=== PATIENT | female | born 1955 | race Caucasian/White ===

== ENCOUNTER → 2016-10-02 | Outpatient (CLI) | payer MEDICARE, OTHER ==
--- NOTE | 2016-10-02 19:48 | WWHP ---
DATE OF DICTATION: 10/02/2016 CHIEF COMPLAINT: The patient's here for her routine gynecologic exam and mammogram. HISTORY OF PRESENT ILLNESS: This is a 61-year-old with an LMP of 2006. The patient has experienced occasional right pelvic and right lower quadrant abdominal pain. She states this has been infrequent and feels like gas pains. She states they are also fairly brief when they do occur. She is not certain how long it has been going on, but it has been at least the last couple of months. She denies any pain at this time. The patient had an abnormal Pap smear on 07/27/15 which showed ASCUS with positive high-risk HPV testing. Colposcopy was recommended, but she did not have this done. She states she did not do it for financial reasons. PAST MEDICAL HISTORY: 1. Hypothyroidism. 2. CIS of the right breast, status post lumpectomy in 2002. 3. CIS of the left breast, status post left lumpectomy. She did not require any adjuvant therapy. 4. ADHD. 5. Depression. 6. Anxiety. 7. Arthritis. 8. Gastroesophageal reflux disease. 9. Osteopenia. MEDICATIONS: 1. Synthroid 125 mcg daily. 2. Adderall 10 mg b.i.d. 3. Celexa 20 mg daily. 4. Omeprazole 40 mg daily. 5. Calcium supplement daily. 6. Vitamin D supplement daily. 7. Vitamin B complex daily. 8. Multivitamin daily. 9. Aleve p.r.n. ALLERGIES: VICODIN, which caused pruritus. PAST SURGICAL HISTORY: 1. section x3. 2. Right breast lumpectomy in 2002. 3. Knee surgery in the past. 4. Cholecystectomy. 5. Tonsillectomy. 6. Appendectomy. 7. Left lumpectomy in the past. 8. Colonoscopy with upper endoscopy in 2014; this was her second colonoscopy. 9. Right shoulder surgery in 2016. 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 No other history of STDs. FAMILY HISTORY: Mother had a CVA and aortic aneurysm. Grandmother had some type of cancer but is uncertain of the type. Both grandmothers had diabetes. Her son was diagnosed with colon cancer. SOCIAL HISTORY: She denies tobacco and drug use. She has zero to 1 alcoholic drinks per month. She is and has been with her boyfriend since 2011 and lives with him. She is considered disabled. REVIEW OF SYSTEMS: Weight has been stable. She denies cardiac or GI problems. RESPIRATORY: She is getting over a cold. PHYSICAL EXAM: Blood pressure 134/78. Height 5 feet 2-1/2 inches. Weight 174 pounds. Temperature 98.4, pulse 96. This is a well-developed, well-nourished white female who is alert and oriented x3, in no acute distress. HEENT is within normal limits. NECK: Supple without mass or thyromegaly. CHEST AND LUNGS: Clear to auscultation. HEART: Regular rate and rhythm. Breasts are without mass or discharge. Axillary exam is negative for adenopathy. BACK: Negative for CVA tenderness. ABDOMEN: Soft, nontender, without palpable masses. PELVIC EXAM: External genitalia reveal mild to moderate atrophy without lesions. Vagina reveals mild to moderate atrophy without lesions. There is no evidence of prolapse. The uterus is midposition, nongravid size and nontender. There are no palpable adnexal masses or tenderness. Rectovaginal exam is negative for mass or tenderness and is negative for occult blood. EXTREMITIES: Nontender. IMPRESSION: 1. A 61-year-old menopausal female with intermittent brief right pelvic pains without any significant physical findings at this time, and she is without pain at this time. 2. History of carcinoma in situ of the breasts with normal breast exam. 3. History of osteopenia. 4. History of abnormal Pap smear showing ASCUS with positive high-risk HPV; colposcopic followup was not done as recommended. PLAN: 1. Pap smear was performed. If the Pap smear shows the same or anything greater, she will again be sent for colposcopic examination. 2. Self breast examination was discussed. 3. Mammogram will be done today. 4. Osteoporosis prevention was discussed. Will plan on repeating bone density testing next year. 5. Pelvic ultrasound will be ordered. 6. She will return in one year.
--- NOTE | 2016-10-03 09:38 | MM ---
Reason for exam: screening (asymptomatic). Last mammogram was performed 1 year and 2 months ago. History: Patient is postmenopausal and has history of breast cancer at age 48. Excisional biopsy of the left breast, December 03, 2006. Benign US left CoreBiopsy of the left breast, May 31, 2006. Lumpectomy of the right breast, April 2003. Malignant stereotactic core biopsy of the right breast, April 08, 2003. Physical Findings: A clinical breast exam by your physician is recommended on an annual basis and results should be correlated with mammographic findings. MG 3D Screening Mammo W/Cad Bilateral CC and MLO view(s) were taken. Prior study comparison: July 27, 2015, bilateral MG 3d diag mammo w/cad SH[facility]ON. July 14, 2014, bilateral MG diagnostic mammo w CAD SH[facility]ON. There are scattered fibroglandular densities. Finding: There is a 6 mm equal density (isodense), circumscribed round mass medially in the left breast. New finding since July 27, 2015 and July 14, 2014. ASSESSMENT: Incomplete: need additional imaging evaluation, BI-RAD 0 RECOMMENDATION: Special view mammogram of the left breast. If lesion persists on supplemental views, image directed ultrasound is recommended. [facility] will attempt to contact patient to return for supplemental views and ultrasound if indicated.
== END | disposition home or self-care (01) ==
LOC: WWCWWP 08:39
PROVIDERS: ATTEND Obstetrics & Gynecology
DX: Z12.31 Encounter for screening mammogram for malignant neoplasm of breast (principal); R92.8 Other abnormal and inconclusive findings on diagnostic imaging of breast
CPT/HCPCS: 77063; G0202

== ENCOUNTER 2016-10-18 08:11 | Emergency (ER) | payer MEDICARE, OTHER ==
--- NOTE | 2016-10-18 09:34 | XR ---
EXAMINATION TYPE: XR foot complete RT DATE OF EXAM: 10/18/2016 9:30 AM COMPARISON: NONE HISTORY: Pain TECHNIQUE: Three views are submitted. FINDINGS: Fracture involving the base proximal phalanx third digit with extension to the articular surface. Mil d displacement. Calcaneal spur noted. Arthropathy first MTP. IMPRESSION: 1. Fracture base proximal phalanx third digit.
--- NOTE | 2016-10-18 09:39 | ED ---
Lower Extremity Injury HPI - General Chief Complaint: Extremity Injury, Lower Stated Complaint: RT FOOT INJURY FROM FALL Time Seen by Provider: 10/18/16 09:00 Source: patient, RN notes reviewed Mode of arrival: ambulatory Limitations: no limitations - History of Present Illness Initial Comments: 61-year-old female presents emergency Department chief complaint right foot injury. Patient states that she slipped on some stairs caught her foot on the railing. Patient states there is bruising noted between the second and fourth digit. Patient states that it is painful to walk on. Patient offers no other complaints at this time. She states she's had a prior fracture right foot. Review of Systems ROS Statement: Those systems with pertinent positive or pertinent negative responses have been documented in the HPI. ROS Other: All systems not noted in ROS Statement are negative. Past Medical History Additional Past Medical History / Comment(s): seasonal allergies History of Any Multi-Drug Resistant Organisms: None Reported Past Surgical History: Adenoidectomy, Hysterectomy, Orthopedic Surgery, Tonsillectomy Additional Past Surgical History / Comment(s): tibia, replacement of right shoulder Past Psychological History: No Psychological Hx Reported Smoking Status: Never smoker Past Alcohol Use History: Occasional Past Drug Use History: None Reported General Exam Limitations: no limitations General appearance: alert, in no apparent distress Respiratory exam: Present: normal lung sounds bilaterally. Absent: respiratory distress, wheezes, rales, rhonchi, stridor Cardiovascular Exam: Present: regular rate, normal rhythm, normal heart sounds. Absent: systolic murmur, diastolic murmur, rubs, gallop, clicks Back exam: Present: other (Right foot ecchymosis noted from digits 2 through 4 with tenderness minimal tenderness and MTP joints., Neurovascular intact no ankle tenderness.) Neurological exam: Present: alert, oriented X3, CN II-XII intact Course Vital Signs 10/18/16 08:44 Temperature 97.9 F Pulse Rate 92 Respiratory 20 Rate Blood Pressure 142/75 O2 Sat by Pulse 98 Oximetry Medical Decision Making - Medical Decision Making 61-year-old female presented for right foot injury. Patient has a fracture of the third digit at the base. Patient we given postop shoe and discharge. - Radiology Data Radiology results: report reviewed, image reviewed X-ray right foot fracture of the third digit base Disposition Clinical Impression: Fracture of toe of right foot Disposition: HOME SELF-CARE Condition: Stable Instructions: Toe Fracture (ED) Additional Instructions: Please return to the Emergency Department if symptoms worsen or any other concerns. Time of Disposition: 09:39
[2016-10-18 09:47] VITALS: BP 157/68; PULSE 94; RESP 16; TEMP 98.6
== END 2016-10-18 09:46 | disposition home or self-care (01) ==
LOC: EC 08:11
DX: S92.511A Displaced fracture of proximal phalanx of right lesser toe(s), initial encounter for closed fracture (principal); Z98.890 Other specified postprocedural states; W10.9XXA Fall (on) (from) unspecified stairs and steps, initial encounter
CPT/HCPCS: 76856; 99283

== ENCOUNTER → 2016-10-18 | Outpatient (CLI) | payer MEDICARE, OTHER ==
--- NOTE | 2016-10-18 08:14 | MM ---
Reason for exam: additional evaluation requested from abnormal screening. Last mammogram was performed 1 month ago. History: Patient is postmenopausal and has history of breast cancer at age 48. Excisional biopsy of the left breast, December 03, 2006. Benign US left CoreBiopsy of the left breast, May 31, 2006. Lumpectomy of the right breast, April 2003. Malignant stereotactic core biopsy of the right breast, April 08, 2003. Physical Findings: Nurse did not find any significant physical abnormalities on exam. MG 3D Work Up W/Cad LT CC, MLO, and XCCM view(s) were taken of the left breast. Prior study comparison: October 02, 2016, bilateral MG 3d screening mammo w/cad. July 27, 2015, bilateral MG 3d diag mammo w/cad SH[facility]ON. July 14, 2014, bilateral MG diagnostic mammo w CAD SHARON. There are scattered fibroglandular densities. Lesion does not persist. It is well defined and correlates with mole or skin lesion on physical exam. These results were verbally communicated with the patient and result sheet given to the patient on 10/18/16. ASSESSMENT: Benign, BI-RAD 2 RECOMMENDATION: Return to routine screening mammogram schedule for both breasts.
--- NOTE | 2016-10-18 08:20 | US ---
EXAMINATION TYPE: US pelvic complete DATE OF EXAM: 10/18/2016 8:04 AM COMPARISON: NONE CLINICAL HISTORY: R10.2 RT PELVIC PAIN. Right side cramping that comes and goes. TECHNIQUE: Transabdominal (TA) pelvic ultrasound. Date of LMP: Postmenopausal EXAM MEASUREMENTS: Uterus: 6.9 x 4.2 x 2.7 cm Endometrial Stripe: 0.3 cm Right Ovary: 2.4 x 1.1 x 0.8 cm Left Ovary: 2.1 x 1.5 x 1.4 cm TECHNOLOGIST IMPRESSION: 1. Uterus: Anteverted wnl 2. Endometrium: wnl 3. Right Ovary: wnl 4. Left Ovary: wnl. 5. Bilateral Adnexa: wnl 6. Posterior cul-de-sac: no free fluid Cervix- nabothian cyst Uterus is anteverted in shape and within normal limits in size. Endometrial stripe is not well seen a nd presumed not thickened. A 6 mm cystic lesion anteriorly of cervix could reflect small nabothian cy st. No free fluid is seen in pelvic cul-de-sac. Both ovaries are identified. No concerning adnexal masses seen. IMPRESSION: No significant finding is seen to account for patient's symptoms.
== END | disposition home or self-care (01) ==
LOC: RADUSWWP 07:11
PROVIDERS: ATTEND Obstetrics & Gynecology
DX: R10.2 Pelvic and perineal pain (principal)
CPT/HCPCS: 76856

== ENCOUNTER → 2017-10-08 | Outpatient (CLI) | payer MEDICARE ==
--- NOTE | 2017-10-08 10:29 | WWHP ---
[facility] - HISTORY AND PHYSICAL DATE OF SERVICE: 10/08/2017 CHIEF COMPLAINT: The patient is here for her routine gynecologic exam and mammogram. HPI: This is a 62-year-old, G3, P3 with an LMP of 2006. The patient has a new sexual partner and has been having some vaginal dryness. She has been using coconut oil as a lubricant. She also has been treated for urinary tract infections a couple of times over the past year. She denies any postmenopausal bleeding. PAST MEDICAL HISTORY: Hypothyroidism, CIS of the right breast and status post right lumpectomy in 2002, CIS of the left breast and status post lumpectomy. Also history of ADHD, depression, anxiety, arthritis, gastroesophageal reflux disease and osteopenia. MEDICATIONS: 1. Synthroid 125 mcg daily. 2. Calcium 1200 mg daily. 3. Vitamin D3, 5000 units daily. 4. Centrum Silver 1 daily. 5. Cranberry supplement daily. 6. Adderall 10 mg 1 to 2 times daily. 7. Omeprazole 1 daily. ALLERGIES: Allergies to VICODIN. PAST SURGICAL HISTORY: Unchanged from the 10/02/2016 H and P. 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 FAMILY HISTORY: Unchanged from the 10/02/2016 H and P. SOCIAL HISTORY: She denies tobacco and drug use and has 0 to 3 alcohol containing drinks per month. She is and has been with her current boyfriend since 2017, but does not live with him. She is considered disabled. REVIEW OF SYSTEMS: Weight has been stable. She denies respiratory, cardiac or GI problems. She has had occasional dizzy spells and has seen her doctor for this. PHYSICAL EXAM: Blood pressure 137/79, height 5 feet 2-1/2 inches, weight 176 pounds, temperature 97.7, pulse 86. This is a well-developed, well-nourished, white female, who is alert and oriented x3, in no acute distress. HEENT is within normal limits. NECK: Supple without mass or thyromegaly. CHEST AND LUNGS: Clear to auscultation. HEART: Regular rate and rhythm. Breasts are without mass or discharge. Axillary exam is negative for adenopathy. BACK: Negative for CVA tenderness. ABDOMEN: Soft, nontender, without palpable masses. PELVIC EXAM: External genitalia reveals mild atrophy without lesions. Cervix and vagina reveals mild atrophy without lesions. There is no evidence of prolapse. The uterus is mid position, nongravid size and nontender. There are no palpable adnexal masses or tenderness. Rectovaginal exam is negative for mass or tenderness and is negative for occult blood. EXTREMITIES: Nontender. IMPRESSION: 1. A 62-year-old menopausal female with normal gynecologic exam. 2. Vaginal dryness with sexual intercourse secondary to atrophy. 3. History of bilateral breast carcinoma in situ. 4. History of osteopenia. 5. History of previous ASCUS Pap smear with positive high-risk HPV testing in 07/2015 and she did have a normal Pap smear in 2017. PLAN: 1. Pap smear was repeated because of her history of ASCUS Pap smear. If this one is normal, we will return to regular cervical screening. 2. Self breast examination was discussed. 3. Mammogram will be done today. 4. Osteoporosis prevention was discussed. I have recommended bone density screening because of her history of osteopenia and she would like to do this next year. We have discussed the importance of adequate calcium, vitamin D and regular exercise. 5. We have discussed the option of vaginal estrogen because of her vaginal dryness, but because of her history of carcinoma in situ of both breasts, I have recommended to try without and she is in agreement with this. She will use vaginal lubricants and vaginal moisturizer over the counter. 6. She will return in 1 year. MMODL / IJN: [id number] /
--- NOTE | 2017-10-10 10:11 | MM ---
Reason for exam: screening (asymptomatic). Last mammogram was performed 1 year ago. History: Patient is postmenopausal and has history of breast cancer at age 48. Excisional biopsy of the left breast, December 03, 2006. Benign US left CoreBiopsy of the left breast, May 31, 2006. Lumpectomy of the right breast, April 2003. Malignant stereotactic core biopsy of the right breast, April 08, 2003. Physical Findings: A clinical breast exam by your physician is recommended on an annual basis and results should be correlated with mammographic findings. MG 3D Screening Mammo W/Cad Bilateral CC and MLO view(s) were taken. Prior study comparison: October 18, 2016, left breast MG 3d work up w/cad LT. October 02, 2016, bilateral MG 3d screening mammo w/cad. The breast tissue is heterogeneously dense. This may lower the sensitivity of mammography. There is no discrete abnormality. ASSESSMENT: Negative, BI-RAD 1 RECOMMENDATION: Follow-up diagnostic mammogram of both breasts in 1 year.
== END | disposition home or self-care (01) ==
LOC: WWCWWP 09:48
PROVIDERS: ATTEND Obstetrics & Gynecology
DX: Z12.31 Encounter for screening mammogram for malignant neoplasm of breast (principal)
CPT/HCPCS: 77063; 77067

== ENCOUNTER 2018-05-01 12:50 | Observation (INO) | payer MEDICARE, OTHER ==
[2018-05-01 14:03] LABS: Basophils % (A) 1 %; Eosinophils # (A) 0.2 k/uL (0-0.7); Eosinophils % (A) 3 %; HCT 42.9 % (34.0-46.0); HGB 13.8 gm/dL (11.4-16.0); Lymphocytes # (A) 1.7 k/uL (1.0-4.8); Lymphocytes % (A) 30 %; MCH 28.6 pg (25.0-35.0); MCHC 32.1 g/dL (31.0-37.0); MCV 89.1 fL (80.0-100.0); Mean Platelet Volume 7.7; Monocytes # (A) 0.3 k/uL (0-1.0); Monocytes % (A) 6 %; Neutrophils # (A) 3.3 k/uL (1.3-7.7); Neutrophils % (A) 57 %; Platelet Count 162 k/uL (150-450); RBC 4.81 m/uL (3.80-5.40); RDW 13.6 % (11.5-15.5); WBC 5.7 k/uL (3.8-10.6)
[2018-05-01 14:07] LABS: Appearance,Urine Clear (Clear); Bacteria,Urine Rare /hpf; Bilirubin,Urine Negative (Negative); Blood,Urine Negative (Negative); Color,Urine Yellow; Glucose,Urine (UA) Negative (Negative); Ketones,Urine Negative (Negative); Leukocyte Esterase,Urine Small (Negative); Nitrite,Urine Negative (Negative); PH, Urine 7.5 (5.0-8.0); Protein,Urine Negative (Negative); RBC,Urine 1 /hpf (0-5); Squamous Epithelial Cell,Urine 4 /hpf (0-4); Urobilinogen,Urine <2.0 mg/dL (<2.0); WBC,Urine <1 /hpf (0-5)
[2018-05-01 14:15] LABS: ALT 16 U/L (9-52); AST 21 U/L (14-36); Albumin 4.2 g/dL (3.5-5.0); Alkaline Phosphatase 86 U/L (38-126); Anion Gap 9 mmol/L; Blood Urea Nitrogen 10 mg/dL (7-17); Calcium 9.6 mg/dL (8.4-10.2); Carbon Dioxide 29 mmol/L (22-30); Chloride 105 mmol/L (98-107); Glucose 100 mg/dL (74-99); Potassium 4.4 mmol/L (3.5-5.1); Sodium 143 mmol/L (137-145); Total Bilirubin 0.5 mg/dL (0.2-1.3); Total Protein 7.5 g/dL (6.3-8.2)
--- NOTE | 2018-05-01 14:23 | ED ---
Dizziness HPI - General Chief Complaint: Dizziness Stated Complaint: Dizzy/fall Time Seen by Provider: 05/01/18 14:00 Source: patient, RN notes reviewed Mode of arrival: wheelchair Limitations: no limitations - History of Present Illness Initial Comments: This is a 63-year-old female who presents with complaints of dizziness she's been seen by Dr. bolden dizziness she was sent in for evaluation while driving she became dizzy again. She states she gets dizzy intermittently today was while driving she denies any focal deficits she states that in February of this year she did trip and fall he had bruising to her face and had no focal weakness. The dizziness associated worse with walking she states. She's had no cough phlegm production no loss of function to her upper or lower extremities she has noticed L on and off palpitations. She complains some neck and occipital pain. She was never evaluated after her fall. MD Complaint: dizziness, lightheadedness - Related Data Home Medications Medication Instructions Recorded Confirmed Dextroamphetamine/Amphetamine 10 mg PO BID 10/18/16 05/01/18 [Adderall] Levothyroxine Sodium [Synthroid] 125 mcg PO DAILY 10/18/16 05/01/18 Omeprazole [PriLOSEC] 40 mg PO HS 10/18/16 05/01/18 Cholecalciferol [Vitamin D3] 5,000 unit PO DAILY 05/01/18 05/01/18 Fexofenadine HCl [Leelee Allergy] 180 mg PO DAILY 05/01/18 05/01/18 Multivit-Min/Iron/Folic/Lutein 1 tab PO DAILY 05/01/18 05/01/18 [Centrum Silver Women Tablet] Naproxen Sodium [Aleve] 220 mg PO BID 05/01/18 05/01/18 Allergies Allergy/AdvReac Type Severity Reaction Status Date / Time codeine Allergy Itching Verified 05/01/18 14:05 Review of Systems ROS Statement: Those systems with pertinent positive or pertinent negative responses have been documented in the HPI. ROS Other: All systems not noted in ROS Statement are negative. Past Medical History Past Medical History: GERD/Reflux, Thyroid Disorder Additional Past Medical History / Comment(s): seasonal allergies History of Any Multi-Drug Resistant Organisms: None Reported Past Surgical History: Adenoidectomy, Section, Orthopedic Surgery, Tonsillectomy Additional Past Surgical History / Comment(s): tibia, replacement of right shoulder Past Psychological History: ADD/ADHD Smoking Status: Never smoker Past Alcohol Use History: Occasional Past Drug Use History: None Reported General Exam - General Exam Comments Initial Comments: This is a well-developed well-nourished awake alert oriented 3 female Limitations: no limitations General appearance: alert, in no apparent distress Head exam: Present: atraumatic, normocephalic, normal inspection Eye exam: Present: normal appearance, PERRL, EOMI. Absent: scleral icterus, conjunctival injection, periorbital swelling ENT exam: Present: normal exam, mucous membranes moist Neck exam: Present: normal inspection, tenderness. Absent: meningismus, lymphadenopathy Respiratory exam: Present: normal lung sounds bilaterally. Absent: respiratory distress, wheezes, rales, rhonchi, stridor Cardiovascular Exam: Present: normal rhythm, tachycardia, normal heart sounds. Absent: systolic murmur, diastolic murmur, rubs, gallop, clicks GI/Abdominal exam: Present: soft, normal bowel sounds. Absent: distended, tenderness, guarding, rebound, rigid Extremities exam: Present: normal inspection, full ROM, normal capillary refill. Absent: tenderness, pedal edema, joint swelling, calf tenderness Back exam: Present: normal inspection Neurological exam: Present: alert, oriented X3, CN II-XII intact Psychiatric exam: Present: normal affect, normal mood Skin exam: Present: warm, dry, intact, normal color. Absent: rash Course Vital Signs 05/01/18 05/01/18 05/01/18 12:54 15:00 16:00 Temperature 98.6 F Pulse Rate 117 H 90 90 Respiratory 20 20 18 Rate Blood Pressure 156/81 134/78 130/74 O2 Sat by Pulse 99 99 98 Oximetry EKG Findings - EKG Results: EKG: interpreted by ERMD, WNL, sinus rhythm, normal axis, normal QRS, normal ST/ T, no acute changes (Sinus rhythm rate 86. Interval 122 QRS duration 74 QT since QTC 388/[address]-T wave changes.) Medical Decision Making - Medical Decision Making The patient persists in being dizzy. She will be admitted for evaluation by both cardiology and neurology. - Lab Data Result diagrams: 05/01/18 13:40 05/01/18 13:40 Lab Results 05/01/18 05/01/18 05/01/18 Range/Units 13:40 13:40 13:40 WBC 5.7 (3.8-10.6) k/uL RBC 4.81 (3.80-5.40) m/uL Hgb 13.8 (11.4-16.0) gm/dL Hct 42.9 (34.0-46.0) % MCV 89.1 (80.0-100.0) fL MCH 28.6 (25.0-35.0) pg MCHC 32.1 (31.0-37.0) g/dL RDW 13.6 (11.5-15.5) % Plt Count 162 (150-450) k/uL Neutrophils % 57 % Lymphocytes % 30 % Monocytes % 6 % Eosinophils % 3 % Basophils % 1 % Neutrophils # 3.3 (1.3-7.7) k/uL Lymphocytes # 1.7 (1.0-4.8) k/uL Monocytes # 0.3 (0-1.0) k/uL Eosinophils # 0.2 (0-0.7) k/uL Basophils # 0.0 (0-0.2) k/uL Sodium 143 (137-145) mmol/L Potassium 4.4 (3.5-5.1) mmol/L Chloride 105 (98-107) mmol/L Carbon Dioxide 29 (22-30) mmol/L Anion Gap 9 mmol/L BUN 10 (7-17) mg/dL Creatinine 0.52 (0.52-1.04) mg/dL Est GFR (CKD-EPI)AfAm >90 (>60 ml/min/1.73 sqM) Est GFR (CKD-EPI)NonAf >90 (>60 ml/min/1.73 sqM) Glucose 100 H (74-99) mg/dL Calcium 9.6 (8.4-10.2) mg/dL Magnesium (1.6-2.3) mg/dL Total Bilirubin 0.5 (0.2-1.3) mg/dL AST 21 (14-36) U/L ALT 16 (9-52) U/L Alkaline Phosphatase 86 (38-126) U/L Total Creatine Kinase (30-135) U/L CK-MB (CK-2) (0.0-2.4) ng/mL CK-MB (CK-2) Rel Index Troponin I (0.000-0.034) ng/mL Total Protein 7.5 (6.3-8.2) g/dL Albumin 4.2 (3.5-5.0) g/dL TSH (0.465-4.680) mIU/L Urine Color Yellow Urine Appearance Clear (Clear) Urine pH 7.5 (5.0-8.0) Ur Specific [place] 1.010 (1.001-1.035) Urine Protein Negative (Negative) Urine Glucose (UA) Negative (Negative) Urine Ketones Negative (Negative) Urine Blood Negative (Negative) Urine Nitrite Negative (Negative) Urine Bilirubin Negative (Negative) Urine Urobilinogen <2.0 (<2.0) mg/dL Ur Leukocyte Esterase Small H (Negative) Urine RBC 1 (0-5) /hpf Urine WBC <1 (0-5) /hpf Ur Squamous Epith Cells 4 (0-4) /hpf Urine Bacteria Rare H (None) /hpf 05/01/18 05/01/18 Range/Units 13:40 13:40 WBC (3.8-10.6) k/uL RBC (3.80-5.40) m/uL Hgb (11.4-16.0) gm/dL Hct (34.0-46.0) % MCV (80.0-100.0) fL MCH (25.0-35.0) pg MCHC (31.0-37.0) g/dL RDW (11.5-15.5) % Plt Count (150-450) k/uL Neutrophils % % Lymphocytes % % Monocytes % % Eosinophils % % Basophils % % Neutrophils # (1.3-7.7) k/uL Lymphocytes # (1.0-4.8) k/uL Monocytes # (0-1.0) k/uL Eosinophils # (0-0.7) k/uL Basophils # (0-0.2) k/uL Sodium (137-145) mmol/L Potassium (3.5-5.1) mmol/L Chloride (98-107) mmol/L Carbon Dioxide (22-30) mmol/L Anion Gap mmol/L BUN (7-17) mg/dL Creatinine (0.52-1.04) mg/dL Est GFR (CKD-EPI)AfAm (>60 ml/min/1.73 sqM) Est GFR (CKD-EPI)NonAf (>60 ml/min/1.73 sqM) Glucose (74-99) mg/dL Calcium (8.4-10.2) mg/dL Magnesium 2.0 (1.6-2.3) mg/dL Total Bilirubin (0.2-1.3) mg/dL AST (14-36) U/L ALT (9-52) U/L Alkaline Phosphatase (38-126) U/L Total Creatine Kinase 35 (30-135) U/L CK-MB (CK-2) 1.0 (0.0-2.4) ng/mL CK-MB (CK-2) Rel Index 2.9 Troponin I <0.012 (0.000-0.034) ng/mL Total Protein (6.3-8.2) g/dL Albumin (3.5-5.0) g/dL TSH 0.869 (0.465-4.680) mIU/L Urine Color Urine Appearance (Clear) Urine pH (5.0-8.0) Ur Specific [place] (1.001-1.035) Urine Protein (Negative) Urine Glucose (UA) (Negative) Urine Ketones (Negative) Urine Blood (Negative) Urine Nitrite (Negative) Urine Bilirubin (Negative) Urine Urobilinogen (<2.0) mg/dL Ur Leukocyte Esterase (Negative) Urine RBC (0-5) /hpf Urine WBC (0-5) /hpf Ur Squamous Epith Cells (0-4) /hpf Urine Bacteria (None) /hpf - Radiology Data Radiology results: report reviewed (I did review the imaging and report no acute findings.), image reviewed Disposition Clinical Impression: Dizziness of unknown cause, Palpitations Disposition: ADMITTED IP TO THIS [facility] Condition: Stable Referrals: Paola Bhatt DO [Primary Care Provider] - 1-2 days
--- NOTE | 2018-05-01 14:50 | CT ---
EXAMINATION TYPE: CT brain wo con DATE OF EXAM: 05/01/2018 COMPARISON: None HISTORY: Dizziness CT DLP: [address] of the brain was performed. The ventricles, basal cisterns and sulci overlying the cerebral convexities demonstrate mild enlargem ent. There is no evidence for intracranial hemorrhage or sulcal effacement. There is decreased attenuation about the periventricular white matter and deep white matter of both c erebral hemispheres, compatible with chronic small vessel ischemia. Differential diagnosis does inclu de demyelination. Focal calcification left basal ganglia. No mass effects are seen.No midline shift. Osseous calvarium is intact. If symptoms persist consider MRI. IMPRESSION: 1. Age related atrophic and chronic small vessel ischemic change without acute intracranial process s een at this time.
[2018-05-01 14:52] LABS: Creatine Kinase 35 U/L (30-135)
--- NOTE | 2018-05-01 15:00 | XR ---
EXAMINATION TYPE: XR chest 2V DATE OF EXAM: 05/01/2018 COMPARISON: NONE TECHNIQUE: PA and lateral views submitted. HISTORY: Cough FINDINGS: The lungs are clear and there is no pneumothorax, pleural effusion, or focal pneumonia. Prostatic r ight shoulder. Diffuse osteopenia. No overt failure. Hypertrophic and degenerative change of the spin e. Postsurgical change right upper quadrant. IMPRESSION: 1. No acute process.
[2018-05-01 15:05] LABS: Troponin I <0.012 ng/mL (0.000-0.034)
[2018-05-01] MEDS ORDERED: NALOXONE 0.4 MG/ML 1 ML VIAL IV PRN (17:11)
[2018-05-01] MEDS ORDERED: MECLIZINE 12.5 MG TAB PO STA (17:15)
[2018-05-01] MEDS ORDERED: MECLIZINE 25 MG TAB PO PRN (18:28)
--- NOTE | 2018-05-01 18:29 | P.HPIM ---
History of Present Illness H&P Date: 05/01/18 Chief Complaint: Dizziness Patient is a 63-year-old female with past medical history of osteoarthritis, hypothyroidism, and GERD who presented to the ED with a chief complaint of dizziness. The patient notes that her dizziness has been ongoing for several years, described as a room spinning sensation, associated with certain head movements, alleviated with rest, with associated left ear fullness and pressure sensation. The most recent episode was earlier today, while the patient was driving and developed the sudden onset of dizziness with palpitations that she noted for the first time, and sensation that she was going to faint. She otherwise denied any associated visual disturbances, chest pain, shortness of breath, nausea, vomiting, weakness, numbness, or headache. The patient notes that she has seen many providers for this similar complaints without any definitive diagnosis being made. She was given meclizine by previous PCP which provided little relief. She is further denying abdominal pain, diarrhea, constipation, recent travel, or sick contacts. Review of Systems Pertinent positives and negatives as discussed in HPI, a complete review of systems was performed and all other systems are negative. Past Medical History Past Medical History: GERD/Reflux, Thyroid Disorder Additional Past Medical History / Comment(s): seasonal allergies History of Any Multi-Drug Resistant Organisms: None Reported Past Surgical History: Adenoidectomy, Section, Orthopedic Surgery, Tonsillectomy Additional Past Surgical History / Comment(s): tibia, replacement of right shoulder Past Psychological History: ADD/ADHD Smoking Status: Never smoker Past Alcohol Use History: Occasional Past Drug Use History: None Reported Medications and Allergies Home Medications Medication Instructions Recorded Confirmed Type Dextroamphetamine/Amphetamine 10 mg PO BID 10/18/16 05/01/18 History [Adderall] Levothyroxine Sodium [Synthroid] 125 mcg PO DAILY 10/18/16 05/01/18 History Omeprazole [PriLOSEC] 40 mg PO HS 10/18/16 05/01/18 History Cholecalciferol [Vitamin D3] 5,000 unit PO DAILY 05/01/18 05/01/18 History Fexofenadine HCl [Leelee Allergy] 180 mg PO DAILY 05/01/18 05/01/18 History Multivit-Min/Iron/Folic/Lutein 1 tab PO DAILY 05/01/18 05/01/18 History [Centrum Silver Women Tablet] Naproxen Sodium [Aleve] 220 mg PO BID 05/01/18 05/01/18 History Allergies Allergy/AdvReac Type Severity Reaction Status Date / Time codeine Allergy Itching Verified 05/01/18 14:05 Physical Exam Vitals: Vital Signs Temp Pulse Resp BP Pulse Ox 05/01/18 16:00 90 18 130/74 98 05/01/18 15:00 90 20 134/78 99 05/01/18 12:54 98.6 F 117 H 20 156/81 99 Intake and Output 05/01/18 05/01/18 05/01/18 06:59 14:59 22:59 Other: Weight 79.379 kg General: non toxic, no distress, appears at stated age, normal weight Derm: no unusual rashes/lesions no unusual ecchymoses, warm, dry Head: atraumatic, normocephalic, symmetric Eyes: EOMI, no lid lag, anicteric sclera, pupils equal round reactive to light ENT: Nose and ears atraumatic, no thrush, no pharyngeal erythema Neck: No thyromegaly, no cervical lymphadenopathy, trachea midline, supple Mouth: no lip lesion, mucus membranes moist Cardiovascular: S1S2 reg, no murmur, positive posterior tibial pulse bilateral, no edema, capillary refill less than 2 seconds Lungs: CTA bilateral, no rhonchi, no rales , no accessory muscle use Abdominal: soft, nontender to palpation, no guarding, no appreciable organomegaly, normal bowel sounds Ext: no gross muscle atrophy, muscle strength 5 out of 5 in all 4 extremities grossly, no contractures, Neuro: CN II-XI grossly intact, light touch intact all 4 extremities, finger to nose within normal limits, Psych: Alert, oriented, appropriate affect Results CBC & Chem 7: 05/01/18 13:40 05/01/18 13:40 Labs: Abnormal Lab Results - Last 24 Hours (Table) 05/01/18 05/01/18 Range/Units 13:40 13:40 Glucose 100 H (74-99) mg/dL Ur Leukocyte Esterase Small H (Negative) Urine Bacteria Rare H (None) /hpf Assessment and Plan Plan: Dizziness, vertigo, possibly BPPV vs mennier's vs brainstem lesion -Consult neurology -Consider CTA of head and neck -We'll start meclizine -Neuro checks -Fall, seizure precautions Hypothyroidism -Continue with home dose of levothyroxine DVT//GI prophylaxis -Lovenox subcu - No indication for GI prophylaxis The patient is placed in observation with an anticipated less than 2 per night stay for evaluation of dizziness CODE STATUS:Full Discussed with: Patient Anticipated discharge date: 05/02/[address]: Home A total of 60 minutes was spent on the care of this complex patient more than 50 % of the time was spent in counseling and care coordination.
[2018-05-01] MEDS: SODIUM CHLORIDE 0.9% 1,000 ML IV SCH (20:00)
[2018-05-01] MEDS: NAPROXEN 250 MG TAB PO SCH (20:15)
[2018-05-01] MEDS: PANTOPRAZOLE 40 MG TABLET PO SCH (20:16)
[2018-05-01] MEDS ORDERED: HYDROcodone/APAP 5-325MG 1 EACH TAB PO PRN (20:20)
[2018-05-01] MEDS ORDERED: ALPRAZolam 0.25 MG TAB PO PRN (20:20)
[2018-05-01] MEDS: MELATONIN 3 MG TABLET PO SCH (21:24)
[2018-05-02] MEDS: LEVOTHYROXINE 125 MCG TAB PO SCH (06:00)
--- NOTE | 2018-05-02 08:24 | P.CRDCN ---
History of Present Illness Consult date: 05/02/18 History of present illness: This is a 63-year-old female with history of intermittent dizziness/vertigo who was admitted to the hospital with increasing episodes of vertigo. Yesterday she was driving and started having an episode and finally came to the emergency room. It affects her balance. She also feels a stuffiness on the left side of her face. Patient has chronic ALLERGIES and sinusitis. Has seen an surgical asst in the past. We're asked to see the patient because patient complained of intermittent palpitations. However, since admission, no arrhythmias are detected. Denied any chest pain. Had a cardiac evaluation long time ago which was negative. Her EKGs did not reveal any acute changes. On her troponin is within normal limits. Patient is waiting to be seen by the neurologist. From Cardec standpoint I'll get an echocardiogram to assess LV function and continue to monitor her for any arrhythmias. If no arrhythmias are detected, patient will be discharged home when cleared by neurology. Outpatient monitoring could be considered. Review of Systems As per the chart Past Medical History Past Medical History: GERD/Reflux, Thyroid Disorder Additional Past Medical History / Comment(s): seasonal allergies, fx toe rt foot ,. faell february 2018 facial bruising,add, hx crushing injury lt tibia(sx-plate screws), History of Any Multi-Drug Resistant Organisms: None Reported Past Surgical History: Adenoidectomy, Section, Orthopedic Surgery, Tonsillectomy Additional Past Surgical History / Comment(s): lt tibia plate/screws, rt rotator cuff sx , rt shoulder replacment, x3 c-sections, ezekiel lumpectomies-benign , egd w/ dilation, colonoscopy. Past Anesthesia/Blood Transfusion Reactions: No Reported Reaction Smoking Status: Never smoker - Past Family History Mother Family Medical History: CVA/TIA Additional Family Medical History / Comment(s): aaa, sepsis Father Family Medical History: Hypertension Additional Family Medical History / Comment(s): djd Medications and Allergies Home Medications Medication Instructions Recorded Confirmed Type Dextroamphetamine/Amphetamine 10 mg PO BID 10/18/16 05/01/18 History [Adderall] Levothyroxine Sodium [Synthroid] 125 mcg PO DAILY 10/18/16 05/01/18 History Omeprazole [PriLOSEC] 40 mg PO HS 10/18/16 05/01/18 History Cholecalciferol [Vitamin D3] 5,000 unit PO DAILY 05/01/18 05/01/18 History Fexofenadine HCl [Leelee Allergy] 180 mg PO DAILY 05/01/18 05/01/18 History Multivit-Min/Iron/Folic/Lutein 1 tab PO DAILY 05/01/18 05/01/18 History [Centrum Silver Women Tablet] Naproxen Sodium [Aleve] 220 mg PO BID 05/01/18 05/01/18 History Allergies Allergy/AdvReac Type Severity Reaction Status Date / Time codeine Allergy Itching Verified 05/01/18 14:05 Physical Exam Vitals: Vital Signs Temp Pulse Pulse Resp BP BP Pulse Ox 05/02/18 07:10 98.2 F 74 18 105/63 97 05/02/18 03:50 18 05/02/18 03:25 97.8 F 74 16 106/63 97 05/02/18 00:00 97.9 F 80 18 97/64 94 L 05/01/18 23:59 18 05/01/18 20:00 18 05/01/18 19:00 97.8 F 82 18 131/82 96 05/01/18 18:00 84 18 132/73 98 05/01/18 17:00 82 18 142/70 98 05/01/18 16:00 90 18 130/74 98 05/01/18 15:00 90 20 134/78 99 05/01/18 12:54 98.6 F 117 H 20 156/81 99 Intake and Output 05/01/18 05/02/18 05/02/18 22:59 06:59 14:59 Other: # Voids 1 1 Weight 79.2 kg GENERAL EXAM: Patient is alert and oriented and doesn't appear to be in any acute distress HEENT: Normocephalic. Normal reaction of pupils, equal size, normal range of extraocular motion. No erythema or exudates in the throat. NECK: No masses, no nuchal rigidity. CHEST: No chest wall deformity. LUNGS: Equal air entry with no crackles or wheeze. HEART: S1 and S2 normal with no audible mumurs or gallops. Regular rhythm, femorals equal on both sides.. ABDOMEN: No hepatosplenomegaly, normal bowel sounds, no guarding or rigidity. SKIN: No rashes CENTRAL NERVOUS SYSTEM: No focal deficits. EXTREMITIES: No cyanosis, clubbing or edema. Results 05/01/18 13:40 05/01/18 13:40 Cardiac Enzymes 05/01/18 05/01/18 Range/Units 13:40 13:40 AST 21 (14-36) U/L CK-MB (CK-2) 1.0 (0.0-2.4) ng/mL Troponin I <0.012 (0.000-0.034) ng/mL CBC 05/01/18 Range/Units 13:40 WBC 5.7 (3.8-10.6) k/uL RBC 4.81 (3.80-5.40) m/uL Hgb 13.8 (11.4-16.0) gm/dL Hct 42.9 (34.0-46.0) % Plt Count 162 (150-450) k/uL Comprehensive Metabolic Panel 05/01/18 Range/Units 13:40 Sodium 143 (137-145) mmol/L Potassium 4.4 (3.5-5.1) mmol/L Chloride 105 (98-107) mmol/L Carbon Dioxide 29 (22-30) mmol/L BUN 10 (7-17) mg/dL Creatinine 0.52 (0.52-1.04) mg/dL Glucose 100 H (74-99) mg/dL Calcium 9.6 (8.4-10.2) mg/dL AST 21 (14-36) U/L ALT 16 (9-52) U/L Alkaline Phosphatase 86 (38-126) U/L Total Protein 7.5 (6.3-8.2) g/dL Albumin 4.2 (3.5-5.0) g/dL Current Medications Generic Name Dose Route Start Last Admin Trade Name Freq PRN Reason Stop Dose Admin Hydrocodone Bitart/Acetaminophen 1 each 05/01/18 20:20 [place] 5-325 PO Q6HR PRN Moderate Pain Alprazolam 0.25 mg 05/01/18 20:20 Xanax PO TID PRN Anxiety Cholecalciferol 5,000 unit 05/02/18 09:00 Vitamin D3 PO DAILY VIRGIL Enoxaparin Sodium 40 mg 05/02/18 09:00 Lovenox SQ DAILY VIRGLI Sodium Chloride 1,000 mls @ 20 mls/hr 05/01/18 17:15 05/01/18 20:00 Saline 0.9% IV Not Given .Q24H VIRGIL Levothyroxine Sodium 125 mcg 05/02/18 06:30 05/02/18 06:00 Synthroid PO 125 mcg DAILY@0630 VIRGIL Administration Loratadine 10 mg 05/02/18 09:00 Claritin PO DAILY VIRGIL Meclizine HCl 25 mg 05/01/18 18:28 Antivert PO BID PRN Vertigo Melatonin 3 mg 05/01/18 21:00 05/01/18 21:24 Melatonin PO 3 mg HS VIRGIL Administration Multivitamins 1 each 05/02/18 09:00 Theragran PO DAILY VIRGIL Naloxone HCl 0.2 mg 05/01/18 17:11 Narcan IV Q2M PRN Opioid Reversal Naproxen 250 mg 05/01/18 21:00 05/01/18 20:15 Naprosyn PO 250 mg BID VIRGIL Administration Adderal 10mg 10 mg 05/02/18 09:00 PO BID@0900,1600 VIRGIL Pantoprazole Sodium 40 mg 05/01/18 21:00 05/01/18 20:16 Protonix PO 40 mg HS VIRGIL Administration Intake and Output 05/01/18 05/02/18 05/02/18 22:59 06:59 14:59 Other: # Voids 1 1 Weight 79.2 kg 05/01/18 13:40 05/01/18 13:40 EKG Interpretations (text) Sinus rhythm Assessment and Plan (1) Vertigo Current Visit: Yes Status: Acute Code(s): R42 - DIZZINESS AND GIDDINESS SNOMED Code(s): 704780157 (2) Palpitations Current Visit: Yes Status: Acute Code(s): R00.2 - PALPITATIONS SNOMED Code (s): 58580880 Plan: This patient is mainly admitted with complaints of vertigo and also intermittent palpitations. No arrhythmias are detected so far. She is waiting to have neurological evaluation. From Cardec standpoint, I'm going to get an echocardiogram. We'll continue to monitor for any arrhythmias. If no arrhythmias are detected, patient could be discharged home. Further cardiac monitoring can be done as an outpatient DCG.
[2018-05-02] MEDS: CHOLECALCIFEROL 1,000 UNIT TAB PO SCH (09:08)
[2018-05-02] MEDS: ENOXAPARIN 40 MG/0.4 ML SYRINGE SQ SCH (09:09)
[2018-05-02] MEDS: ADDERAL PO SCH ×2 (09:09→17:37)
[2018-05-02] MEDS: NAPROXEN 250 MG TAB PO SCH ×2 (09:09→22:49)
[2018-05-02] MEDS: MULTIVITAMINS, THERA 1 EACH TAB PO SCH (09:09)
[2018-05-02] MEDS: LORATADINE 10 MG TAB PO SCH (09:09)
--- NOTE | 2018-05-02 12:06 | ECHOF ---
Referral Reason:palpitations, dizziness MEASUREMENTS -------- HEIGHT: 157.5 cm WEIGHT: 78.9 kg BP: 97/53 RVIDd: 2.9 cm (< 3.3) IVSd: 1.1 cm (0.6 - 1.1) LVIDd: 3.8 cm (3.9 - 5.3) LVPWd: 1.2 cm (0.6 - 1.1) IVSs: 1.6 cm LVIDs: 2.9 cm LVPWs: 1.6 cm LA Diam: 3.1 cm (2.7 - 3.8) LAESV Index (A-L): 18.84 ml/m Ao Diam: 3.6 cm (2.0 - 3.7) AV Cusp: 2.1 cm (1.5 - 2.6) MV EXCURSION: 10.412 mm (> 18.000) MV EF SLOPE: 40 mm/s (70 - 150) EPSS: 1.0 cm MV E Ross: 0.73 m/s MV DecT: 412 ms MV A Ross: 1.04 m/s MV E/A Ratio: 0.70 RAP: 5.00 mmHg RVSP: 24.76 mmHg FINDINGS -------- Sinus rhythm. This was a technically good study. The left ventricular size is normal. There is borderline concentric left ventricular hypertrophy. Overall left ventricular systolic function is normal with, an EF between 60 - 65 %. The right ventricle is normal in size. Normal LA size by volume 22+/-6 ml/m2. The right atrium is normal in size. The aortic valve is trileaflet and appears structurally normal. There is mild aortic regurgitation. Mild mitral regurgitation is present. Mild tricuspid regurgitation present. Right ventricular systolic pressure is normal at < 35 mmHg. Trace/mild (physiologic) pulmonic regurgitation. The aortic root size is normal. Normal inferior vena cava with normal inspiratory collapse consistent with estimated right atrial pre ssure of 5 mmHg. There is no pericardial effusion. CONCLUSIONS -------- 1. Sinus rhythm. 2. This was a technically good study. 3. The left ventricular size is normal. 4. There is borderline concentric left ventricular hypertrophy. 5. Overall left ventricular systolic function is normal with, an EF between 60 - 65 %. 6. The right ventricle is normal in size. 7. Normal LA size by volume 22+/-6 ml/m2. 8. The right atrium is normal in size. 9. The aortic valve is trileaflet and appears structurally normal. 10. There is mild aortic regurgitation. 11. Mild mitral regurgitation is present. 12. Mild tricuspid regurgitation present. 13. Right ventricular systolic pressure is normal at < 35 mmHg. 14. Trace/mild (physiologic) pulmonic regurgitation. 15. The aortic root size is normal. 16. Normal inferior vena cava with normal inspiratory collapse consistent with estimated right atrial pressure of 5 mmHg. 17. There is no pericardial effusion. [employer] CONVERTER OPERATOR: Nell Murillo RDCS
--- NOTE | 2018-05-02 16:34 | P.CNNES ---
History of Present Illness Consult date: 05/02/18 Requesting physician: Guera Kelley Reason for Consult: intractable dizziness History of Present Illness: patient is a pleasant 63-year-old female who is being evaluated by the neurology service on 05/02/2018 per the request of Dr. Kelley for intractable dizziness.patient states she has been having dizzy spells for quite a few years. She states she also has trouble with balance and has been falling lately. Patient states she is seen ear nose and throat physician in the past and was told it may be related to sinus problems. She also saw few other physicians who thought it may be anxiety related or benign paroxysmal positional vertigo. She denies ever having MRI of the brain. She was given meclizine which she states is making her too drowsy. Patient states she has been having some low back pain as well. She was at her primary care physician' s office and was given a prescription to get x-rays of the lumbar spine. While on her way to the hospital to have this done, she states she became extremely dizzy and was having spinning sensations. She denies any lateralizing weakness. She denies speech or swallow difficulty. Vital signs on admission were temperature 98.6, pulse rate 117, respiratory rate 20, on pressure 156/81, and oxygen saturation 99% on room air. Laboratory workup on admission was essentially negative. At the time of my evaluation, patient's resting comfortably in bed and appears to be in no acute distress. Review of Systems REVIEW OF SYSTEMS: Otherwise unremarkable and noncontributory. Past Medical History Past Medical History: GERD/Reflux, Thyroid Disorder Additional Past Medical History / Comment(s): seasonal allergies, fx toe rt foot ,. faell february 2018 facial bruising,add, hx crushing injury lt tibia(sx-plate screws), History of Any Multi-Drug Resistant Organisms: None Reported Past Surgical History: Adenoidectomy, Section, Orthopedic Surgery, Tonsillectomy Additional Past Surgical History / Comment(s): lt tibia plate/screws, rt rotator cuff sx , rt shoulder replacment, x3 c-sections, ezekiel lumpectomies-benign , egd w/ dilation, colonoscopy. Past Anesthesia/Blood Transfusion Reactions: No Reported Reaction Smoking Status: Never smoker - Past Family History Mother Family Medical History: CVA/TIA Additional Family Medical History / Comment(s): aaa, sepsis Father Family Medical History: Hypertension Additional Family Medical History / Comment(s): djd Medications and Allergies Home Medications Medication Instructions Recorded Confirmed Type Dextroamphetamine/Amphetamine 10 mg PO BID 10/18/16 05/01/18 History [Adderall] Levothyroxine Sodium [Synthroid] 125 mcg PO DAILY 10/18/16 05/01/18 History Omeprazole [PriLOSEC] 40 mg PO HS 10/18/16 05/01/18 History Cholecalciferol [Vitamin D3] 5,000 unit PO DAILY 05/01/18 05/01/18 History Fexofenadine HCl [Leelee Allergy] 180 mg PO DAILY 05/01/18 05/01/18 History Multivit-Min/Iron/Folic/Lutein 1 tab PO DAILY 05/01/18 05/01/18 History [Centrum Silver Women Tablet] Naproxen Sodium [Aleve] 220 mg PO BID 05/01/18 05/01/18 History Allergies Allergy/AdvReac Type Severity Reaction Status Date / Time codeine Allergy Itching Verified 05/01/18 14:05 Physical Examination - Vital Signs Vital Signs: Vital Signs Temp Pulse Pulse Resp BP BP Pulse Ox 05/02/18 12:00 85 18 05/02/18 11:35 98.1 F 85 18 109/72 97 05/02/18 07:10 98.2 F 74 18 105/63 97 05/02/18 03:50 18 05/02/18 03:25 97.8 F 74 16 106/63 97 05/02/18 00:00 97.9 F 80 18 97/64 94 L 05/01/18 23:59 18 05/01/18 20:00 18 05/01/18 19:00 97.8 F 82 18 131/82 96 05/01/18 18:00 84 18 132/73 98 05/01/18 17:00 82 18 142/70 98 Intake and Output 05/02/18 05/02/18 05/02/18 06:59 14:59 22:59 Intake Total 340 Balance 340 Intake: Oral 240 Other 100 Other: Voiding Method Toilet # Voids 1 PHYSICAL EXAM: GENERAL APPEARANCE: Patient is a well-developed, female who appears to be in no acute distress. HEENT: Normocephalic, atraumatic, no facial asymmetry is seen. Neck is supple with no masses felt. CARDIOVASCULAR: Regular rate and rhythm. ABDOMEN: Nontender, nondistended. EXTREMITIES: Show no edema or clubbing. NEUROLOGICAL EXAM:patient is awake, alert, and oriented 3. Speech and language are normal. Strength is full in all 4 extremities. Sensory exam to light touch is normal in all 4 extremities. No facial asymmetry is seen on cranial nerve testing. No tremors or seizure-like activity noted. Results - Laboratory Findings CBC and BMP: 05/01/18 13:40 05/01/18 13:40 Abnormal Lab Findings: Abnormal Labs 05/01/18 05/01/18 13:40 13:40 Glucose 100 H Ur Leukocyte Esterase Small H Urine Bacteria Rare H Assessment and Plan Plan: Impression: 1. Dizziness/vertigo 2. Palpitations 3. Seasonal ALLERGIES/chronic sinusitis 4. Hypothyroid Recommendations:Patient reports history of dizziness/vertigo for many years. Patient now reports she is having episodes of feeling off balance and she has been having falls. This is concerning for possible cerebellar involvement. I will order an MRI of the brain if shoulder hardware is compatible with MRI machine. This is not an acute problem for patient. She's been having dizziness and vertigo for many years. Further workup can be done as an outpatient. She will need VAT testing and tilt table which can be done in the office. CT of the brain was negative for any acute process. Patient was seen by cardiology and cleared from cardiology standpoint. I recommend meclizine 12.5 mg twice a day [id number]. Patient is stable from a neurological standpoint for discharge if MRI is unremarkable. I will continue to follow with you. Further recommendations to follow. Thank you for allowing me to participate in the care of your patient. Feel free to call with any questions or concerns. I performed an examination of the patient and discussed the management with the PUBLIC POLICY PROFESSOR. I have reviewed the PUBLIC POLICY PROFESSOR notes and agree with the findings and plan of care.
[2018-05-02] MEDS: SODIUM CHLORIDE 0.9% 1,000 ML IV SCH (17:37)
--- NOTE | 2018-05-02 18:54 | MR ---
EXAMINATION TYPE: MR brain wo con DATE OF EXAM: 05/02/2018 COMPARISON: None HISTORY: dizziness/TIA Standard multiplanar, multisequence MRI departmental protocol Multiplanar, multisequence images of the brain were acquired. Diffusion weighted imaging was performe d. FINDINGS: Ventricles have normal size. There is no mass effect nor midline shift. There is no sign of intracranial hemorrhage. [place]-white matter structures have fairly normal signal pattern. There is no evidence of cerebral edema. The brainstem is intact. Sella turcica appears normal. Corpus callosum a ppears normal. There is no evidence of cortical infarct. IMPRESSION: Brain appears normal for age.
--- NOTE | 2018-05-02 20:11 | P.PN ---
Subjective Progress Note Date: 05/02/18 The patient seen and examined at the bedside. The patient notes that she is doing well and has not had any further episodes of dizziness. She denied any blurred vision, chest pain, SOB, nausea, vomiting, weakness, numbness, or tingling. Objective - Vital Signs Vital signs: Vital Signs Temp 97.9 F 05/02/18 16:19 Pulse 84 05/02/18 16:19 Resp 18 05/02/18 16:19 BP 126/79 05/02/18 16:19 Pulse Ox 95 05/02/18 16:19 Intake & Output 05/02/18 05/02/18 05/03/18 06:59 18:59 06:59 Intake Total 340 Balance 340 Weight 79.2 kg Intake: Oral 240 Other 100 Other: Voiding Method Toilet # Voids 1 - Exam General: Non-toxic, in no acute distress HEENT: NC/AT, anicteric sclerae, moist conjunctiva, no lid-lag, PERRLA, oropharynx clear, no erythema, exudates Cardiovascular: S1/S2 wnl, no murmurs, rubs, or gallops Lungs: Clear to auscultation, normal respiratory effort, no accessory muscle use Abdominal: Soft, nontender, non-distended, no guarding, rebound, or rigidity, normoactive bowel sounds Skin: Warm, dry Extremities: No edema or contractures Psychiatric: Alert and oriented to person, place and time, appropriate affect, Intact judgment Neuro: CN II-XII grossly intact, no focal motor deficits - Labs CBC & Chem 7: 05/01/18 13:40 05/01/18 13:40 Assessment and Plan Plan: Dizziness, vertigo, possibly BPPV vs mennier's vs brainstem lesion -Neurology recs appreciated. Will await MRI results. -C/w Meclizine -Neuro checks -Fall, seizure precautions Hypothyroidism -Continue with home dose of levothyroxine DVT//GI prophylaxis -Lovenox subcu - No indication for GI prophylaxis The patient is placed in observation with an anticipated less than 2 per night stay for evaluation of dizziness CODE STATUS:Full Discussed with: Patient Anticipated discharge date: 05/03/[address]: Home A total of 60 minutes was spent on the care of this complex patient more than 50 % of the time was spent in counseling and care coordination.
[2018-05-02] MEDS: MELATONIN 3 MG TABLET PO SCH (22:49)
[2018-05-02] MEDS: PANTOPRAZOLE 40 MG TABLET PO SCH (22:49)
[2018-05-03] MEDS: LEVOTHYROXINE 125 MCG TAB PO SCH (05:28)
[2018-05-03 05:55] VITALS: BP 115/67; PULSE 71; RESP 16; TEMP 97
[2018-05-03] MEDS: ADDERAL PO SCH (09:01)
[2018-05-03] MEDS: ENOXAPARIN 40 MG/0.4 ML SYRINGE SQ SCH (09:03)
[2018-05-03] MEDS: MULTIVITAMINS, THERA 1 EACH TAB PO SCH (09:05)
[2018-05-03] MEDS: CHOLECALCIFEROL 1,000 UNIT TAB PO SCH (09:05)
[2018-05-03] MEDS: LORATADINE 10 MG TAB PO SCH (09:05)
[2018-05-03] MEDS: NAPROXEN 250 MG TAB PO SCH (09:07)
--- NOTE | 2018-05-03 15:11 | P.DS ---
Providers Date of admission: 05/01/18 17:11 Expected date of discharge: 05/03/18 Attending physician: Guera Kelley MD Consults: 05/01/18 17:13 Consult Physician Routine Consulting Provider: Kurt Gamble Consult Reason/Comments: Intractable dizziness Do you want consulting provider notified?: Yes 05/01/18 17:14 Consult Physician Routine Consulting Provider: Ashish Tafoya Consult Reason/Comments: Palpitations Do you want consulting provider notified?: Yes Primary care physician: [facility] Course: Patient is a 63-year-old female with a past medical history hypothyroidism, GERD , and osteoarthritis who presented to the ED with a chief complaint of dizziness which had been ongoing for several years, described as a spinning sensation associated with certain movements and occasionally with palpitations. Head CT in the ED was negative. The patient was admitted for further evaluation under observation. Cardiology was consulted and recommended an echocardiogram which showed LVEF between 60 and 65% and borderline LVH with RVSP less than 35 mmHg. Neurology was consulted and recommended brain MRI which was negative for acute abnormalities. The recommended for the patient to be on meclizine 12.5 mg twice a day around the clock. The patient did not have any further episodes of dizziness while inpatient. She is presently ready and stable for discharge home. Physical Examination General: Awake, alert, in no acute distress HEENT: NC/AT, anicteric sclerae, moist conjunctiva, no lid-lag, PERRLA, oropharynx clear, no erythema, exudates Cardiovascular: S1/S2 wnl, no murmurs, rubs, or gallops Lungs: Clear to auscultation, normal respiratory effort, no accessory muscle use Abdominal: Soft, nontender, non-distended, no guarding, rebound, or rigidity, normoactive bowel sounds Skin: Warm, dry Extremities: No edema or contractures Psychiatric: Alert and oriented to person, place and time, appropriate affect, Intact judgment Neuro: CN II-XI grossly intact, sensation to light touch grossly present throughout, no focal sensory deficits Discharge diagnosis: Dizziness, unspecified; Hypothyroidism A total of 45 minutes of time were spent preparing this complex discharge summary. Pertinent Studies: Brain MRI: Appears normal for age Echocardiogram: LVEF between 60 and 65%, borderline LVH, RV S/P less than 35 mmHg Patient Condition at Discharge: Stable Plan - Discharge Summary Discharge Rx Participant: Yes New Discharge Prescriptions: New Meclizine [Antivert] 25 mg PO BID PRN #60 tab PRN Reason: Vertigo Continue Omeprazole [PriLOSEC] 40 mg PO HS Levothyroxine Sodium [Synthroid] 125 mcg PO DAILY Dextroamphetamine/Amphetamine [Adderall] 10 mg PO BID Cholecalciferol [Vitamin D3] 5,000 unit PO DAILY Naproxen Sodium [Aleve] 220 mg PO BID Multivit-Min/Iron/Folic/Lutein [Centrum Silver Women Tablet] 1 tab PO DAILY Fexofenadine HCl [Leelee Allergy] 180 mg PO DAILY Discharge Medication List Dextroamphetamine/Amphetamine [Adderall] 10 mg PO BID 10/18/16 [History] Levothyroxine Sodium [Synthroid] 125 mcg PO DAILY 10/18/16 [History] Omeprazole [PriLOSEC] 40 mg PO HS 10/18/16 [History] Cholecalciferol [Vitamin D3] 5,000 unit PO DAILY 05/01/18 [History] Fexofenadine HCl [Leelee Allergy] 180 mg PO DAILY 05/01/18 [History] Multivit-Min/Iron/Folic/Lutein [Centrum Silver Women Tablet] 1 tab PO DAILY [History] Naproxen Sodium [Aleve] 220 mg PO BID 05/01/18 [History] Meclizine [Antivert] 25 mg PO BID PRN #60 tab 05/03/18 [Rx] Follow up Appointment(s)/Referral(s): Paola Bhatt DO [Primary Care Provider] - 1-2 days Patient Instructions/Handouts: Meclizine (By mouth), Vertigo (DC) Activity/Diet/Wound Care/Special Instructions: Limit activity until seen by Dr. Freeman as tolerated Discharge Disposition: HOME SELF-CARE
== END 2018-05-03 12:08 | disposition home or self-care (01) ==
LOC: EC 12:50 → 3OBS 17:11 → 5MS5E 05-02 17:46
PROVIDERS: ADMIT Internal Medicine; ATTEND Internal Medicine
DX: R42 Dizziness and giddiness (principal); R00.2 Palpitations; E03.9 Hypothyroidism, unspecified; J32.9 Chronic sinusitis, unspecified; J30.2 Other seasonal allergic rhinitis; K21.9 Gastro-esophageal reflux disease without esophagitis; F90.9 Attention-deficit hyperactivity disorder, unspecified type; M19.90 Unspecified osteoarthritis, unspecified site; M54.5 Low back pain; Z96.611 Presence of right artificial shoulder joint; Z79.1 Long term (current) use of non-steroidal anti-inflammatories (NSAID); Z79.890 Hormone replacement therapy; Z79.899 Other long term (current) drug therapy; Z88.5 Allergy status to narcotic agent; Z91.81 History of falling; Z82.49 Family history of ischemic heart disease and other diseases of the circulatory system; Z83.1 Family history of other infectious and parasitic diseases
CPT/HCPCS: 99285; 36415; 93005; 93306; 80053; 84443; 82550; 82553; 83735; 84484; 85025; 81001; 71046; 70450; 70551; G0378 ×3

== ENCOUNTER → 2018-05-03 | Outpatient (CLI) | payer MEDICARE, OTHER ==
--- NOTE | 2018-05-04 10:15 | XR ---
EXAM TYPE: LUMBAR SPINE X RAY SERIES COMPARISON: NONE HISTORY: Chronic back pain TECHNIQUE: 3 views are submitted. FINDINGS: Alignment is anatomic. The pedicles are intact. The transverse processes are intact. There is no s pondylolysis or spondylolisthesis. Diffuse osteopenia noted. There are surgical clips in the right u pper quadrant abdomen. Vacuum disc and severe degenerative disc disease L5-S1. Mild to moderate degen erative disc disease at levels L1-L4. Facet arthropathy noted at L4-5 and L5-S1. IMPRESSION: 1. Multilevel degenerative disc disease with severe changes L5-S1. Consider MRI follow-up.
--- NOTE | 2018-05-04 10:15 | XR ---
EXAMINATION TYPE: XR thoracic spine complete DATE OF EXAM: 05/03/2018 COMPARISON: NONE HISTORY: Pain Alignment is anatomic. There is no compression deformities. Multilevel degenerative disc disease wit h hypertrophic changes are noted. Slight curvature the spine. Interstitial changes within the lungs m ay BE technical or related to chronic interstitial lung disease. IMPRESSION: 1. Multilevel moderate degenerative disc disease.
== END | disposition home or self-care (01) ==
LOC: RADXRMAIN 12:12
PROVIDERS: ATTEND Family Medicine
DX: M51.34 Other intervertebral disc degeneration, thoracic region (principal); M51.37 Other intervertebral disc degeneration, lumbosacral region
CPT/HCPCS: 72072; 72100

== ENCOUNTER → 2018-10-29 | Outpatient (CLI) | payer MEDICARE ==
[2018-10-29 08:35] VITALS: BP 123/85; PULSE 99; RESP 18; TEMP 96.5; BMI 31.8
--- NOTE | 2018-10-29 09:23 | P.HPOB ---
History of Present Illness H&P Date: 10/29/18 Chief Complaint: The patient is here for her routine gynecologic exam and ma mmogram. This is a 63-year-old G3 PIII with an LMP of 2006. The patient is without gynecologic complaints and denies any postmenopausal bleeding. She had an abnormal Pap smear last year showing ascus with positive high-risk HPV testing on 10/08/2017. Colposcopic examination was done by Dr. Oviedo and was normal, but ECC showed low-grade DOLORES. The patient was supposed to follow up with Dr. Oviedo in 6 months to repeat the Pap smear, but she states that she did not do this. Review of Systems She has lost 2 pounds over the last year. She denies respiratory or cardiac problems. G.I.: occasional gastric reflux symptoms. She denies maltreatment. She did fall 1 last year but did not seek any treatment. : she has occasional urinary leakage and sometimes has to get to the bathroom right away or she will leak.. Past Medical History Past Medical History: GERD/Reflux, Osteoarthritis (OA), Thyroid Disorder Additional Past Medical History / Comment(s): seasonal allergies, fx toe rt foot,. fell february 2018 facial bruising. hx crushing injury lt tibia(sx-plate screws). CIS of right breast 2002. Osteopenia. 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 Positive high-risk HPV on Pap smears. History of Any Multi-Drug Resistant Organisms: None Reported Past Surgical History: Adenoidectomy, Appendectomy, Breast Surgery, Section, Orthopedic Surgery, Tonsillectomy Additional Past Surgical History / Comment(s): lt tibia plate/screws, rt rotator cuff sx , rt shoulder replacment, knee sx, 3 c-sections, ezekiel lumpectomies, egd w/ dilation, colonoscopy 2014(2nd). Past Anesthesia/Blood Transfusion Reactions: No Reported Reaction Past Psychological History: ADD/ADHD, Anxiety, Depression Additional Psychological History / Comment(s): lives alone has 2 pet dogs, drives, retired. Smoking Status: Never smoker Past Alcohol Use History: Occasional (One per month) Past Drug Use History: None Reported Additional Drug Use History / Comment(s): 2019 tried a marijuana edible for the first and only time. Additional History: She is and is not seen any. This time. She is considered disabled. - Past Family History Mother Family Medical History: CVA/TIA Additional Family Medical History / Comment(s): aaa, sepsis. Grandmother had diabetes. Father Family Medical History: Hypertension Additional Family Medical History / Comment(s): djd Son(s) Family Medical History: Cancer Additional Family Medical History / Comment(s): Colon cancer. Medications and Allergies Home Medications Medication Instructions Recorded Confirmed Type Dextroamphetamine/Amphetamine 10 mg PO BID 10/18/16 10/29/18 History [Adderall] Levothyroxine Sodium [Synthroid] 125 mcg PO DAILY 10/18/16 10/29/18 History Cholecalciferol [Vitamin D3] 5,000 unit PO DAILY 05/01/18 10/29/18 History Fexofenadine HCl [Leelee Allergy] 180 mg PO DAILY PRN 05/01/18 10/29/18 History Multivit-Min/Iron/Folic/Lutein 1 tab PO DAILY 05/01/18 10/29/18 History [Centrum Silver Women Tablet] Naproxen Sodium [Aleve] 220 mg PO BID PRN 05/01/18 10/29/18 History Allergies Allergy/AdvReac Type Severity Reaction Status Date / Time codeine Allergy Itching Verified 10/29/18 08:26 Exam Vital Signs Temp Pulse Resp BP 10/29/18 08:30 96.5 F L 99 18 123/85 Intake and Output 10/28/18 10/29/18 10/29/18 22:59 06:59 14:59 Other: Weight 78.925 kg Height 5'2", weight 174 pounds, BMI 31.8. This is a well-developed well-nourished white female who is alert and oriented times 3 in no acute distress. HEENT: Within normal limits. NECK: Supple without mass or thyromegaly. CHEST AND LUNGS: Clear to auscultation. HEART: Regular rate and rhythm. BREASTS: Are without mass or discharge. AXILLARY EXAM: Negative for adenopathy. BACK: Negative for CVA tenderness. ABDOMEN: Soft, nontender, without palpable masses. PELVIC EXAM: Normal external genitalia with mild to moderate atrophy. Cervix and vagina appear normal with mild to moderate atrophy. The cervix is somewhat stenotic secondary to atrophy. There is no unusual discharge. There is no evidence of prolapse at rest. With Valsalva and cough there is mild urethral mobility. No urinary leakage was demonstrated. The uterus is midposition, nongravid size and nontender. There are no palpable adnexal masses or tendern ess. RECTAL EXAM: rectovaginal exam is negative for mass or tenderness and is negative for occult blood. EXTREMITIES: Nontender. IMPRESSION: 1. 63-year-old menopausal female with unremarkable gynecologic exam. 2. Mild mixed urinary incontinence with mild urethral mobility and no evidence of a cystocele. 3. History of previous ascus Pap smear and positive high-risk HPV with low- grade DOLORES on ECC on 10/31/17. The patient did not have a 6 month follow-up Pap smear as recommended by Dr. Oviedo. 4. Osteopenia PLAN: 1. Pap smear with high-risk HPV testing was done today. 2. Self breast awareness was discussed with the patient. 3. Screening mammogram will be done today. 4. Osteoporosis prevention was discussed. I have stressed the importance of adequate calcium, vitamin D and regular exercise. Recommended amounts of calcium and vitamin D were also discussed. The patient is having a bone density test on today. 5. The patient did not get a flu shot this past fall and is declining regular flu shots. I recommended that she reconsider this decision. 6. Kegal exercises and timed voids were recommended. Instructions were given the patient on these. She was instructed to call if she is having problems with urinary incontinence we can consider referral for this.
--- NOTE | 2018-10-29 10:39 | BD ---
EXAMINATION TYPE: Axial Bone Density DATE OF EXAM: 10/29/2018 COMPARISON: NONE CLINICAL HISTORY: Height: 62 Weight: 173.7 FRAX RISK QUESTIONS: Alcohol (3 or more units per day): no Family History (Parent hip fracture): no Glucocorticoids (More than 3mos): no (Ex: prednisone, prednisolone, methylprednisolone, dexamethasone, and hydrocortisone). History of Fracture in Adulthood: yes Secondary Osteoporosis: 1. Type 1 Diabetes: no 2. Hyperthyroidism: no 3. Menopause before 45: no 4. Malnutrition: no 5. Chronic liver disease: no Rheumatoid Arthritis: no Current Tobacco Use: no RISK FACTORS HISTORY OF: Family History of Osteoporosis: yes Active: yes Diet low in dairy products/other sources of calcium: no Postmenopausal woman: age 52 Lost more than 2 inches in height since high school: no MEDICATIONS: otc reflux meds( as needed), adderoll Thyroid Medications: levothyroxine How Lon + years Additional History: EXAM MEASUREMENTS: Bone mineral densitometry was performed using the [employer] System. Bone mineral density as measured about the Lumbar spine is: ----- L1-L4(G/cm2): 0.863 T Score Values are as follows: ----- L2: -3.1 ----- L3: -2.9 ----- L4: -2.4 ----- L1-L4: -2.6 Bone mineral density has: decreased -7.9 % since study of: 07.27.2015 Bone mineral density about the R hip (g/cm2): 0.718 Bone mineral density about the L hip (g/cm2): 0.733 T Score values are as follows: -----R Neck: -2.3 -----L Neck: -2.2 -----R Total: -2.1 -----L Total: -2.0 Bone mineral density has: decreased -2.2 % since study of: 07.27.2015 IMPRESSION: 1. Osteoporosis lumbar spine. 2. Osteopenia bilateral femora. NOTE: T-SCORE=SD OF THE YOUNG ADULT MEAN.
--- NOTE | 2018-10-30 10:53 | MM ---
Reason for exam: screening (asymptomatic). Last mammogram was performed 1 year and 1 month ago. History: Patient is postmenopausal and has history of breast cancer at age 48. Excisional biopsy of the left breast, December 03, 2006. Benign US left CoreBiopsy of the left breast, May 31, 2006. Lumpectomy of the right breast, April 2003. Malignant stereotactic core biopsy of the right breast, April 08, 2003. Physical Findings: A clinical breast exam by your physician is recommended on an annual basis and results should be correlated with mammographic findings. MG 3D Screening Mammo W/Cad Bilateral CC and MLO view(s) were taken. Prior study comparison: October 08, 2017, bilateral MG 3d screening mammo w/cad. October 18, 2016, left breast MG 3d work up w/cad LT. The breast tissue is heterogeneously dense. This may lower the sensitivity of mammography. No suspicious abnormality. Post biopsy change on the right. ASSESSMENT: Benign, BI-RAD 2 RECOMMENDATION: Routine screening mammogram of both breasts in 1 year.
== END | disposition home or self-care (01) ==
LOC: WWCWWP 08:12
PROVIDERS: ATTEND Obstetrics & Gynecology
DX: Z12.31 Encounter for screening mammogram for malignant neoplasm of breast (principal); M85.89 Other specified disorders of bone density and structure, multiple sites; Z78.0 Asymptomatic menopausal state
CPT/HCPCS: 77063; 77067; 77080

== ENCOUNTER → 2019-04-07 | Outpatient (CLI) | payer MEDICARE, OTHER ==
--- NOTE | 2019-04-07 11:54 | MR ---
EXAMINATION TYPE: MR lumbar spine wo con DATE OF EXAM: 04/07/2019 COMPARISON: NONE HISTORY: Low back pain into rt leg TECHNIQUE: T1 and T2 axial and sagittal images of the lumbar spine are submitted. FINDINGS: There is no abnormal signal seen within the visualized spinal cord or paraspinal soft tissu es. At L1-2 there is degenerative disc disease and broad-based central disc bulging but no canal stenosis . Facet arthropathy noted. Neural foramina patent. At L2-3 there is degenerative disc disease and mild broad-based central disc bulging but no canal inez nosis or disc herniation. Hypertrophic change of the facets. No foraminal encroachment or canal steno sis. At L3-4 there is a central and left paracentral disc bulging with mild effacement of thecal sac. No c anal stenosis or foraminal encroachment. Mild hypertrophic changes of the facets. At L4-5 there is facet arthropathy and ligamentum flavum hypertrophy but no disc herniation, canal s tenosis, or foraminal encroachment. At L5-S1 there is severe degenerative disc disease. There is broad-based central disc bulging with mi ld bilateral foraminal encroachment. Discogenic marrow changes are seen. No Canal stenosis. IMPRESSION: 1. Multilevel degenerative disc disease most marked at L4-L5 with mild bilateral foraminal encroachme nt. 2. Multilevel disc bulging with no canal stenosis or discrete herniation.
== END | disposition home or self-care (01) ==
LOC: RADMRIMAIN 10:00
PROVIDERS: ATTEND Nurse Practitioner Family
DX: M51.16 Intervertebral disc disorders with radiculopathy, lumbar region (principal); M51.17 Intervertebral disc disorders with radiculopathy, lumbosacral region
CPT/HCPCS: 72148

== ENCOUNTER → 2019-07-22 | Outpatient (CLI) | payer MEDICARE, OTHER ==
--- NOTE | 2019-07-22 09:59 | US ---
EXAMINATION TYPE: US duplex aorta DATE OF EXAM: 07/22/2019 COMPARISON: US, MR lumbar spine CLINICAL HISTORY: I71.3 abdominal aortic aneurysm, ruptured. Maternal family history of AAA. EXAM MEASUREMENTS: Abdominal Aorta: Proximal: 2.2cm A/P Mid: 2.0cm A/P Distal: 1.9cm Transverse Bifurcation: Right AISHA = 1.5cm Transverse; Left AISHA = 1.4cm Transverse. Aorta color flow patency and PW Doppler are documented. Intimal wall thickening is noted mid and dist ally. IMPRESSION: Atherosclerosis of the abdominal aorta without sonographic evidence of aortic aneurysm in the visualized portions of the abdominal aorta.
== END | disposition home or self-care (01) ==
LOC: RADUSWWP 08:59
PROVIDERS: ATTEND Family Medicine
DX: I70.0 Atherosclerosis of aorta (principal); I71.3 Abdominal aortic aneurysm, ruptured
CPT/HCPCS: 93979

== ENCOUNTER → 2020-03-02 | Outpatient (CLI) | payer MEDICARE ==
[2020-03-02 09:47] VITALS: BP 114/74; PULSE 79; RESP 20; TEMP 98.3
--- NOTE | 2020-03-02 11:18 | P.HPOB ---
History of Present Illness H&P Date: 03/02/20 Chief Complaint: The patient is here for her routine gynecologic exam and ma mmogram. This is a 65-year-old with an LMP of 2007. The patient is without gynecologic complaints and denies any postmenopausal bleeding. The patient has a history of abnormal Pap smears. On 10/08/2017 she had a Pap smear showing ASCUS with positive high-risk HPV testing. Colposcopic examination was done by Dr. Dr. Oviedo and was normal, but ECC showed low-grade DOLORES. Pap smear on 10/29/2018 showed ASCUS with positive high-risk HPV testing. The patient was referred back to Dr. Oviedo for colposcopic examination but did not have the colposcopic testing due to financial reasons. She states she has not been sexually active since she was last here in October 2018. Review of Systems The patient's weight has been stable. She denies respiratory or cardiac problems. GI: Occasional gastric reflux which has improved with omeprazole. Past Medical History Past Medical History: GERD/Reflux, Osteoarthritis (OA), Thyroid Disorder Additional Past Medical History / Comment(s): hypothyroid. seasonal allergies, fx toe rt foot. hx crushing injury lt tibia(sx-plate screws). CIS of right breas t 2002. Osteopenia. 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 Positive high-risk HPV on Pap smears. History of Any Multi-Drug Resistant Organisms: None Reported Past Surgical History: Adenoidectomy, Appendectomy, Breast Surgery, Section, Orthopedic Surgery, Tonsillectomy Additional Past Surgical History / Comment(s): lt tibia plate/screws, rt rotator cuff sx , rt shoulder replacment, knee sx, 3 c-sections, ezekiel lumpectomies, egd w/ dilation, colonoscopy 2014(2nd). Past Anesthesia/Blood Transfusion Reactions: No Reported Reaction Past Psychological History: ADD/ADHD, Anxiety, Depression Additional Psychological History / Comment(s): lives alone has 2 pet dogs, drives, retired. Smoking Status: Never smoker Past Alcohol Use History: Occasional (0-3 per month) Past Drug Use History: None Reported Additional Drug Use History / Comment(s): 2019 tried a marijuana edible for the first and only time. Additional History: The patient is single and is not seeing anybody at this time. The patient is retired. - Past Family History Mother Family Medical History: CVA/TIA Additional Family Medical History / Comment(s): aaa, sepsis. Grandmother had diabetes. Father Family Medical History: Hypertension Additional Family Medical History / Comment(s): djd Son(s) Family Medical History: Cancer Additional Family Medical History / Comment(s): Colon cancer. Medications and Allergies Home Medications Medication Instructions Recorded Confirmed Type Dextroamphetamine/Amphetamine 15 mg PO QAM 10/18/16 03/02/20 History [Adderall] Levothyroxine Sodium [Synthroid] 125 mcg PO QAM 10/18/16 03/02/20 History Cholecalciferol [Vitamin D3 (25 5,000 unit PO DAILY 05/01/18 03/02/20 History Mcg = 1000 Iu)] Multivit-Min/Iron/Folic/Lutein 1 tab PO DAILY 05/01/18 03/02/20 History [Centrum Silver Women Tablet] Naproxen Sodium [Aleve] 220 mg PO BID PRN 05/01/18 03/02/20 History Mecobalamin [B-12] 5,000 mcg PO DAILY 03/02/20 03/02/20 History Allergies Allergy/AdvReac Type Severity Reaction Status Date / Time codeine Allergy Itching Verified 03/02/20 09:39 Exam Vital Signs Temp Pulse Resp BP Pulse Ox 03/02/20 09:42 98.3 F 79 20 114/74 96 Intake and Output 03/01/20 03/02/20 03/02/20 22:59 06:59 14:59 Other: Weight 78.925 kg Height 5 feet 2 inches, weight 174 pounds, BMI 31.8. This is a well-developed well-nourished white female who is alert and oriented times 3 in no acute distress. HEENT: Within normal limits. NECK: Supple without mass or thyromegaly. CHEST AND LUNGS: Clear to auscultation. HEART: Regular rate and rhythm. BREASTS: Are without mass or discharge. AXILLARY EXAM: Negative for adenopathy. BACK: Negative for CVA tenderness. ABDOMEN: Soft, nontender, without palpable masses. PELVIC EXAM: Normal external genitalia with mild atrophy. Cervix and vagina appear normal with mild to moderate atrophy. There is no unusual discharge. There is no evidence of prolapse. The uterus is midposition, nongravid size and nontender. There are no palpable adnexal masses or tenderness. RECTAL EXAM: Rectovaginal exam is negative for mass or tenderness and is negative for occult blood. EXTREMITIES: Nontender. IMPRESSION: 1. 65-year-old menopausal female with normal gynecologic exam. 2. History of ASCUS Pap smear with positive high-risk HPV testing. Previous negative colposcopic examination in September 2017. The patient did not have repeat colposcopic examination last year as recommended. 3. History of osteoporosis and the patient has declined medical treatment for this in the past. PLAN: 1. Pap smear with high-risk HPV testing was performed. 2. Self breast awareness was discussed with the patient. 3. Screening mammogram will be done today. 4. Osteoporosis management was discussed. I have stressed the importance of adequate calcium, vitamin D and regular exercise. Recommended amounts of calcium and vitamin D were also discussed. She is again declining medical treatment for osteoporosis. She will call if she changes her mind about this. I have stressed the importance of avoiding falling. 5. STD prevention was discussed with the patient. I have stressed the importance of limiting sexual partners. 6. She is due for a colonoscopy since it has been about 5 years since her last one. She states she will speak with her PCP about this to have them help her arrange for this. 7. She was advised to return in one year for her annual well woman exam.
--- NOTE | 2020-03-03 07:32 | MM ---
Reason for exam: screening (asymptomatic). Last mammogram was performed 1 year and 4 months ago. History: Patient is postmenopausal and has history of breast cancer at age 48. Excisional biopsy of the left breast, December 03, 2006. Benign US left CoreBiopsy of the left breast, May 31, 2006. Lumpectomy of the right breast, April 2003. Malignant stereotactic core biopsy of the right breast, April 08, 2003. Physical Findings: A clinical breast exam by your physician is recommended on an annual basis and results should be correlated with mammographic findings. MG 3D Screening Mammo W/Cad Bilateral CC and MLO view(s) were taken. Prior study comparison: October 29, 2018, bilateral MG 3d screening mammo w/cad. October 08, 2017, bilateral MG 3d screening mammo w/cad. The breast tissue is heterogeneously dense. This may lower the sensitivity of mammography. There are benign appearing round calcifications bilaterally. There is no discrete abnormality. ASSESSMENT: Negative, BI-RAD 1 RECOMMENDATION: Routine screening mammogram of both breasts in 1 year.
== END | disposition home or self-care (01) ==
LOC: WWCWWP 09:31
PROVIDERS: ATTEND Obstetrics & Gynecology
DX: Z12.31 Encounter for screening mammogram for malignant neoplasm of breast (principal)
CPT/HCPCS: 77063; 77067

== ENCOUNTER → 2021-07-25 | Outpatient (CLI) | payer MEDICARE ==
[2021-07-25 08:33] VITALS: BP 102/74; PULSE 82; RESP 18; TEMP 98.1
--- NOTE | 2021-07-25 10:33 | P.HPOB ---
History of Present Illness H&P Date: 07/25/21 Chief Complaint: The patient is here for her routine gynecologic exam and ma mmogram. This is a 66-year-old with an LMP of 2007. The patient is without gynecologic complaints and denies any postmenopausal bleeding. The patient has a history of abnormal Pap smears. In 2015 she had a Pap smear showing ASCUS with positive high-risk HPV testing. The patient did not undergo colposcopic examination as recommended. Pap smear done in September 2016 showed ASCUS with positive high-risk HPV testing and colposcopic examination was done in October [address] Oviedo. The colposcopy was normal with an ECC showing low-grade DOLORES. Pap smear done in October 2018 showed ASCUS with positive high-risk HPV testing and colposcopic examination was recommended. The patient did not have this done as recommended. Pap smear was repeated in February 2020 and was negative with a positive high-risk HPV testing. HPV types 16 and 18 were both negative. Review of Systems She has gained about 8 pounds over the past year. She denies respiratory or cardiac problems. GI: Occasional constipation. Past Medical History Past Medical History: GERD/Reflux, Osteoarthritis (OA), Thyroid Disorder Additional Past Medical History / Comment(s): hypothyroid. seasonal allergies, fx toe rt foot. hx crushing injury lt tibia(sx-plate screws). CIS of right breast 2002. Osteoporosis. 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 Positive high- risk HPV on Pap smears. History of Any Multi-Drug Resistant Organisms: None Reported Past Surgical History: Adenoidectomy, Appendectomy, Breast Surgery, Section, Orthopedic Surgery, Tonsillectomy Additional Past Surgical History / Comment(s): lt tibia plate/screws, rt rotator cuff sx , rt shoulder replacment, knee sx, 3 c-sections, ezekiel lumpectomies, egd w/ dilation, colonoscopy 2014(2nd). Past Anesthesia/Blood Transfusion Reactions: No Reported Reaction Past Psychological History: ADD/ADHD, Anxiety, Depression Additional Psychological History / Comment(s): lives alone has 2 pet dogs, drives, retired. Smoking Status: Never smoker Past Alcohol Use History: Occasional (0-3 per month) Past Drug Use History: None Reported Additional Drug Use History / Comment(s): 2019 tried a marijuana edible for the first and only time. Additional History: The patient is single and is not seeing anybody at this time. The patient is retired. - Past Family History Mother Family Medical History: CVA/TIA Additional Family Medical History / Comment(s): aaa, sepsis. Grandmother had diabetes. Father Family Medical History: Hypertension Additional Family Medical History / Comment(s): djd Son(s) Family Medical History: Cancer Additional Family Medical History / Comment(s): Colon cancer. Medications and Allergies Home Medications Medication Instructions Recorded Confirmed Type Dextroamphetamine/Amphetamine 15 mg PO QAM 10/18/16 07/25/21 History [Adderall] Levothyroxine Sodium [Synthroid] 125 mcg PO QAM 10/18/16 07/25/21 History Cholecalciferol [Vitamin D3 (25 5,000 unit PO DAILY 05/01/18 07/25/21 History Mcg = 1000 Iu)] Multivit-Min/Iron/Folic/Lutein 1 tab PO DAILY 05/01/18 07/25/21 History [Centrum Silver Women Tablet] Naproxen Sodium [Aleve] 220 mg PO BID PRN 05/01/18 07/25/21 History Mecobalamin [B-12] 5,000 mcg PO DAILY 03/02/20 07/25/21 History Ascorbic Acid [Vitamin C] 500 mg PO DAILY 07/25/21 07/25/21 History B Complex-Vit C-Vit E-Zinc [Z-Bec] 1 tab PO DAILY 07/25/21 07/25/21 History Calcium Carbonate [Calcium] 600 mg PO DAILY 07/25/21 07/25/21 History Lutein 10 mg PO DAILY 07/25/21 07/25/21 History Allergies Allergy/AdvReac Type Severity Reaction Status Date / Time codeine Allergy Itching Verified 07/25/21 08:22 Exam Vital Signs Temp Pulse Resp BP Pulse Ox 07/25/21 08:26 98.1 F 82 18 102/74 98 Intake and Output 07/24/21 07/25/21 07/25/21 22:59 06:59 14:59 Other: Weight 82.554 kg Height 5 feet 2 inches, weight 182 pounds, BMI 33.3. This is a well-developed well-nourished white female who is alert and oriented times 3 in no acute distress. HEENT: Within normal limits. NECK: Supple without mass or thyromegaly. CHEST AND LUNGS: Clear to auscultation. HEART: Regular rate and rhythm. BREASTS: Are without mass or discharge. AXILLARY EXAM: Negative for adenopathy. BACK: Negative for CVA tenderness. ABDOMEN: Soft, nontender, without palpable masses. PELVIC EXAM: Normal external genitalia with mild atrophy. Cervix and vagina appear normal mild atrophy. The cervix is somewhat stenotic secondary to atrophy. There is no unusual discharge. There is no evidence of prolapse. The uterus is midposition, nongravid size and nontender. There are no palpable adnexal masses or tenderness. RECTAL EXAM: Rectovaginal exam is negative for mass or tenderness and is negative for occult blood. EXTREMITIES: Nontender. IMPRESSION: 1. 66-year-old menopausal female with normal gynecologic exam. 2. History of abnormal Pap smears showing ASCUS with positive high-risk HPV testing. She had an negative colposcopic examination in September 2017 with low- grade changes on the ECC. The patient has refused to do a colposcopic examination as recommended following her last ASCUS Pap smear. Her last Pap smear was negative with positive high-risk HPV testing in February 2020. 3. History of osteoporosis. The patient has declined treatment. PLAN: 1. Pap smear cotest was performed. The patient understands that colposcopic examination was previously recommended, but because she has chosen not to have it done after the recommendation was made, we will plan on doing the Pap smear cotest today. 2. Self breast awareness was discussed with the patient. 3. Screening mammogram will be done today. 4. Osteoporosis management was discussed. I have stressed the importance of adequate calcium, vitamin D and regular exercise. Recommended amounts of calcium and vitamin D were also discussed. She understands that I have recommended medical treatment for the osteoporosis because of her increased risk for bone fracture. She would like to have a bone density testing done again today after 2 years since her last one. 5. She has not received a Covid vaccination. I strongly recommended that she get vaccinated for Covid. He understands there can be severe consequences if she gets Covid. She is aware of this since her sister recently from Covid. I have tried to address her concerns regarding the vaccination. She understands that the risks of getting Covid outweighs the potential risks with the vaccination. She states she will consider it. 6. I have recommended screening colonoscopy since it is been about 6 years since her last one and she has a son who had colon cancer. She can discuss this with her PCP or the doctor who did her previous colonoscopy. 7. She was advised to return in one year for her annual well woman exam.
--- NOTE | 2021-07-25 12:00 | BD ---
EXAMINATION TYPE: Axial Bone Density DATE OF EXAM: 07/25/2021 COMPARISON:2018 CLINICAL HISTORY: disorder of bone Height: 5'2 Weight: 182 FRAX RISK QUESTIONS: History of Fracture in Adulthood: y Secondary Osteoporosis: RISK FACTORS HISTORY OF: Postmenopausal woman: y MEDICATIONS: Thyroid Medications: Which medication: Synthroid How Lon years Additional Medications: Additional History: EXAM MEASUREMENTS: Bone mineral densitometry was performed using the [employer] System. Bone mineral density as measured about the Lumbar spine is: ----- L1-L4(G/cm2): 0.881 T Score Values are as follows: ----- L2: -2.8 ----- L3: -2.6 ----- L4: -2.2 ----- L1-L4: -2.5 Bone mineral density has: Increased 3.7% since study of: 10/29/2018 Bone mineral density about the R hip (g/cm2): 0.724 Bone mineral density about the L hip (g/cm2): 0.722 T Score values are as follows: -----R Neck: -2.3 -----L Neck: -2.3 -----R Total: -1.9 -----L Total: -1.9 Bone mineral density has: Increased 1.7% since study of: 10/29/2018 IMPRESSION: Osteoporosis (T Score less than -2.5). There is increased fracture risk and therapy is usually indicated based on age. Re-Screen 1-2 years. NOTE: T-SCORE=SD OF THE YOUNG ADULT MEAN.
--- NOTE | 2021-07-27 11:58 | MM ---
Reason for exam: screening (asymptomatic). Last mammogram was performed 1 year and 5 months ago. History: Patient is postmenopausal and has history of breast cancer at age 48. Excisional biopsy of the left breast, December 03, 2006. Benign US left CoreBiopsy of the left breast, May 31, 2006. Lumpectomy of the right breast, April 2003. Malignant stereotactic core biopsy of the right breast, April 08, 2003. Physical Findings: A clinical breast exam by your physician is recommended on an annual basis and results should be correlated with mammographic findings. MG 3D Screening Mammo W/Cad Bilateral CC and MLO view(s) were taken. Prior study comparison: March 02, 2020, bilateral MG 3d screening mammo w/cad. October 29, 2018, bilateral MG 3d screening mammo w/cad. The breast tissue is heterogeneously dense. This may lower the sensitivity of mammography. There are benign appearing round vascular calcifications bilaterally. There is no discrete abnormality. ASSESSMENT: Benign, BI-RAD 2 RECOMMENDATION: Routine screening mammogram of both breasts in 1 year.
== END | disposition home or self-care (01) ==
LOC: WWCWWP 08:09
PROVIDERS: ATTEND Obstetrics & Gynecology
DX: Z12.31 Encounter for screening mammogram for malignant neoplasm of breast (principal); Z78.0 Asymptomatic menopausal state
CPT/HCPCS: 77063; 77067; 77080

== ENCOUNTER 2021-08-21 12:28 | Inpatient (IN) | payer MEDICARE ==
[2021-08-21] MEDS ORDERED: SODIUM CHLORIDE 0.9% 500 ML 500 ML IV STA (12:48)
--- NOTE | 2021-08-21 12:53 | ED ---
General Adult HPI - General Chief complaint: Fall Stated complaint: Fall Time Seen by Provider: 08/21/21 12:39 Source: patient, EMS, RN notes reviewed Mode of arrival: EMS Limitations: no limitations - History of Present Illness Initial comments: Patient is a pleasant 66-year-old female presenting to the emergency department following syncopal episode. Episode occurred around 8:30 this morning. Patient felt dizzy and sat down the steps. Patient did fall down 2-3 steps after she passed out and does not recall the exact mechanism. Patient denies headache or head injury. No neck or back pain. Patient has mild discomfort of her chest that increases with movement. No abdominal pain. Patient does have mild cough over the past couple of days. No leg pain or leg swelling. Patient has had some intermittent dizziness - Related Data Home Medications Medication Instructions Recorded Confirmed Levothyroxine Sodium [Synthroid] 125 mcg PO QAM 10/18/16 08/21/21 Naproxen Sodium [Aleve] 220 mg PO BID PRN 05/01/18 08/21/21 Cpm/PE/Dm/Acetaminophen/Guaifn 2 tab PO Q4H PRN 08/21/21 08/21/21 [Tylenol Cold-Flu Day-Nt Caplet] Dextroamphetamine/Amphetamine 15 mg PO DAILY 08/21/21 08/21/21 [Dextroamphetamine/Amphetamine ER 15 mg Cap] Dm/Acetaminophen/Doxylamine [Vicks 30 ml PO HS 08/21/21 08/21/21 Nyquil Cold-Flu Liquid] Omeprazole 40 mg PO DAILY 08/21/21 08/21/21 Allergies Allergy/AdvReac Type Severity Reaction Status Date / Time codeine Allergy Itching Verified 08/21/21 13:47 Review of Systems ROS Statement: Those systems with pertinent positive or pertinent negative responses have been documented in the HPI. ROS Other: All systems not noted in ROS Statement are negative. Constitutional: Denies: fever Eyes: Denies: eye pain ENT: Denies: ear pain Respiratory: Reports: as per HPI, cough. Denies: dyspnea Cardiovascular: Reports: as per HPI Endocrine: Reports: fatigue Gastrointestinal: Denies: abdominal pain Genitourinary: Denies: dysuria Musculoskeletal: Denies: back pain Skin: Denies: rash Neurological: Denies: headache Past Medical History Past Medical History: GERD/Reflux, Osteoarthritis (OA), Thyroid Disorder Additional Past Medical History / Comment(s): hypothyroid. seasonal allergies, fx toe rt foot. hx crushing injury lt tibia(sx-plate screws). CIS of right breast 2002. Osteoporosis. 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 Positive high- risk HPV on Pap smears. History of Any Multi-Drug Resistant Organisms: None Reported Past Surgical History: Adenoidectomy, Appendectomy, Breast Surgery, Section, Orthopedic Surgery, Tonsillectomy Additional Past Surgical History / Comment(s): lt tibia plate/screws, rt rotator cuff sx , rt shoulder replacment, knee sx, 3 c-sections, ezekiel lumpectomies, egd w/ dilation, colonoscopy 2015(2nd). Past Anesthesia/Blood Transfusion Reactions: No Reported Reaction Past Psychological History: ADD/ADHD, Anxiety, Depression Smoking Status: Never smoker Past Alcohol Use History: Occasional Past Drug Use History: None Reported - Past Family History Mother Family Medical History: CVA/TIA Additional Family Medical History / Comment(s): aaa, sepsis. Grandmother had diabetes. Father Family Medical History: Hypertension Additional Family Medical History / Comment(s): djd Son(s) Family Medical History: Cancer Additional Family Medical History / Comment(s): Colon cancer. General Exam Limitations: no limitations General appearance: alert, in no apparent distress Head exam: Present: normocephalic Eye exam: Present: normal appearance, PERRL, EOMI ENT exam: Present: normal oropharynx Neck exam: Present: normal inspection. Absent: tenderness Respiratory exam: Present: normal lung sounds bilaterally. Absent: chest wall tenderness Cardiovascular Exam: Present: regular rate, normal rhythm Expanded Peripheral pulses: 2+: Radial (R), Radial (L), Posterior Tibialis (R), Posterior Tibialis (L) GI/Abdominal exam: Present: soft. Absent: distended, tenderness Extremities exam: Present: normal inspection, full ROM. Absent: tenderness Neurological exam: Present: alert, oriented X3, CN II-XII intact. Absent: motor sensory deficit Expanded Neurological exam: Present: protecting the airway Patient oriented to: Present: person, place, time Speech: Present: fluid speech Motor strength exam: RUE: 5, LUE: 5, RLE: 5, LLE: 5 Psychiatric exam: Present: normal affect, normal mood Skin exam: Present: normal color Course Vital Signs 08/21/21 12:34 Temperature 98.9 F Pulse Rate 77 Respiratory 20 Rate Blood Pressure 132/64 O2 Sat by Pulse 94 L Oximetry EKG Findings - EKG Comments: EKG Findings:: Sinus rhythm with rate of 81. FL 124. QRS 70. QT 384. QTC 446. Normal axis. Normal QRS. No acute ST change. Medical Decision Making - Medical Decision Making Patient reevaluated and resting comfortably in bed. Patient has symptoms for the past 2-3 days and therefore is a candidate for monoclonal antibodies. Patient will be held for admission secondary to syncopal episodes. Patient states additionally there was a syncopal episode happened a few days prior. Case discussed with Dr. smiley, who will admit covering Dr. Zamorano. - Lab Data Result diagrams: 08/21/21 12:56 08/21/21 12:56 Lab Results 08/21/21 08/21/21 08/21/21 Range/Units 12:56 12:56 12:56 WBC 4.5 (3.8-10.6) k/uL RBC 4.82 (3.80-5.40) m/uL Hgb 14.3 (11.4-16.0) gm/dL Hct 44.9 (34.0-46.0) % MCV 93.2 (80.0-100.0) fL MCH 29.6 (25.0-35.0) pg MCHC 31.8 (31.0-37.0) g/dL RDW 13.4 (11.5-15.5) % Plt Count 113 L (150-450) k/uL MPV 8.3 Neutrophils % 75 % Lymphocytes % 17 % Monocytes % 6 % Eosinophils % 1 % Basophils % 1 % Neutrophils # 3.3 (1.3-7.7) k/uL Lymphocytes # 0.7 L (1.0-4.8) k/uL Monocytes # 0.3 (0-1.0) k/uL Eosinophils # 0.0 (0-0.7) k/uL Basophils # 0.0 (0-0.2) k/uL PT 10.2 (9.0-12.0) sec INR 0.9 (<1.2) APTT 25.9 (22.0-30.0) sec D-Dimer 4.57 H (<0.60) mg/L FEU Sodium (137-145) mmol/L Potassium (3.5-5.1) mmol/L Chloride (98-107) mmol/L Carbon Dioxide (22-30) mmol/L Anion Gap mmol/L BUN (7-17) mg/dL Creatinine (0.52-1.04) mg/dL Est GFR (CKD-EPI)AfAm (>60 ml/min/1.73 sqM) Est GFR (CKD-EPI)NonAf (>60 ml/min/1.73 sqM) Glucose (74-99) mg/dL Calcium (8.4-10.2) mg/dL Total Bilirubin (0.2-1.3) mg/dL AST (14-36) U/L ALT (4-34) U/L Alkaline Phosphatase (38-126) U/L Troponin I (0.000-0.034) ng/mL Total Protein (6.3-8.2) g/dL Albumin (3.5-5.0) g/dL Coronavirus (PCR) Detected A (Not Detectd) 08/21/21 08/21/21 Range/Units 12:56 12:56 WBC (3.8-10.6) k/uL RBC (3.80-5.40) m/uL Hgb (11.4-16.0) gm/dL Hct (34.0-46.0) % MCV (80.0-100.0) fL MCH (25.0-35.0) pg MCHC (31.0-37.0) g/dL RDW (11.5-15.5) % Plt Count (150-450) k/uL MPV Neutrophils % % Lymphocytes % % Monocytes % % Eosinophils % % Basophils % % Neutrophils # (1.3-7.7) k/uL Lymphocytes # (1.0-4.8) k/uL Monocytes # (0-1.0) k/uL Eosinophils # (0-0.7) k/uL Basophils # (0-0.2) k/uL PT (9.0-12.0) sec INR (<1.2) APTT (22.0-30.0) sec D-Dimer (<0.60) mg/L FEU Sodium 140 (137-145) mmol/L Potassium 4.2 (3.5-5.1) mmol/L Chloride 106 (98-107) mmol/L Carbon Dioxide 25 (22-30) mmol/L Anion Gap 9 mmol/L BUN 10 (7-17) mg/dL Creatinine 0.55 (0.52-1.04) mg/dL Est GFR (CKD-EPI)AfAm >90 (>60 ml/min/1.73 sqM) Est GFR (CKD-EPI)NonAf >90 (>60 ml/min/1.73 sqM) Glucose 106 H (74-99) mg/dL Calcium 9.0 (8.4-10.2) mg/dL Total Bilirubin 0.4 (0.2-1.3) mg/dL AST 45 H (14-36) U/L ALT 38 H (4-34) U/L Alkaline Phosphatase 81 (38-126) U/L Troponin I <0.012 (0.000-0.034) ng/mL Total Protein 7.6 (6.3-8.2) g/dL Albumin 4.2 (3.5-5.0) g/dL Coronavirus (PCR) (Not Detectd) - Radiology Data Radiology results: report reviewed (Brain CT shows degenerative and nonspecific changes. CT angios chest shows groundglass right perihilar infiltrate, correlate for pneumonia or pneumonitis. Follow resolution to exclude underlying neoplasm. No evidence of pulmonary embolism.), image reviewed (Chest x-ray shows some patchy density right midlung.) Disposition Clinical Impression: Syncope, COVID-19 Disposition: ADMITTED IP TO THIS HOSP Is patient prescribed a controlled substance at d/c from ED?: No Referrals: Mari Zamorano DO [Primary Care Provider] - 1-2 days Decision Time: 14:34
[2021-08-21 13:07] LABS: Basophils % (A) 1 %; Eosinophils % (A) 1 %; HCT 44.9 % (34.0-46.0); HGB 14.3 gm/dL (11.4-16.0); Lymphocytes # (A) 0.7 k/uL (1.0-4.8); Lymphocytes % (A) 17 %; MCH 29.6 pg (25.0-35.0); MCHC 31.8 g/dL (31.0-37.0); MCV 93.2 fL (80.0-100.0); Mean Platelet Volume 8.3; Monocytes # (A) 0.3 k/uL (0-1.0); Monocytes % (A) 6 %; Neutrophils # (A) 3.3 k/uL (1.3-7.7); Neutrophils % (A) 75 %; Platelet Count 113 k/uL (150-450); RBC 4.82 m/uL (3.80-5.40); RDW 13.4 % (11.5-15.5); WBC 4.5 k/uL (3.8-10.6)
[2021-08-21 13:24] LABS: ALT 38 U/L (4-34); AST 45 U/L (14-36); African American GFR (CKD) >90 (>60 ml/min/1.73 sqM); Albumin 4.2 g/dL (3.5-5.0); Alkaline Phosphatase 81 U/L (38-126); Anion Gap 9 mmol/L; Blood Urea Nitrogen 10 mg/dL (7-17); Carbon Dioxide 25 mmol/L (22-30); Chloride 106 mmol/L (98-107); Glucose 106 mg/dL (74-99); Non-African American GFR(CKD) >90 (>60 ml/min/1.73 sqM); Potassium 4.2 mmol/L (3.5-5.1); Sodium 140 mmol/L (137-145); Total Bilirubin 0.4 mg/dL (0.2-1.3); Total Protein 7.6 g/dL (6.3-8.2)
--- NOTE | 2021-08-21 13:47 | CT ---
EXAMINATION TYPE: CT brain wo con DATE OF EXAM: 08/21/2021 COMPARISON: 05/01/2018 HISTORY: Fall pain CT DLP: 1123.4 mGycm Automated exposure control for dose reduction was used. FINDINGS: The ventricles, basal cisterns and sulci overlying the cerebral convexities demonstrate mild enlargem ent. There is no evidence for intracranial hemorrhage or sulcal effacement. There is decreased attenu ation about the periventricular white matter and deep white matter of both cerebral hemispheres, comp atible with chronic small vessel ischemia. Differential diagnosis does include demyelination. Focal c alcification left basal ganglia. No mass effects are seen. No midline shift. Osseous calvarium is int act. If symptoms persist consider MRI. IMPRESSION: DEGENERATIVE AND NONSPECIFIC WHITE MATTER CHANGES MOST TYPICAL OF REMOTE WHITE MATTER ISCHEMIA.
--- NOTE | 2021-08-21 13:52 | CT ---
EXAMINATION TYPE: CT angio chest DATE OF EXAM: 08/21/2021 1:34 PM COMPARISON: Chest pain and cough HISTORY: Fall, chest pain, cough CT DLP: 344.9 mGycm Automated exposure control for dose reduction was used. CONTRAST: CTA scan of the thorax is performed with IV Contrast, patient injected with 100 mL of Isovue 370, pul monary embolism protocol. . FINDINGS: There is significant artifact from the right shoulder prostheses. LUNGS: Hyperinflation suggests COPD there is subsegmental areas of consolidation posteriorly most typ ical of atelectasis. Basilar bronchiectasis noted. Within the right perihilar region there is a groun dglass areas of consolidation correlate for pneumonitis or developing pneumonia. No pneumothorax or p leural effusion. MEDIASTINUM: There is satisfactory enhancement of the pulmonary artery and its branches, there is no CT evidence for pulmonary embolism. There are no greater than 1 cm hilar or mediastinal lymph nodes. No pericardial effusion is seen. Coronary artery calcification noted. OTHER: Small hiatal hernia noted. Hypertrophic and degenerative changes of the spine. IMPRESSION: 1. Groundglass areas of right perihilar infiltrate correlate for developing pneumonia or pneumonitis. Follow resolution to exclude underlying neoplasm. 2. No diagnostic evidence of pulmonary embolism.
--- NOTE | 2021-08-21 13:55 | XR ---
EXAMINATION TYPE: XR chest 1V portable DATE OF EXAM: 08/21/2021 COMPARISON: Chest x-ray dated 05/01/2018 HISTORY: Syncope, chest pain TECHNIQUE: Single frontal view of the chest is obtained. FINDINGS: There is patchy density in the right midlung, no pleural effusion or pneumothorax seen. T he cardiac silhouette size is within normal limits. The osseous structures are stable, right should er arthroplasty change is present. IMPRESSION: Correlate for pneumonia, follow-up suggested
[2021-08-21 14:05] LABS: INR 0.9 (<1.2); Partial Thromboplastin Time 25.9 sec (22.0-30.0); Prothrombin Time 10.2 sec (9.0-12.0)
[2021-08-21] MEDS ORDERED: NALOXONE 0.4 MG/ML 1 ML VIAL IV PRN (14:55)
[2021-08-21] MEDS ORDERED: MORPHINE SULFATE 4 MG/ML SYRINGE IVP STA (14:56)
[2021-08-21] MEDS ORDERED: CASIRIVIMAB (REGN10933) (EUA) 600 MG, IMDEVIMAB (REGN10987) (EUA) 600 MG in SODIUM CHLO... IVPB ONE (15:00)
[2021-08-21] MEDS ORDERED: SODIUM CHLORIDE 0.9% 50 ML IVPB ONE (15:00)
[2021-08-21] MEDS: CHOLECALCIFEROL 25 MCG (1000 IU) TABLET PO SCH (16:00)
[2021-08-21 17:55] LABS: Appearance,Urine Clear (Clear); Bilirubin,Urine Negative (Negative); Blood,Urine Negative (Negative); Color,Urine Yellow; Glucose,Urine (UA) Negative (Negative); Ketones,Urine Negative (Negative); Leukocyte Esterase,Urine Moderate (Negative); Mucus,Urine Rare /hpf; Nitrite,Urine Negative (Negative); PH, Urine 6.5 (5.0-8.0); Protein,Urine Negative (Negative); RBC,Urine 3 /hpf (0-5); Squamous Epithelial Cell,Urine 2 /hpf (0-4); Urobilinogen,Urine <2.0 mg/dL (<2.0); WBC,Urine 2 /hpf (0-5)
[2021-08-21 18:14] LABS: Specific Gravity,Urine >1.050 (1.001-1.035)
--- NOTE | 2021-08-21 18:49 | HP ---
HISTORY AND PHYSICAL DATE OF SERVICE: 08/21/2021 CHIEF COMPLAINTS: Fall and weakness and syncope. HISTORY OF PRESENT ILLNESS: This 66-year-old woman with a past medical history of GERD, history of DJD, history of hypothyroidism, history of seasonal allergies, was not feeling well for the past couple of days. The patient is followed by Dr. Loyola in the outpatient setting. Patient had cough and sputum. Apparently the patient . The patient was yesterday. Patient apparently fell down 2 to 3 steps and passed out, and the patient was taken to [facility] and was admitted for evaluation and treatment. There is no history of any fever, rigors or chills. No history of headache, loss of consciousness, seizures. As mentioned earlier, COVID-19 was positive. D-dimer was elevated up to 4.57. The patient also had a CT angio of the chest that was reviewed personally by me and showed ground-glass areas of right perihilar infiltrate, developing pneumonia, highly suggestive of COVID-19 pneumonia. No evidence of pulmonary embolism was noted. Patient was admitted for further evaluation and treatment. There is no history of any fever, rigor or chills at this time. PAST MEDICAL HISTORY: History of DJD, history of hypothyroidism, history of adenoidectomy, appendectomy, history ADD, ADHD, anxiety, depression. HOME MEDICATIONS: Reviewed. They include NyQuil, omeprazole, Naprosyn, levothyroxine. ALLERGIES: CODEINE. FAMILY HISTORY: History of CVA and TIA. SOCIAL HISTORY: No history of smoking. Occasional alcohol intake. REVIEW OF SYSTEMS: ENT: No diminished hearing. No diminished vision. Otherwise as mentioned earlier. Patient had abrasions on the scalp. CARDIOVASCULAR SYSTEM: As mentioned earlier. RESPIRATORY SYSTEM: As mentioned earlier. GI: No nausea, vomiting, diarrhea. : No dysuria. NERVOUS SYSTEM: As mentioned earlier. ALLERGY/IMMUNOLOGY: No asthma or hay fever. MUSCULOSKELETAL: As mentioned earlier. HEMATOLOGY/ONCOLOGY: No history of anemia. ENDOCRINE: As mentioned earlier. CONSTITUTIONAL: As mentioned earlier. DERMATOLOGY: Negative. RHEUMATOLOGY: Negative. PSYCHIATRY: As mentioned earlier. PHYSICAL EXAMINATION: Patient alert and oriented x3. Pulse 77, blood pressure 132/64, respiration 20, temperature 98.9, pulse ox 94% on room air. HEENT: Conjunctivae normal. Oral mucosa moist. NECK: No jugular venous distention. No carotid bruit. No lymph node enlargement. CARDIOVASCULAR: S1, S2 muffled. RESPIRATION: Breath sounds diminished at the bases. A few scattered rhonchi. ABDOMEN: Soft, nontender. No mass palpable. LEGS: No edema. No swelling. NERVOUS SYSTEM: Higher functions as mentioned earlier. Moves all 4 limbs. No focal motor or sensory deficit. LYMPHATICS: No lymph node palpable in neck, axillae or groin. SKIN: No ulcer, rash, bleeding. JOINTS: No active deforming arthropathy. LABS: WBC 4.2, hemoglobin 14.3, platelets 113. Other labs are noted. ASSESSMENT: 1. and syncope for evaluation. Rule out acute transient ischemic attack. 2. Acute COVID-19 infection with acute right perihilar interstitial pneumonia, possibly secondary to COVID-19. 3. Elevated D-dimer with no evidence of pulmonary embolism. 4. Thrombocytopenia. 5. Lymphopenia secondary to COVID-19. 6. Elevated random glucose with elevated AST, ALT, possibly secondary to COVID- 19. 7. Gastroesophageal reflux disease. 8. Degenerative joint disease. 9. Hypothyroidism. 10.Seasonal allergies. 11.History of degenerative joint disease. 12.History of adenoidectomy. 13.History of appendectomy. 14.History of attention deficit disorder, attention deficit hyperactivity disorder, anxiety, depression. RECOMMENDATIONS AND DISCUSSION: In this 66-year-old woman who presented with multiple complex medical issues, at this time we will monitor the patient closely. The patient is given BAM at this time. I would recommend neurology and infectious disease evaluations. D-dimer is highly elevated. I would also recommend evaluation for the other inflammatory parameters of COVID-19. Patient might be a candidate for remdesivir. Pulse ox is 94% on room air. Will continue to monitor. The labs will be repeated and ultrasound of the leg also will be repeated. Prognosis is guarded because of multiple complex medical issues. Will give IV fluids. We will also do a full neurologic workup. Further recommendations to follow. The syncope could be due to a neurological manifestation or secondary to COVID-19. A copy of dictation forwarded to Dr. Loyola, who is the primary physician. MMODL / MAGALIEN: [id number] / [facility]ITALJenniffer
[2021-08-21] MEDS: ACETAMINOPHEN TAB 325 MG TAB PO PRN (21:15)
--- NOTE | 2021-08-21 21:17 | US ---
EXAMINATION TYPE: US venous doppler duplex LE DATE OF EXAM: 08/21/2021 8:24 PM COMPARISON: NONE CLINICAL HISTORY: dvt. R/O DVT. Elevated D dimer. Patient has chest pain. SIDE PERFORMED: Bilateral TECHNIQUE: The lower extremity deep venous system is examined utilizing real time linear array sonog orin with graded compression, doppler sonography and color-flow sonography. VESSELS IMAGED: Common Femoral Vein Deep Femoral Vein Greater Saphenous Vein * Femoral Vein Popliteal Vein Small Saphenous Vein * Proximal Calf Veins (* superficial vessels) Right Leg: No evidence of DVT in veins imaged at this time. Left Leg: CFV, prox femoral vein, and DFV appear to compress incompletely. Possible chronic internal echoes at these levels. *Rouleaux flow seen throughout left leg veins. IMPRESSION: Partial compression of the left common femoral, proximal femoral and deep femoral veins. Findings are concerning for nonocclusive DVT. No evidence of right lower extremity DVT.
--- NOTE | 2021-08-21 21:39 | US ---
EXAMINATION TYPE: US carotid duplex BILAT DATE OF EXAM: 08/21/2021 COMPARISON: NONE CLINICAL HISTORY: stroke. Stroke per order. Dizziness. EXAM MEASUREMENTS: RIGHT: Peak Systolic Velocity (PSV) cm/sec ----- Right CCA: 88.2 ----- Right ICA: 109.2 ----- Right ECA: 117.3 ICA/CCA ratio: 1.2 RIGHT: End Diastole cm/sec ----- Right CCA: 18.7 ----- Right ICA: 25.2 ----- Right ECA: 12.3 LEFT: Peak Systolic Velocity (PSV) cm/sec ----- Left CCA: 69.4 ----- Left ICA: 96.2 ----- Left ECA: 137.8 ICA/CCA ratio: 1.4 LEFT: End Diastole cm/sec ----- Left CCA: 16.3 ----- Left ICA: 23.7 ----- Left ECA: 16.6 VERTEBRALS (direction of flow): Right Vertebral: Antegrade Left Vertebral: Antegrade Rhythm: Normal Plaque seen within bilateral bulbs and prox left ECA. IMPRESSION: No hemodynamically significant stenosis of the bilateral ICAs. Criteria for Assigning % of Stenosis / Diameter reduction (Estimation based on the indirect measurements of the internal carotid artery velocities (ICA PSV). 1. Normal (no stenosis)=ICA PSV < 125 cm/s: ratio < 2.0: ICA EDV<40 cm/s. 2. Less than 50% stenosis=ICA PSV < 125 cm/s: ratio < 2.0: ICA EDV<40 cm/s. 3. 50 to 69% stenosis=ICA PSV of 125 to 230 cm/s: ration 2.0 ? 4.0: ICA EDV 40-100 cm/s. 4. Greater than 70% stenosis to near occlusion= ICA PSV > 230 cm/s: ratio > 4.0: ICA EDV > 100 cm/s. 5. Near occlusion= ICA PSV velocities may be low or undetectable: variable ratio and ICA EDV. 6. Total occlusion=unable to detect flow.
[2021-08-21] MEDS: SODIUM CHLORIDE 0.9% 1,000 ML IV SCH (23:10)
[2021-08-21] MEDS: ASCORBIC ACID 500 MG TAB PO SCH (23:19)
--- NOTE | 2021-08-21 23:41 | P.CONS ---
History of Present Illness - Reason for Consult Consult date: 08/21/21 covid 19 Requesting physician: Murray Maldonado - Chief Complaint fall and passed out x 1 day - History of Present Illness History of Present Illness : Patient is a 66-year-old female presenting to the hospital following a syncopal episode apparently around 830 this morning the patient felt dizzy sat down the steps and patient subsequently did fell down 2-3 steps and the patient passed out did not recall exactly what happens she has been complaining of chest pain and discomfort since the fall denies having any headache or any focal weakness patient also complaining of having a fever that started last that is 17 August 2021 and did have mild cough and some URI symptoms however the patient mention overall improvement in her cough and denies having any shortness of breath no nausea vomiting no abdominal pain or any diarrhea with the symptom the patient was evaluated by ER physician on arrival to the ER the patient was afebrile patient was not hypoxic or need for supplemental oxygen patient did have a normal white count with lymphopenia D-dimer was mildly elevated 4.57 creatinine was normal liver exams are elevated urine dip shows moderate leukocyte esterase but no WBC patient did have positive COVID test patient did have a chest x-ray groundglass areas of right perihilar infiltrate correlate for developing pneumonia and evidence of PE patient was admitted to the hospital infectious was consulted for further management because of underlying positive COVID test patient did received monoclonal antibody infusion in the ER Review of system: CONSTITUTIONAL: Positive for weakness denies high-grade fever. EYES: No complaint. ENT: No complaint. RESPIRATORY: As per history of present illness CARDIOVASCULAR: As per history of present illness. GENITOURINARY: No complaint. GASTROINTESTINAL: No complaint. MUSCULOSKELETAL: No complaint. INTEGUMENTARY : No complaint. PSYCHOLOGIC: No complaint. ENDOCRINE: No complaint. NEUROLOGIC: As per history of present illness. Past medical history : Reviewed, documented below Past surgical history : Reviewed, documented below Social history: Reviewed, documented below Medications: Reviewed, as documented below EXAMINATION: Vital sigans= Reviewed and documented below GENERAL DESCRIPTION: Elderly female lying in bed, no distress. No tachypnea or accessory muscle of respiration use. HEENT: Shows Pallor , no scleral icterus. Oral mucous membrane is dry. NECK: Trachea central, no thyromegaly. LUNGS: Unlabored breathing. Decreased breath sound the base. No wheeze or crackle. HEART: S1, S2, regular rate and rhythm. ABDOMEN: Soft, no tenderness , guarding or rigidity EXTREMITIES: No edema feet SKIN: No rash, no masses palpable. NEUROLOGICAL: The patient is awake, alert, oriented x3, mood and affect normal. LABS AND RADIOLOGY: Reviewed results see below Assessment : Patient with a positive COVID test in this patient symptoms started on August 17, 2021 and has been mostly mild symptoms now presented to hospital with a syncopal episode and did have a positive COVID test with evidence of mild covid19 pneumonia seen on the CT angiogram patient not hypoxic and has received monoclonal antibodies in the ER for nausea treatment will mostly supportive as the patient currently did not qualify for remdesivir per [facility] policy on the basis of no need for supplemental oxygen Plan: 1-patient will be treated with the vitamin C zinc and Lovenox 2-no need for Decadron as the patient is not hypoxic 3-droplet isolation and respiratory support We will follow on clinical condition and cultures to further adjust medication if needed Thank you for this consultation we will follow the patient along with you Past Medical History Past Medical History: GERD/Reflux, Osteoarthritis (OA), Thyroid Disorder Additional Past Medical History / Comment(s): hypothyroid. seasonal allergies, fx toe rt foot. hx crushing injury lt tibia(sx-plate screws). CIS of right breast 2002. Osteoporosis. 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 Positive high- risk HPV on Pap smears. History of Any Multi-Drug Resistant Organisms: None Reported Past Surgical History: Adenoidectomy, Appendectomy, Breast Surgery, Section, Orthopedic Surgery, Tonsillectomy Additional Past Surgical History / Comment(s): lt tibia plate/screws, rt rotator cuff sx , rt shoulder replacment, knee sx, 3 c-sections, ezekiel lumpectomies, egd w/ dilation, colonoscopy 2015(2nd). Past Anesthesia/Blood Transfusion Reactions: No Reported Reaction Smoking Status: Never smoker - Past Family History Mother Family Medical History: CVA/TIA Additional Family Medical History / Comment(s): aaa, sepsis. Grandmother had diabetes. Father Family Medical History: Hypertension Additional Family Medical History / Comment(s): djd Son(s) Family Medical History: Cancer Additional Family Medical History / Comment(s): Colon cancer. Medications and Allergies Home Medications Medication Instructions Recorded Confirmed Type Levothyroxine Sodium [Synthroid] 125 mcg PO QAM 10/18/16 08/21/21 History Naproxen Sodium [Aleve] 220 mg PO BID PRN 05/01/18 08/21/21 History Cpm/PE/Dm/Acetaminophen/Guaifn 2 tab PO Q4H PRN 08/21/21 08/21/21 History [Tylenol Cold-Flu Day-Nt Caplet] Dextroamphetamine/Amphetamine 15 mg PO DAILY 08/21/21 08/21/21 History [Dextroamphetamine/Amphetamine ER 15 mg Cap] Dm/Acetaminophen/Doxylamine [Vicks 30 ml PO HS 08/21/21 08/21/21 History Nyquil Cold-Flu Liquid] Omeprazole 40 mg PO DAILY 08/21/21 08/21/21 History Allergies Allergy/AdvReac Type Severity Reaction Status Date / Time codeine Allergy Itching Verified 08/21/21 13:47 Physical Exam Vitals: Vital Signs Temp Pulse Resp BP Pulse Ox 08/21/21 21:26 81 16 95 08/21/21 12:34 98.9 F 77 20 132/64 94 L Intake and Output 08/21/21 08/21/21 08/22/21 14:59 22:59 06:59 Other: Weight 70.307 kg 70.307 kg Results CBC & Chem 7: 08/21/21 12:56 08/21/21 12:56 Labs: Abnormal Lab Results - Last 24 Hours (Table) 08/21/21 08/21/21 08/21/21 Range/Units 12:56 12:56 12:56 Plt Count 113 L (150-450) k/uL Lymphocytes # 0.7 L (1.0-4.8) k/uL D-Dimer 4.57 H (<0.60) mg/L FEU Glucose (74-99) mg/dL AST (14-36) U/L ALT (4-34) U/L Ur Specific [place] (1.001-1.035) Ur Leukocyte Esterase (Negative) Urine Mucus (None) /hpf Coronavirus (PCR) Detected A (Not Detectd) 08/21/21 08/21/21 Range/Units 12:56 17:50 Plt Count (150-450) k/uL Lymphocytes # (1.0-4.8) k/uL D-Dimer (<0.60) mg/L FEU Glucose 106 H (74-99) mg/dL AST 45 H (14-36) U/L ALT 38 H (4-34) U/L Ur Specific [place] >1.050 H (1.001-1.035) Ur Leukocyte Esterase Moderate H (Negative) Urine Mucus Rare H (None) /hpf Coronavirus (PCR) (Not Detectd)
[2021-08-22] MEDS: ACETAMINOPHEN TAB 325 MG TAB PO PRN ×2 (03:26→09:57)
[2021-08-22] MEDS: SODIUM CHLORIDE 0.9% 1,000 ML IV SCH ×4 (04:45→20:15)
[2021-08-22] MEDS: LEVOTHYROXINE 125 MCG TAB PO SCH (05:44)
[2021-08-22] MEDS ORDERED: PANTOPRAZOLE 40 MG/10 ML VIAL IV SCH (09:00)
[2021-08-22] MEDS: CHOLECALCIFEROL 25 MCG (1000 IU) TABLET PO SCH (09:56)
[2021-08-22] MEDS: PANTOPRAZOLE 40 MG TABLET PO SCH (09:56)
[2021-08-22] MEDS: ENOXAPARIN 40 MG/0.4 ML SYRINGE SQ SCH (09:56)
[2021-08-22] MEDS: ZINC SULFATE 220 MG CAP PO SCH (09:56)
[2021-08-22] MEDS: ASCORBIC ACID 500 MG TAB PO SCH ×2 (09:56→20:14)
[2021-08-22 10:24] LABS: Glucose,Whole Blood 123 mg/dL (75-99)
[2021-08-22 10:51] LABS: Appearance,Urine Cloudy (Clear); Bacteria,Urine Rare /hpf; Bilirubin,Urine Negative (Negative); Blood,Urine Negative (Negative); Color,Urine Yellow; Glucose,Urine (UA) Negative (Negative); Hyaline Casts,Urine 1 /lpf (0-2); Ketones,Urine Negative (Negative); Leukocyte Esterase,Urine Large (Negative); Mucus,Urine Occasional /hpf; Nitrite,Urine Negative (Negative); Protein,Urine Trace (Negative); RBC,Urine 2 /hpf (0-5); Specific Gravity,Urine 1.022 (1.001-1.035); Squamous Epithelial Cell,Urine 7 /hpf (0-4); Urobilinogen,Urine <2.0 mg/dL (<2.0); WBC,Urine 6 /hpf (0-5)
[2021-08-22 11:08] LABS: Basophils # (A) 0.01 X 10*3/uL (0.00-0.10); Basophils % (A) 0.3 %; Eosinophils # (A) 0.03 X 10*3/uL (0.04-0.35); Eosinophils % (A) 0.9 %; HCT 39.1 % (37.2-46.3); HGB 12.4 g/dL (12.0-15.0); Lymphocytes # (A) 1.24 X 10*3/uL (0.90-5.00); Lymphocytes % (A) 39.1 %; MCH 28.8 pg (27.0-32.0); MCHC 31.7 g/dL (32.0-37.0); MCV 90.7 fL (80.0-97.0); Mean Platelet Volume 11.5 fL (9.5-12.2); Monocytes # (A) 0.33 X 10*3/uL (0.20-1.00); Monocytes % (A) 10.4 %; Neutrophils # (A) 1.55 X 10*3/uL (1.80-7.70); Platelet Count 110 X 10*3/uL (140-440); RBC 4.31 X 10*6/uL (4.10-5.20); RDW 13.7 % (11.5-14.5); WBC 3.17 X 10*3/uL (4.50-10.00)
--- NOTE | 2021-08-22 11:57 | ECHOF ---
Referral Reason:Stroke MEASUREMENTS -------- HEIGHT: 157.5 cm WEIGHT: 70.3 kg BP: 107/70 IVSd: 1.1 cm (0.6 - 1.1) LVIDd: 4.0 cm (3.9 - 5.3) LVPWd: 1.1 cm (0.6 - 1.1) IVSs: 1.6 cm LVIDs: 2.7 cm LVPWs: 1.5 cm LAESV Index (A-L): 27.43 ml/m AR PHT: 511 ms FINDINGS -------- Sinus rhythm. This was a technically adequate study. The left ventricular size is normal. Left ventricular wall thickness is normal. Overall left vent ricular systolic function is normal with, an EF between 55 - 60 %. Normal LA size by volume 22+/-6 ml/m2. There is mild aortic regurgitation. Trace tricuspid regurgitation present. There is no pericardial effusion. CONCLUSIONS -------- 1. The left ventricular size is normal. 2. Left ventricular wall thickness is normal. 3. Overall left ventricular systolic function is normal with, an EF between 55 - 60 %. 4. There is mild aortic regurgitation. 5. Trace tricuspid regurgitation present. BODY TECHNICIAN: Ursula Timmons RDCS
[2021-08-22 12:22] LABS: ALT 30 U/L (8-44); AST 30 U/L (13-35); African American GFR (CKD) 115.3 (60.0-200.0); Albumin 3.9 g/dL (3.8-4.9); Albumin/Globulin Ratio 1.77 (1.60-3.17); Alkaline Phosphatase 67 U/L (41-126); Blood Urea Nitrogen 6.8 mg/dL (9.0-27.0); Calcium 8.5 mg/dL (8.7-10.3); Carbon Dioxide 25.5 mmol/L (20.0-27.5); Chloride 103 mmol/L (96-109); Chol/HDL Ratio 2.51 Ratio; Globulin 2.2 g/dL (1.6-3.3); Glucose 100 mg/dL (70-110); LDL Cholesterol,Calculated 73.2 mg/dL (0.0-131.0); Non-African American GFR(CKD) 99.4 (60.0-200.0); Potassium 3.7 mmol/L (3.5-5.5); Sodium 139 mmol/L (135-145); Total Bilirubin <0.20 mg/dL (0.30-1.20); Total Protein 6.1 g/dL (6.2-8.2); VLDL Calculation 17.08 mg/dL (5.00-40.00)
--- NOTE | 2021-08-22 12:41 | P.CRDCN ---
History of Present Illness Consult date: 08/22/21 History of present illness: CHIEF COMPLAINT: Syncope HISTORY OF PRESENT ILLNESS: This is a 66-year-old female with a past medical history significant for hypothyroidism and GERD. 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 We have been asked to see the patient in consultation for syncope. Patient presented to the hospital secondary to syncope. According to the nurse, the patient had a syncopal episode at home and fell down the stairs. The patient was found to be positive for Covid. We were informed later this afternoon by the nurse that the patient got out of bed and had a syncopal episode and her heart rate dropped into the 40s. DIAGNOSTICS: EKG reveals sinus mechanism with heart rate of 81 Chest xray correlate for pneumonia Carotid Doppler: No hemodynamically significant stenosis of bilateral internal carotid arteries Lower extremity Doppler: No evidence of right lower extremity DVT. Partial compression of the left common femoral, proximal femoral and deep femoral veins. Findings are concerning for nonocclusive DVT. Chest CTA: No evidence of PE Echocardiogram completed revealing ejection fraction 55-60%, mild aortic regurgitation, and trace tricuspid regurgitation Laboratory data: WBC 3.17. Hemoglobin 12.4. Platelet count 110. Sodium 139. Potassium 3.7. BUN 6. Creatinine 0.5. Current home cardiac medications include none REVIEW OF SYSTEMS: Thorough review of systems not completed secondary to limited evaluation/examination due to Covid19 PHYSICAL EXAM: Thorough physical exam not completed secondary to limited evaluation/examination due to Covid19 ASSESSMENT: Covid 19 Syncope, suspect vasovagal in nature Orthostatic hypotension Hypothyroidism Possible left lower extremity DVT PLAN: Begin Midodrine 5mg TID Daily orthostatic blood pressures Continue telemetry monitoring Encourage salt intake Continue IV fluids Apply bilateral ASHOK hose Further recommendations pending patient course Nurse practitioner note has been reviewed by physician. Signing provider agrees with the documented findings, assessment, and plan of care. Past Medical History Past Medical History: GERD/Reflux, Osteoarthritis (OA), Thyroid Disorder Additional Past Medical History / Comment(s): hypothyroid. seasonal allergies, fx toe rt foot. hx crushing injury lt tibia(sx-plate screws). CIS of right breast 2002. Osteoporosis. 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 Positive high- risk HPV on Pap smears. History of Any Multi-Drug Resistant Organisms: None Reported Past Surgical History: Adenoidectomy, Appendectomy, Breast Surgery, Section, Orthopedic Surgery, Tonsillectomy Additional Past Surgical History / Comment(s): lt tibia plate/screws, rt rotator cuff sx , rt shoulder replacment, knee sx, 3 c-sections, ezekiel lumpectomies, egd w/ dilation, colonoscopy 2015(2nd). Past Anesthesia/Blood Transfusion Reactions: No Reported Reaction Past Psychological History: ADD/ADHD, Anxiety, Depression Smoking Status: Never smoker Past Alcohol Use History: Occasional Past Drug Use History: None Reported - Past Family History Mother Family Medical History: CVA/TIA Additional Family Medical History / Comment(s): aaa, sepsis. Grandmother had diabetes. Father Family Medical History: Hypertension Additional Family Medical History / Comment(s): djd Son(s) Family Medical History: Cancer Additional Family Medical History / Comment(s): Colon cancer. Medications and Allergies Home Medications Medication Instructions Recorded Confirmed Type Levothyroxine Sodium [Synthroid] 125 mcg PO QAM 10/18/16 08/21/21 History Naproxen Sodium [Aleve] 220 mg PO BID PRN 05/01/18 08/21/21 History Cpm/PE/Dm/Acetaminophen/Guaifn 2 tab PO Q4H PRN 08/21/21 08/21/21 History [Tylenol Cold-Flu Day-Nt Caplet] Dextroamphetamine/Amphetamine 15 mg PO DAILY 08/21/21 08/21/21 History [Dextroamphetamine/Amphetamine ER 15 mg Cap] Dm/Acetaminophen/Doxylamine [Vicks 30 ml PO HS 08/21/21 08/21/21 History Nyquil Cold-Flu Liquid] Omeprazole 40 mg PO DAILY 08/21/21 08/21/21 History Allergies Allergy/AdvReac Type Severity Reaction Status Date / Time codeine Allergy Itching Verified 08/21/21 13:47 Physical Exam Vitals: Vital Signs Temp Pulse Pulse Pulse Pulse Pulse Resp 08/22/21 10:25 68 08/22/21 10:21 58 L 08/22/21 10:00 62 71 76 08/22/21 07:00 98.4 F 64 18 08/22/21 03:11 100.0 F H 87 18 08/21/21 22:13 99.6 F 92 18 08/21/21 21:26 81 16 08/21/21 12:34 98.9 F 77 20 BP BP BP BP BP Pulse Ox 08/22/21 10:25 100/65 08/22/21 10:21 86/51 08/22/21 10:00 89/57 93/59 111/67 08/22/21 07:00 105/58 98 08/22/21 03:11 107/70 94 L 08/21/21 22:13 107/63 92 L 08/21/21 21:26 95 08/21/21 12:34 132/64 94 L Intake and Output 08/21/21 08/22/21 08/22/21 22:59 06:59 14:59 Output Total 100 Balance -100 Output: Urine 100 Other: # Voids 0 Weight 70.307 kg Results 08/22/21 07:40 08/22/21 07:40 Cardiac Enzymes 08/21/21 08/21/21 08/21/21 Range/Units 12:56 12:56 16:23 AST 45 H (14-36) U/L Troponin I <0.012 <0.012 (0.000-0.034) ng/mL 08/21/21 08/22/21 Range/Units 18:51 07:40 AST 30 (14-36) U/L Troponin I <0.012 (0.000-0.034) ng/mL Coagulation 08/21/21 Range/Units 12:56 PT 10.2 (9.0-12.0) sec APTT 25.9 (22.0-30.0) sec Lipids 08/22/21 Range/Units 07:40 Triglycerides 85.40 (0.00-149.00) mg/dL Cholesterol 150.00 (0.00-200.00) mg/dL HDL Cholesterol 59.70 (40.00-60.00) mg/dL Cholesterol/HDL Ratio 2.51 Ratio CBC 08/21/21 08/22/21 Range/Units 12:56 07:40 WBC 4.5 3.17 L (3.8-10.6) k/uL RBC 4.82 4.31 (3.80-5.40) m/uL Hgb 14.3 12.4 (11.4-16.0) gm/dL Hct 44.9 39.1 (34.0-46.0) % Plt Count 113 L 110 L (150-450) k/uL Comprehensive Metabolic Panel 08/21/21 08/22/21 Range/Units 12:56 07:40 Sodium 140 139 (137-145) mmol/L Potassium 4.2 3.7 (3.5-5.1) mmol/L Chloride 106 103 (98-107) mmol/L Carbon Dioxide 25 25.5 (22-30) mmol/L BUN 10 6.8 L (7-17) mg/dL Creatinine 0.55 0.5 L (0.52-1.04) mg/dL Glucose 106 H 100 (74-99) mg/dL Calcium 9.0 8.5 L (8.4-10.2) mg/dL AST 45 H 30 (14-36) U/L ALT 38 H 30 (4-34) U/L Alkaline Phosphatase 81 67 (38-126) U/L Total Protein 7.6 6.1 L (6.3-8.2) g/dL Albumin 4.2 3.9 (3.5-5.0) g/dL Current Medications Generic Name Dose Route Start Last Admin Trade Name Freq PRN Reason Stop Dose Admin Acetaminophen 650 mg 08/21/21 14:55 08/22/21 09:57 Acetaminophen Tab 325 Mg Tab PO 650 mg Q6HR PRN Administration Mild Pain or Fever > 100.5 Ascorbic Acid 500 mg 08/21/21 21:00 08/22/21 09:56 Ascorbic Acid 500 Mg Tab PO 500 mg BID VIRGIL Administration Cholecalciferol 100 mcg 08/21/21 15:00 08/22/21 09:56 Cholecalciferol 25 Mcg (1000 Iu) Tablet PO 100 mcg DAILY VIRGIL Administration Enoxaparin Sodium 40 mg 08/22/21 09:00 08/22/21 09:56 Enoxaparin 40 Mg/0.4 Ml Syringe SQ 40 mg DAILY VIRGIL Administration Sodium Chloride 1,000 mls @ 75 mls/hr 08/21/21 15:00 08/22/21 04:45 Saline 0.9% IV Not Given .[id number] VIRGIL Levothyroxine Sodium 125 mcg 08/22/21 06:30 08/22/21 05:44 Levothyroxine 125 Mcg Tab PO 125 mcg 0630 VIRGIL Administration Midodrine 5 mg 08/22/21 12:30 Midodrine 5 Mg Tab PO AC-TID VIRGIL Naloxone HCl 0.2 mg 08/21/21 14:55 Naloxone 0.4 Mg/Ml 1 Ml Vial IV Q2M PRN Opioid Reversal Pantoprazole Sodium 40 mg 08/22/21 09:00 08/22/21 09:56 Pantoprazole 40 Mg Tablet PO 40 mg DAILY VIRGIL Administration Zinc Sulfate 220 mg 08/22/21 09:00 08/22/21 09:56 Zinc Sulfate 220 Mg Cap PO 220 mg DAILY VIRGIL Administration Intake and Output 08/21/21 08/22/21 08/22/21 22:59 06:59 14:59 Output Total 100 Balance -100 Output: Urine 100 Other: # Voids 0 Weight 70.307 kg 08/22/21 07:40 08/22/21 07:40
[2021-08-22] MEDS: MIDODRINE 5 MG TAB PO SCH ×2 (12:50→16:47)
--- NOTE | 2021-08-22 13:02 | P.CNNES ---
History of Present Illness Consult date: 08/22/21 Requesting physician: Murray Maldonado Reason for Consult: Syncope-TIA vs COVID? History of Present Illness: Patient is a 66-year-old female came to the hospital yesterday at 12:28 PM by ambulance. As per EMS flow sheet, when they arrived, patient was laying on the couch stating she fell earlier during the day, down two of her basement stairs. Patient states that she let the dog outside, became dizzy, sat on the steps. When she got up to let the dog in, she states she fell to the basement floor. Complains of pain in his chest from the fall. No other injury. Patient denies being on the blood thinner. No bruising. Patient's blood pressure at the scene was 128/58, pulse rate 86, respiration 18, saturation 96%, blood sugar 106. Vital signs arrival blood pressure 132/64 pulse rate 77 temperature 98.9. Patient's blood test shows normal electrolytes, normal renal functions. AST slightly elevated 45 and ALT borderline 38. Troponins negative. CBC and PT/PTT normal. UA shows moderate leukocyte esterase. Patient positive for sage virus. CT head showed degenerative and nonspecific white matter changes, most typical of remote white matter ischemia. I reviewed computed tomography scan of the head, and agree with the findings. No acute process. Paranasal sinuses are clear. CTA of the chest showed ground glass areas of right perihilar infiltrate correlate for developing pneumonia or pneumonitis. Follow resolution to exclude underlying neoplasm. No diagnostic evidence of pulmonary embolism. Chest x-ray shows correlate for pneumonia. EKG showing normal sinus rhythm. Carotid Doppler revealed no hemodynamically significant stenosis. Antegrade flow in both vertebral arteries. Patient's home medications include Synthroid, naproxen, Adderall ER 15 mg daily, omeprazole. Patient shortly a while ago had another syncopal spell today. Patient was sitting in the commode, not straining, just urinating, when she was having some chest pain related to the previous musculoskeletal injury. Patient became dizzy, lightheaded, pale. The associate director of nursing helped her sit on the edge of the bed, and later down. During this event, telemetry monitoring reported drop in heart rate from 80s down to the 40s around 45. Her blood pressure was 86/51, pulse rate 65. It did improve to 100/63. Patient had orthostatics checked earlier, in which her supine blood pressure was 111/67 pulse rate 76. Sitting up was 89/57 with pulse of 77. On standing up was 93/59 with pulse of 71. It is positive orthostatics. Patient did not feel dizzy lightheaded with orthostatics checked. Patient tells me that she is very healthy, does not have any major medical issues. Does not smoke. Review of Systems Dizziness, lightheadedness, musculoskeletal chest pain. All other review of sy stems reviewed and unremarkable. Past Medical History Past Medical History: GERD/Reflux, Osteoarthritis (OA), Thyroid Disorder Additional Past Medical History / Comment(s): hypothyroid. seasonal allergies, fx toe rt foot. hx crushing injury lt tibia(sx-plate screws). CIS of right breast 2002. Osteoporosis. Past [employer] history: PID in the . Positive high- risk HPV on Pap smears. History of Any Multi-Drug Resistant Organisms: None Reported Past Surgical History: Adenoidectomy, Appendectomy, Breast Surgery, Section, Orthopedic Surgery, Tonsillectomy Additional Past Surgical History / Comment(s): lt tibia plate/screws, rt rotator cuff sx , rt shoulder replacment, knee sx, 3 c-sections, ezekiel lumpectomies, egd w/ dilation, colonoscopy 2015(2nd). Past Anesthesia/Blood Transfusion Reactions: No Reported Reaction Past Psychological History: ADD/ADHD, Anxiety, Depression Smoking Status: Never smoker Past Alcohol Use History: Occasional Past Drug Use History: None Reported - Past Family History Mother Family Medical History: CVA/TIA Additional Family Medical History / Comment(s): aaa, sepsis. Grandmother had diabetes. Father Family Medical History: Hypertension Additional Family Medical History / Comment(s): djd Son(s) Family Medical History: Cancer Additional Family Medical History / Comment(s): Colon cancer. Medications and Allergies Home Medications Medication Instructions Recorded Confirmed Type Levothyroxine Sodium [Synthroid] 125 mcg PO QAM 10/18/16 08/21/21 History Naproxen Sodium [Aleve] 220 mg PO BID PRN 05/01/18 08/21/21 History Cpm/PE/Dm/Acetaminophen/Guaifn 2 tab PO Q4H PRN 08/21/21 08/21/21 History [Tylenol Cold-Flu Day-Nt Caplet] Dextroamphetamine/Amphetamine 15 mg PO DAILY 08/21/21 08/21/21 History [Dextroamphetamine/Amphetamine ER 15 mg Cap] Dm/Acetaminophen/Doxylamine [Vicks 30 ml PO HS 08/21/21 08/21/21 History Nyquil Cold-Flu Liquid] Omeprazole 40 mg PO DAILY 08/21/21 08/21/21 History Allergies Allergy/AdvReac Type Severity Reaction Status Date / Time codeine Allergy Itching Verified 08/21/21 13:47 Physical Examination - Vital Signs Vital Signs: Vital Signs Temp Pulse Resp BP Pulse Ox 08/21/21 21:26 81 16 95 08/21/21 12:34 98.9 F 77 20 132/64 94 L Intake and Output 08/21/21 08/21/21 08/21/21 06:59 14:59 22:59 Other: Weight 70.307 kg Patient is an elderly female, in no acute distress. Patient is alert awake oriented to time place and person. Patient knows it is 08/22/2021 and that she is in [facility]. Speech and language functions are normal. No aphasia or dysarthria. Attention, concentration and fund of knowledge is adequate. On cranial examination, pupils are round and reacting to light, visual greco are full on confrontation, extraocular muscles are intact with no nystagmus. Fa ce is symmetric, tongue protrudes to the midline. Palatal elevation and sensation normal, hearing and shoulder shrug normal, facial sensation normal. Shoulder shrug normal. On muscle strength testing, there is no pronator drift and the strength is equal in the arms distally and proximally. Patient did not give full effort because of chest pain. Her strength is completely normal in bilateral lower limbs. Deep tendon reflexes are 1+ and plantars downgoing bilaterally. Sensory to touch is equal with no neglect. Cerebellar function showed no ataxia for [id number] testing. No dysdiad ochokinesia. Tone and bulk of muscles normal. Gait not checked. On general examination, there is no carotid bruit or murmur, S1-S2 audible. Abdomen is soft nontender, no organomegaly, bowel sounds audible. Chest is clear. Peripheral pulses are present. No edema. Results - Laboratory Findings CBC and BMP: 08/22/21 07:40 08/22/21 07:40 Abnormal Lab Findings: Abnormal Labs 08/21/21 08/21/21 08/21/21 12:56 12:56 12:56 Plt Count 113 L Lymphocytes # 0.7 L D-Dimer 4.57 H Glucose AST ALT Ur Specific [place] Ur Leukocyte Esterase Urine Mucus Coronavirus (PCR) Detected A 08/21/21 08/21/21 12:56 17:50 Plt Count Lymphocytes # D-Dimer Glucose 106 H AST 45 H ALT 38 H Ur Specific [place] >1.050 H Ur Leukocyte Esterase Moderate H Urine Mucus Rare H Coronavirus (PCR) Assessment and Plan Assessment: * Recurrent syncope, most likely vasovagal versus orthostatic hypotension. The patient's orthostatics are positive. * Acute Covid-19 infection * Osteoarthritis * Hypothyroidism Plan: * Patient's syncopal spells are likely vasovagal versus orthostatic. Patient has acute Covid-19 infection. This may have predisposed for syncopal spells. Patient also has positive orthostatics. Patient had transient bradycardia in mid 40s without any heart block during the syncopal spell today. However she was quite hypotensive as well. Recommend hydration. Cardiology is on board. * Patient's neurological examination is normal. No other neurological workup indicated. * Carotid Doppler revealed no hemodynamically significant stenosis. Antegrade flow in both vertebral arteries. * 2-D echo revealed normal left ventricular size. Normal left ventricular wall thickness. EF is normal 55-60%. Mild aortic regurgitation. Cardiology on board. * Patient on Lovenox 40 mg subcu daily for DVT prophylaxis. Patient has been started on midodrine by cardiology. * Neurologically clear.
[2021-08-22] MEDS: HYDROcodone/APAP 5-325MG 1 EACH TAB PO PRN (20:14)
--- NOTE | 2021-08-22 20:58 | PN ---
PROGRESS NOTE DATE OF SERVICE: 08/22/2021 REASON FOR FOLLOWUP: COVID-19 infection. INTERVAL HISTORY: The patient is afebrile. The patient is feeling better. Apparently she did have a syncopal episode this morning per the nursing staff. The patient's chest pain has decreased in intensity. No nausea, no vomiting. No abdominal pain or diarrhea. PHYSICAL EXAMINATION: Blood pressure 126/76 pulse of 80, temperature 98.3. She is 97% on room air. General description is a middle-aged female lying in bed in no distress. Respiratory system: Unlabored breathing, decreased intensity of breath sounds. No wheeze. Heart S1, S2. Regular rate and rhythm. Abdomen soft, no tenderness. LABS: Hemoglobin is 12.4, white count 3.17, creatinine 0.5. DIAGNOSTIC IMPRESSION AND PLAN: Patient with acute COVID-19 infection, for which the patient has received monoclonal antibodies yesterday. Patient to continue with Lovenox, zinc and ascorbic acid. Patient is currently not hypoxic; no need for supplemental oxygen and would not qualify for remdesivir on steroids. MMODL / IJN: [id number] /
[2021-08-23] MEDS: HYDROcodone/APAP 5-325MG 1 EACH TAB PO PRN ×2 (03:45→12:12)
[2021-08-23] MEDS: SODIUM CHLORIDE 0.9% 1,000 ML IV SCH ×3 (05:02→20:45)
[2021-08-23] MEDS: LEVOTHYROXINE 125 MCG TAB PO SCH (05:46)
--- NOTE | 2021-08-23 08:30 | P.PN ---
Subjective Progress Note Date: 08/22/21 This is a 66-year-old female who was recently admitted with often increased sputum along with not feeling well and recent fall with syncopal event and is being closely monitored. Cardiology along with neurology consulted. Patient did also test positive for Covid and did receive monoclonal antibody. Infectious disease also following. Patient is maintained on Lovenox along with vitamin and zinc supplements and underwent CTA which was negative for PE and venous Dopplers ordered which shows right leg negative for DVT and left leg at the proximal femoral vein and DFV appear to compress incompletely with possible chronic internal echoes at these levels showing partial compression of the left common femoral proximal femoral and deep femoral veins which are concerning for possible nonocclusive DVT. Will verify if Eliquis is covered and initiate this. Per nursing staff patient is extremely weak and attempting to get to the bedside commode and passed out having a syncopal event and orthostatics were positive and patient became hypotensive. Patient has IV fluids running and will increase to 150 mL per hour. Patient's neurological workup includes carotid Doppler which shows no hemodynamically significant stenosis of bilateral ICAs. 2-D echo reveals LV function is normal with an EF of 55-60% with trace of tricuspid regurgitation present. Labs: WBC is 3.17, hemoglobin is 12.4, platelets are 110, sodium 139, potassium 3.7, BUN 6.8, creatinine 0.5, calcium 8.5, troponins have been negative and cholesterol panel within normal limits. Her analysis was negative. Review of systems: Constitutional: reports of fatigue, no reports of fever, or chills Cardiovascular: No reports of chest pain or palpitations Respiratory: No reports of shortness of breath, cough GI: No reports of nausea, vomiting, or diarrhea : No reports of dysuria or retention Neurovascular: reports generalized weakness All medications have been reviewed Active Medications Acetaminophen (Acetaminophen Tab 325 Mg Tab) 650 mg PO Q6HR PRN PRN Reason: Mild Pain or Fever > 100.5 Last Admin: 08/22/21 09:57 Dose: 650 mg Documented by: Ascorbic Acid (Ascorbic Acid 500 Mg Tab) 500 mg PO BID [facility] Last Admin: 08/22/21 09:56 Dose: 500 mg Documented by: Cholecalciferol (Cholecalciferol 25 Mcg (1000 Iu) Tablet) 100 mcg PO DAILY [facility] Last Admin: 08/22/21 09:56 Dose: 100 mcg Documented by: Enoxaparin Sodium (Enoxaparin 40 Mg/0.4 Ml Syringe) 40 mg SQ DAILY [facility] Last Admin: 08/22/21 09:56 Dose: 40 mg Documented by: Sodium Chloride (Saline 0.9%) 1,000 mls @ 150 mls/hr IV .Q6H40M [facility] Last Admin: 08/22/21 12:50 Dose: 100 mls/hr Documented by: Levothyroxine Sodium (Levothyroxine 125 Mcg Tab) 125 mcg PO 0630 [facility] Last Admin: 08/22/21 05:44 Dose: 125 mcg Documented by: Midodrine (Midodrine 5 Mg Tab) 5 mg PO AC-TID [facility] Last Admin: 08/22/21 12:50 Dose: 5 mg Documented by: Naloxone HCl (Naloxone 0.4 Mg/Ml 1 Ml Vial) 0.2 mg IV Q2M PRN PRN Reason: Opioid Reversal Pantoprazole Sodium (Pantoprazole 40 Mg Tablet) 40 mg PO DAILY [facility] Last Admin: 08/22/21 09:56 Dose: 40 mg Documented by: Zinc Sulfate (Zinc Sulfate 220 Mg Cap) 220 mg PO DAILY [facility] Last Admin: 08/22/21 09:56 Dose: 220 mg Documented by: Physical Exam: Gen: This is a 66-year-old female who is awake, alert and oriented 3, well- developed, well-nourished. Temp is 98.4 F, pulse is 64, respirations are 18, blood pressure is 105/58, oxygen saturation is 98% on room air HEENT: Head is atraumatic, normocephalic. Pupils equal, round. Sclerae is anicteric. NECK: Supple. No JVD. No lymphadenopathy. No thyromegaly. LUNGS: Breath sounds diminished with wheezing or rhonchi noted. No intercostal retractions. HEART: S1, S2 are muffled ABDOMEN: Soft. Bowel sounds are present. No masses. No tenderness. EXTREMITIES: No pedal edema. No calf tenderness. NEUROLOGICAL: Patient is awake, alert and oriented 3, no focal deficits . diffusely weak Assessment: Plan: Recommend to continue with current medications, consultations, and symptomatic treatment. Multiple medical consultations including cardiology, neurology, and infectious disease following. Patient currently 98% on room air and denies shortness of breath although extremely weak and hypotensive and had another sy ncopal event that was witnessed with staff attempting to get to the commode. Patient's orthostatics were positive and cardiology was consulted. Troponins have been negative and neurological workup in process as well. Patient's venous Doppler of bilateral lower extremities show right leg negative although left leg concerns for possible nonobstructive DVT and maintained on Lovenox. Will verify if eliquis is covered and initiate. Patient requiring more than 2 night hospitalization given patient's continued ongoing symptoms of syncope and weakness and neurological and cardiac workup. Will Have PT/OT evaluate the patient and repeat a.m. labs. Due to multiple complex medical issues prognosis is guarded. Further recommendations to follow based on the clinical course of the patient. Objective - Vital Signs Vital signs: Vital Signs Temp 98.4 F 08/22/21 07:00 Pulse 68 08/22/21 10:25 Resp 18 08/22/21 07:00 BP 100/65 08/22/21 10:25 Pulse Ox 98 08/22/21 07:00 Intake & Output 08/21/21 08/22/21 08/22/21 18:59 06:59 18:59 Output Total 100 Balance -100 Weight 70.307 kg 70.307 kg Output: Urine 100 Other: # Voids 0 - Labs CBC & Chem 7: 08/22/21 07:40 08/22/21 07:40 Labs: Abnormal Lab Results - Last 24 Hours (Table) 08/21/21 08/21/21 08/21/21 Range/Units 12:56 12:56 12:56 WBC (4.50-10.00) X 10*3/uL MCHC (32.0-37.0) g/dL Plt Count 113 L (150-450) k/uL Neutrophils # (1.80-7.70) X 10*3/uL Lymphocytes # 0.7 L (1.0-4.8) k/uL Eosinophils # (0.04-0.35) X 10*3/uL D-Dimer 4.57 H (<0.60) mg/L FEU BUN (9.0-27.0) mg/dL Creatinine (0.6-1.5) mg/dL Glucose (74-99) mg/dL POC Glucose (mg/dL) (75-99) mg/dL Calcium (8.7-10.3) mg/dL Total Bilirubin (0.30-1.20) mg/dL AST (14-36) U/L ALT (4-34) U/L Total Protein (6.2-8.2) g/dL Urine Appearance (Clear) Ur Specific [place] (1.001-1.035) Urine Protein (Negative) Ur Leukocyte Esterase (Negative) Urine WBC (0-5) /hpf Ur Squamous Epith Cells (0-4) /hpf Urine Bacteria (None) /hpf Urine Mucus (None) /hpf Coronavirus (PCR) Detected A (Not Detectd) 08/21/21 08/21/21 08/22/21 Range/Units 12:56 17:50 07:40 WBC 3.17 L (4.50-10.00) X 10*3/uL MCHC 31.7 L (32.0-37.0) g/dL Plt Count 110 L (150-450) k/uL Neutrophils # 1.55 L (1.80-7.70) X 10*3/uL Lymphocytes # (1.0-4.8) k/uL Eosinophils # 0.03 L (0.04-0.35) X 10*3/uL D-Dimer (<0.60) mg/L FEU BUN (9.0-27.0) mg/dL Creatinine (0.6-1.5) mg/dL Glucose 106 H (74-99) mg/dL POC Glucose (mg/dL) (75-99) mg/dL Calcium (8.7-10.3) mg/dL Total Bilirubin (0.30-1.20) mg/dL AST 45 H (14-36) U/L ALT 38 H (4-34) U/L Total Protein (6.2-8.2) g/dL Urine Appearance (Clear) Ur Specific [place] >1.050 H (1.001-1.035) Urine Protein (Negative) Ur Leukocyte Esterase Moderate H (Negative) Urine WBC (0-5) /hpf Ur Squamous Epith Cells (0-4) /hpf Urine Bacteria (None) /hpf Urine Mucus Rare H (None) /hpf Coronavirus (PCR) (Not Detectd) 08/22/21 08/22/21 08/22/21 Range/Units 07:40 10:19 10:21 WBC (4.50-10.00) X 10*3/uL MCHC (32.0-37.0) g/dL Plt Count (150-450) k/uL Neutrophils # (1.80-7.70) X 10*3/uL Lymphocytes # (1.0-4.8) k/uL Eosinophils # (0.04-0.35) X 10*3/uL D-Dimer (<0.60) mg/L FEU BUN 6.8 L (9.0-27.0) mg/dL Creatinine 0.5 L (0.6-1.5) mg/dL Glucose (74-99) mg/dL POC Glucose (mg/dL) 123 H (75-99) mg/dL Calcium 8.5 L (8.7-10.3) mg/dL Total Bilirubin <0.20 L (0.30-1.20) mg/dL AST (14-36) U/L ALT (4-34) U/L Total Protein 6.1 L (6.2-8.2) g/dL Urine Appearance Cloudy H (Clear) Ur Specific [place] (1.001-1.035) Urine Protein Trace H (Negative) Ur Leukocyte Esterase Large H (Negative) Urine WBC 6 H (0-5) /hpf Ur Squamous Epith Cells 7 H (0-4) /hpf Urine Bacteria Rare H (None) /hpf Urine Mucus Occasional H (None) /hpf Coronavirus (PCR) (Not Detectd)
[2021-08-23 08:53] LABS: Basophils % (A) 0 %; Eosinophils % (A) 1 %; HGB 12.7 gm/dL (11.4-16.0); Lymphocytes # (A) 1.3 k/uL (1.0-4.8); Lymphocytes % (A) 40 %; MCV 93.5 fL (80.0-100.0); Mean Platelet Volume 8.5; Monocytes # (A) 0.2 k/uL (0-1.0); Monocytes % (A) 5 %; Neutrophils # (A) 1.6 k/uL (1.3-7.7); Neutrophils % (A) 50 %; Platelet Count 105 k/uL (150-450); Potassium 3.8 mmol/L (3.5-5.1); RBC 4.38 m/uL (3.80-5.40); WBC 3.3 k/uL (3.8-10.6)
[2021-08-23 08:54] LABS: African American GFR (CKD) >90 (>60 ml/min/1.73 sqM); Anion Gap 4 mmol/L; Blood Urea Nitrogen 6 mg/dL (7-17); Calcium 8.3 mg/dL (8.4-10.2); Carbon Dioxide 29 mmol/L (22-30); Chloride 108 mmol/L (98-107); Glucose 99 mg/dL (74-99); Non-African American GFR(CKD) >90 (>60 ml/min/1.73 sqM); Sodium 141 mmol/L (137-145)
[2021-08-23] MEDS: ENOXAPARIN 40 MG/0.4 ML SYRINGE SQ SCH (09:02)
[2021-08-23] MEDS: MIDODRINE 5 MG TAB PO SCH ×3 (09:02→16:13)
[2021-08-23] MEDS: ZINC SULFATE 220 MG CAP PO SCH (09:02)
[2021-08-23] MEDS: CHOLECALCIFEROL 25 MCG (1000 IU) TABLET PO SCH (09:02)
[2021-08-23] MEDS: PANTOPRAZOLE 40 MG TABLET PO SCH (09:02)
[2021-08-23] MEDS: ASCORBIC ACID 500 MG TAB PO SCH ×2 (09:02→20:41)
--- NOTE | 2021-08-23 12:00 | P.PN ---
Subjective Progress Note Date: 08/23/21 CHIEF COMPLAINT: Syncope HISTORY OF PRESENT ILLNESS: This is a 66-year-old female with a past medical history significant for hypothyroidism and GERD. Patient does not follow with a [facility]. We have been asked to see the patient in consultation for syncop e. Patient presented to the hospital secondary to syncope. According to the nurse, the patient had a syncopal episode at home and fell down the stairs. The patient was found to be positive for Covid. We were informed later this afternoon by the nurse that the patient got out of bed and had a syncopal episode and her heart rate dropped into the 40s. DIAGNOSTICS: EKG reveals sinus mechanism with heart rate of 81 Chest xray correlate for pneumonia Carotid Doppler: No hemodynamically significant stenosis of bilateral internal carotid arteries Lower extremity Doppler: No evidence of right lower extremity DVT. Partial compression of the left common femoral, proximal femoral and deep femoral veins. Findings are concerning for nonocclusive DVT. Chest CTA: No evidence of PE Echocardiogram completed revealing ejection fraction 55-60%, mild aortic regurgitation, and trace tricuspid regurgitation Laboratory data: WBC 3.17. Hemoglobin 12.4. Platelet count 110. Sodium 139. Potassium 3.7. BUN 6. Creatinine 0.5. Current home cardiac medications include none 08/23/2021 Case discussed this morning with patient's nurse. Patient denies any chest pain or pressure. Denies shortness of breath. No further episodes of syncope. Orthostatic blood pressures obtained this morning reveal blood pressure supine 129/78. Blood pressure sitting 123/87. Blood pressure standing 120/78. PHYSICAL EXAM: Thorough physical exam not completed secondary to limited evaluation/examination due to Covid19 ASSESSMENT: Covid 19 Syncope, suspect vasovagal in nature Orthostatic hypotension Hypothyroidism Possible left lower extremity DVT PLAN: Continue current cardiac medications Bilateral ASHOK fang Patient started on Eliquis per internal medicine for possible DVT Continue to check orthostatic blood pressures Continue telemetry monitoring Further recommendations pending patient course Nurse practitioner note has been reviewed by physician. Signing provider agrees with the documented findings, assessment, and plan of care. Objective - Vital Signs Vital signs: Vital Signs Temp 98 F 08/23/21 07:00 Pulse 75 08/23/21 10:55 Resp 18 08/23/21 07:00 BP 129/78 08/23/21 10:55 Pulse Ox 95 08/23/21 07:00 Intake & Output 08/22/21 08/23/21 08/23/21 18:59 06:59 18:59 Intake Total 120 118 Output Total 500 Balance -380 118 Intake: Oral 120 118 Output: Urine 500 Other: # Voids 1 1 # Bowel Movements 1 - Labs CBC & Chem 7: 08/23/21 08:12 08/23/21 08:12 Labs: Abnormal Lab Results - Last 24 Hours (Table) 08/22/21 08/23/21 08/23/21 Range/Units 07:40 08:12 08:12 WBC 3.3 L (3.8-10.6) k/uL Plt Count 105 L (150-450) k/uL Chloride 108 H (98-107) mmol/L BUN 6.8 L 6 L (9.0-27.0) mg/dL Creatinine 0.5 L 0.51 L (0.6-1.5) mg/dL Calcium 8.5 L 8.3 L (8.7-10.3) mg/dL Total Bilirubin <0.20 L (0.30-1.20) mg/dL Total Protein 6.1 L (6.2-8.2) g/dL
[2021-08-23] MEDS: APIXABAN 5 MG TAB PO SCH ×2 (12:12→20:39)
[2021-08-23] MEDS: KETOROLAC 30 MG/ML 1 ML VIAL IVP SCH ×2 (13:38→20:42)
--- NOTE | 2021-08-23 15:03 | P.PN ---
Subjective Progress Note Date: 08/23/21 This is a 66-year-old female who was recently admitted with often increased sputum along with not feeling well and recent fall with syncopal event and is being closely monitored. Cardiology along with neurology consulted. Patient did also test positive for Covid and did receive monoclonal antibody. Infectious disease also following. Patient is maintained on Lovenox along with vitamin and zinc supplements and underwent CTA which was negative for PE and venous Dopplers ordered which shows right leg negative for DVT and left leg at the proximal femoral vein and DFV appear to compress incompletely with possible chronic internal echoes at these levels showing partial compression of the left common femoral proximal femoral and deep femoral veins which are concerning for possible nonocclusive DVT. Will verify if Eliquis is covered and initiate this. Per nursing staff patient is extremely weak and attempting to get to the bedside commode and passed out having a syncopal event and orthostatics were positive and patient became hypotensive. Patient has IV fluids running and will increase to 150 mL per hour. Patient's neurological workup includes carotid Doppler which shows no hemodynamically significant stenosis of bilateral ICAs. 2-D echo reveals LV function is normal with an EF of 55-60% with trace of tricuspid regurgitation present. 08/23/2021 She is seen in follow-up this morning continues with chest wall pain midsternal status post fall. Patient is being followed by infectious disease and cardiology. Anticoagulant was verified and patient started on Eliquis 10 mg twice daily for the next week and will decrease the dose to 5 mg twice daily for left lower extremity DVT. Patient is also maintained on vitamin and zinc supplements and will continue. Patient continues on room air with no difficulty in breathing and denies shortness of breath. Oxygen saturation is 95% on room air. Will add incentive spirometer and encourage the patient to use at least 10 times every hour while awake. Patient's blood pressure more stable and continued on Midodrine . Patient also continues on IV hydration and follow-up labs within normal limits and patient states she is tolerating diet with no reports of nausea or vomiting and diarrhea has resolved. Encouraged increased activity as tolerated and will have physical therapy evaluate the patient. Will add Toradol for chest wall pain and monitor closely. Labs: WBC is 3.3, hemoglobin is 12.7, platelets are 105, sodium is 141, potassium 3.8, BUN 6, creatinine 0.51, calcium is 8.3. Review of systems: Constitutional: reports of fatigue, no reports of fever, or chills Cardiovascular: reports of chest wall pain, denies palpitations Respiratory: No reports of shortness of breath, cough GI: No reports of nausea, vomiting, or diarrhea : No reports of dysuria or retention Neurovascular: reports generalized weakness All medications have been reviewed Active Medications Acetaminophen (Acetaminophen Tab 325 Mg Tab) 650 mg PO Q6HR PRN PRN Reason: Mild Pain or Fever > 100.5 Last Admin: 08/22/21 09:57 Dose: 650 mg Documented by: Hydrocodone Bitart/Acetaminophen (Hydrocodone/Apap 5-325mg 1 Each Tab) 1 each PO Q6HR PRN PRN Reason: Pain Last Admin: 08/23/21 12:12 Dose: 1 each Documented by: Apixaban (Apixaban 5 Mg Tab) 10 mg PO BID [facility]; Protocol Stop: 08/29/21 10:01 Last Admin: 08/23/21 12:12 Dose: 10 mg Documented by: Ascorbic Acid (Ascorbic Acid 500 Mg Tab) 500 mg PO BID [facility] Last Admin: 08/23/21 09:02 Dose: 500 mg Documented by: Cholecalciferol (Cholecalciferol 25 Mcg (1000 Iu) Tablet) 100 mcg PO DAILY [facility] Last Admin: 08/23/21 09:02 Dose: 100 mcg Documented by: Sodium Chloride (Saline 0.9%) 1,000 mls @ 150 mls/hr IV .[id number] [facility] Last Admin: 08/23/21 12:12 Dose: 150 mls/hr Documented by: Ketorolac Tromethamine (Ketorolac 30 Mg/Ml 1 Ml Vial) 15 mg IVP Q6H [facility] Stop: 08/28/21 13:01 Last Admin: 08/23/21 13:38 Dose: 15 mg Documented by: Levothyroxine Sodium (Levothyroxine 125 Mcg Tab) 125 mcg PO 0630 [facility] Last Admin: 08/23/21 05:46 Dose: 125 mcg Documented by: Midodrine (Midodrine 5 Mg Tab) 5 mg PO AC-TID [facility] Last Admin: 08/23/21 12:15 Dose: 5 mg Documented by: Naloxone HCl (Naloxone 0.4 Mg/Ml 1 Ml Vial) 0.2 mg IV Q2M PRN PRN Reason: Opioid Reversal Pantoprazole Sodium (Pantoprazole 40 Mg Tablet) 40 mg PO DAILY [facility] Last Admin: 08/23/21 09:02 Dose: 40 mg Documented by: Zinc Sulfate (Zinc Sulfate 220 Mg Cap) 220 mg PO DAILY [facility] Last Admin: 08/23/21 09:02 Dose: 220 mg Documented by: Physical Exam: Gen: This is a 66-year-old female who is awake, alert and oriented 3, well- developed, well-nourished. Temp is 98.0 F, pulse is 75, respirations are 18, blood pressure is 130/76, oxygen saturation is 95% on room air HEENT: Head is atraumatic, normocephalic. Pupils equal, round. Sclerae is anicteric. NECK: Supple. No JVD. No lymphadenopathy. No thyromegaly. LUNGS: Breath sounds diminished with no wheezing or rhonchi noted. No intercostal retractions. HEART: S1, S2 are muffled ABDOMEN: Soft. Bowel sounds are present. No masses. No tenderness. EXTREMITIES: No pedal edema. No calf tenderness. NEUROLOGICAL: Patient is awake, alert and oriented 3, no focal deficits . diffusely weak Assessment: Fall and syncope for evaluation. Ruled out acute transient ischemic attack Chest pain, most likely musculoskeletal status post fall Acute COVID-19 infection with acute right perihilar interstitial pneumonia, possibly secondary to COVID-19 Elevated d-dimer with no evidence of pulmonary embolism Possible left leg deep vein thrombosis as noted on Doppler, nonobstructive Thrombocytopenia Lymphopenia secondary to COVID-19 Elevated random glucose with elevated AST, ALT, possibly secondary to COVID-19 Gastroesophageal reflux disease degenerative joint disease Hypothyroidism Seasonal ALLERGIES history of degenerative joint disease History of adenoidectomy history of appendectomy History of attention deficit disorder, attention deficit hyperactivity disorder, anxiety depression Plan: Recommend to continue with current medications, consultations, and symptomatic treatment. Multiple medical consultations including cardiology, neurology, and infectious disease following. Patient denies any shortness of breath although continues with chest wall pain most likely musculoskeletal status post fall from syncopal event and unsure if she struck this part of the chest wall during the fall. Will add incentive spirometer encourage the patient to use at least 10 times every hour while awake. We'll also encourage the patient to increase activity as tolerated and will have physical therapy evaluate the patient. Patient does live alone and will have case management discuss home situation. Patient's venous Doppler of bilateral lower extremities show right leg negative although left leg concerns for possible nonobstructive DVT and maintained on Lovenox. Verified that eliquis is covered and started the patient on 10 mg twice daily and will titrate down to 5 mg twice a day in one week. Patient was maintained on IV hydration with no further reports of diarrhea and patient is tolerating diet and will decrease the dose and monitor closely. Patient also continued on Midodrine for hypotension and blood pressure has improved and will decrease and monitor the blood pressures. Recommend to continue his orthostatic vital signs. Due to multiple complex medical issues prognosis is guarded. P ossible discharge in 24 hours. Objective - Vital Signs Vital signs: Vital Signs Temp 98 F 08/23/21 07:00 Pulse 75 08/23/21 10:55 Resp 18 08/23/21 07:00 BP 129/78 08/23/21 10:55 Pulse Ox 95 08/23/21 07:00 Intake & Output 08/22/21 08/23/21 08/23/21 18:59 06:59 18:59 Intake Total 120 118 Output Total 500 Balance -380 118 Intake: Oral 120 118 Output: Urine 500 Other: # Voids 1 1 # Bowel Movements 1 - Labs CBC & Chem 7: 08/23/21 08:12 08/23/21 08:12 Labs: Abnormal Lab Results - Last 24 Hours (Table) 08/22/21 08/23/21 08/23/21 Range/Units 07:40 08:12 08:12 WBC 3.3 L (3.8-10.6) k/uL Plt Count 105 L (150-450) k/uL Chloride 108 H (98-107) mmol/L BUN 6.8 L 6 L (9.0-27.0) mg/dL Creatinine 0.5 L 0.51 L (0.6-1.5) mg/dL Calcium 8.5 L 8.3 L (8.7-10.3) mg/dL Total Bilirubin <0.20 L (0.30-1.20) mg/dL Total Protein 6.1 L (6.2-8.2) g/dL
--- NOTE | 2021-08-23 15:48 | PN ---
PROGRESS NOTE DATE OF SERVICE: 08/23/2021 REASON FOR FOLLOW UP: Covid 19 infection. INTERVAL HISTORY: Patient is afebrile. The patient is breathing comfortably on room air. The patient denies having any has been complaining of chest pain though decreased intensity. No nausea, no vomiting. No abdominal pain or diarrhea. PHYSICAL EXAMINATION: Blood pressure 135/76, pulse of 73, temperature 97.5, she is 95% on room air. General description is an elderly female up in the bed in no distress. Respiratory system: Unlabored breathing, decreased intensity in breath sounds. Heart S1-S2 regular rate and rhythm. LABS: Hemoglobin is 12.1, white count 3.3 with a creatinine 0.51. DIAGNOSTIC IMPRESSION AND PLAN: This patient with a positive Covid test, possible mild in this patient admitted to the hospital with syncopal episode. Has received multiple antibiotics in the ER. The patient hypoxic to continue with Eliquis, zinc and ascorbic acid and we will monitor clinical course closely. MMODL / IJN: [id number] /
[2021-08-23] MEDS ORDERED: ONDANSETRON 4 MG/2 ML VIAL IVP PRN (20:06)
[2021-08-24] MEDS: KETOROLAC 30 MG/ML 1 ML VIAL IVP SCH ×4 (02:50→19:21)
[2021-08-24] MEDS: LEVOTHYROXINE 125 MCG TAB PO SCH (05:27)
[2021-08-24] MEDS: MIDODRINE 5 MG TAB PO SCH (10:05)
[2021-08-24] MEDS: APIXABAN 5 MG TAB PO SCH ×2 (10:06→19:45)
[2021-08-24] MEDS: ZINC SULFATE 220 MG CAP PO SCH (10:07)
[2021-08-24] MEDS: PANTOPRAZOLE 40 MG TABLET PO SCH (10:07)
[2021-08-24] MEDS: CHOLECALCIFEROL 25 MCG (1000 IU) TABLET PO SCH (10:07)
[2021-08-24] MEDS: ASCORBIC ACID 500 MG TAB PO SCH ×2 (10:08→19:45)
[2021-08-24] MEDS ORDERED: MECLIZINE 12.5 MG TAB PO PRN (11:24)
--- NOTE | 2021-08-24 12:05 | XR ---
EXAMINATION TYPE: XR chest 1V portable DATE OF EXAM: 08/24/2021 COMPARISON: 08/21/2021 HISTORY: Shortness of breath TECHNIQUE: Single frontal view of the chest is obtained. FINDINGS: Mild interstitial prominence greatest in the right perihilar region stable. No pleural eff usion. Heart size mildly prominent but stable. Arthropathy is left shoulder postsurgical change right shoulder. Diffuse osteopenia. No pneumothorax. IMPRESSION: 1. Correlate for chronic interstitial lung disease or interstitial pneumonitis most pronounced right perihilar region.
[2021-08-24] MEDS: MECLIZINE 12.5 MG TAB PO SCH ×2 (15:57→21:02)
[2021-08-24] MEDS: SODIUM CHLORIDE 0.9% 1,000 ML IV SCH ×2 (18:32→19:23)
--- NOTE | 2021-08-24 19:22 | PN ---
PROGRESS NOTE DATE OF SERVICE: 08/24/2021 REASON FOR FOLLOWUP: Covid-19 pneumonia. INTERVAL HISTORY: The patient is afebrile. The patient is breathing more comfortably and remains to be on room air. The patient's chest pain has decreased in intensity. Denies any cough or sputum production. No abdominal pain, no diarrhea. PHYSICAL EXAMINATION: Her blood pressure is 151/85 with a pulse of 80, temp 97.9. She is 95% on room air. General description is an elderly female up in the chair in no distress. Respiratory system: Unlabored breathing. Diminished breath sounds with no wheeze. Heart S1, S2. Regular rate and rhythm. Abdomen soft, no tenderness.. LABS: Hemoglobin is 12, white count of 3.3, creatinine 0.51. Chest x-ray with interstitial pneumonia. DIAGNOSTIC IMPRESSION AND PLAN: Patient with acute Covid-19 infection, more likely mild infection. Patient received monoclonal antibodies, admitted to the hospital for syncope with a fall. Patient to continue with current supportive treatment and has no evidence of any worsening. No evidence of any pneumonia. Patient currently on Eliquis, zinc and ascorbic acid and monitor clinical course closely. MMODL / IJN: [id number] /
--- NOTE | 2021-08-25 00:13 | P.PN ---
Subjective Progress Note Date: 08/24/21 Patient was seen for a follow-up. Patient is sitting in the recliner, in no distress. Patient earlier had some episode of nausea, but no vomiting. She feels weak throughout. Feels has no strength. Denies any focal weakness. Patient complains of diarrhea times twice. She feels "little winded". Denies any numbness tingling any focal weakness, visual problems, no facial droop or slurred speech. Patient admits to having some headache in the back of her head, which she feels is from prolonged laying in the bed. Rates it 4-5/10, does not last too long. Patient has been started on midodrine in the hospital. He received she used to be just on Synthroid and Inderal 50 mg for ADD. She feels slightly dizzy, but not as bad. She feels has decreased appetite. Telemetry monitoring only showing sinus rhythm with heart rate in the 85. Objective - Vital Signs Vital signs: Vital Signs Temp 97.6 F 08/24/21 18:50 Pulse 86 08/24/21 18:50 Resp 20 08/24/21 18:50 BP 134/82 08/24/21 18:50 Pulse Ox 95 08/24/21 18:50 Intake & Output 08/24/21 08/24/21 08/25/21 06:59 18:59 06:59 Intake Total 358 Balance 358 Intake: Oral 358 Other: # Voids 3 2 # Bowel Movements 0 - Exam Patient's mental status, speech and language functions are normal. She is alert and oriented 4. Cranial nerves II through XII are intact. Visual greco are full, no neglect. Face is symmetric. There is no pronator drift and the strength is normal in the arms and legs. Still having pain in the sternum. No ataxia. Sensations equal with no neglect. Tone and bulk of muscles normal. Gait deferred. No peripheral edema. - Labs CBC & Chem 7: 08/23/21 08:12 08/23/21 08:12 Assessment and Plan Assessment: * Recurrent syncope, most likely vasovagal versus orthostatic hypotension. The patient's orthostatics are positive. * Acute Covid-19 infection * Osteoarthritis * Hypothyroidism Plan: * Patient's orthostatics checked were negative. Supine blood pressure 151/87, with pulse rate 83. On sitting up was blood pressure 156/75, pulse rate 83. Standing up blood pressure 159/76 and pulse rate 87. * Patient's syncopal spells are likely vasovagal versus orthostatic. Patient has acute Covid-19 infection. This may have predisposed for syncopal spells. * Patient's syncopal spell in the hospital was associated with hypotension and bradycardia. Patient currently on midodrine. Cardiology is on board. * Patient's neurological examination is normal. No other neurological workup indicated. * Carotid Doppler revealed no hemodynamically significant stenosis. Antegrade flow in both vertebral arteries. * 2-D echo revealed normal left ventricular size. Normal left ventricular wall thickness. EF is normal 55-60%. Mild aortic regurgitation. Cardiology on board. * Patient on Lovenox 40 mg subcu daily for DVT prophylaxis. Patient has been started on midodrine by cardiology. * Neurologically clear.
[2021-08-25] MEDS: KETOROLAC 30 MG/ML 1 ML VIAL IVP SCH ×3 (01:00→13:12)
--- NOTE | 2021-08-25 03:15 | P.PN ---
Subjective Progress Note Date: 08/24/21 This is a 66-year-old female who was recently admitted with often increased sputum along with not feeling well and recent fall with syncopal event and is being closely monitored. Cardiology along with neurology consulted. Patient did also test positive for Covid and did receive monoclonal antibody. Infectious disease also following. Patient is maintained on Lovenox along with vitamin and zinc supplements and underwent CTA which was negative for PE and venous Dopplers ordered which shows right leg negative for DVT and left leg at the proximal femoral vein and DFV appear to compress incompletely with possible chronic internal echoes at these levels showing partial compression of the left common femoral proximal femoral and deep femoral veins which are concerning for possible nonocclusive DVT. Will verify if Eliquis is covered and initiate this. Per nursing staff patient is extremely weak and attempting to get to the bedside commode and passed out having a syncopal event and orthostatics were positive and patient became hypotensive. Patient has IV fluids running and will increase to 150 mL per hour. Patient's neurological workup includes carotid Doppler which shows no hemodynamically significant stenosis of bilateral ICAs. 2-D echo reveals LV function is normal with an EF of 55-60% with trace of tricuspid regurgitation present. 08/23/2021 She is seen in follow-up this morning continues with chest wall pain midsternal status post fall. Patient is being followed by infectious disease and cardiology. Anticoagulant was verified and patient started on Eliquis 10 mg twice daily for the next week and will decrease the dose to 5 mg twice daily for left lower extremity DVT. Patient is also maintained on vitamin and zinc supplements and will continue. Patient continues on room air with no difficulty in breathing and denies shortness of breath. Oxygen saturation is 95% on room air. Will add incentive spirometer and encourage the patient to use at least 10 times every hour while awake. Patient's blood pressure more stable and continued on Midodrine . Patient also continues on IV hydration and follow-up labs within normal limits and patient states she is tolerating diet with no reports of nausea or vomiting and diarrhea has resolved. Encouraged increased activity as tolerated and will have physical therapy evaluate the patient. Will add Toradol for chest wall pain and monitor closely. 08/24/2021 She is seen and evaluated this morning currently sitting up in the chair after working with physical therapy with feelings of nausea and dizziness. Multiple medical consultations following including cardiology, infectious disease, and neurology. Patient also reports to feelings of congestion. Patient orthostatic vitals today have been negative and blood pressure is slightly elevated. Patient was maintained on Midodrine for hypotension and will discontinue. Meclizine added for dizziness. Patient with incentive spirometer and has been instructed to continue using at least 10 times per hour. Patient with continued chest wall discomfort, although reports improved somewhat and is on toradol. PT following. Patient has been having some nausea with no reports of vomiting noted. Patient is afebrile. Will order chest xray. Review of systems: Constitutional: reports of fatigue, no reports of fever, or chills Cardiovascular: reports of chest wall pain, denies palpitations Respiratory: No reports of shortness of breath, reports cough and some conges tion GI: reports of nausea, no reports of vomiting, or diarrhea : No reports of dysuria or retention Neurovascular: reports generalized weakness All medications have been reviewed Active Medications Acetaminophen (Acetaminophen Tab 325 Mg Tab) 650 mg PO Q6HR PRN PRN Reason: Mild Pain or Fever > 100.5 Last Admin: 08/22/21 09:57 Dose: 650 mg Documented by: Hydrocodone Bitart/Acetaminophen (Hydrocodone/Apap 5-325mg 1 Each Tab) 1 each PO Q6HR PRN PRN Reason: Pain Last Admin: 08/23/21 12:12 Dose: 1 each Documented by: Apixaban (Apixaban 5 Mg Tab) 10 mg PO BID [facility]; Protocol Stop: 08/29/21 10:01 Last Admin: 08/24/21 10:06 Dose: 10 mg Documented by: Ascorbic Acid (Ascorbic Acid 500 Mg Tab) 500 mg PO BID [facility] Last Admin: 08/24/21 10:08 Dose: 500 mg Documented by: Cholecalciferol (Cholecalciferol 25 Mcg (1000 Iu) Tablet) 100 mcg PO DAILY [facility] Last Admin: 08/24/21 10:07 Dose: 100 mcg Documented by: Sodium Chloride (Saline 0.9%) 1,000 mls @ 75 mls/hr IV .[id number] [facility] Last Admin: 08/23/21 20:45 Dose: 75 mls/hr Documented by: Ketorolac Tromethamine (Ketorolac 30 Mg/Ml 1 Ml Vial) 15 mg IVP Q6H [facility] Stop: 08/28/21 13:01 Last Admin: 08/24/21 13:09 Dose: 15 mg Documented by: Levothyroxine Sodium (Levothyroxine 125 Mcg Tab) 125 mcg PO 0630 [facility] Last Admin: 08/24/21 05:27 Dose: 125 mcg Documented by: Meclizine HCl (Meclizine 12.5 Mg Tab) 12.5 mg PO TID [facility] Last Admin: 08/24/21 15:57 Dose: 12.5 mg Documented by: Naloxone HCl (Naloxone 0.4 Mg/Ml 1 Ml Vial) 0.2 mg IV Q2M PRN PRN Reason: Opioid Reversal Ondansetron HCl (Ondansetron 4 Mg/2 Ml Vial) 4 mg IVP Q6HR PRN PRN Reason: Nausea And Vomiting Pantoprazole Sodium (Pantoprazole 40 Mg Tablet) 40 mg PO DAILY [facility] Last Admin: 08/24/21 10:07 Dose: 40 mg Documented by: Zinc Sulfate (Zinc Sulfate 220 Mg Cap) 220 mg PO DAILY [facility] Last Admin: 08/24/21 10:07 Dose: 220 mg Documented by: Physical Exam: Gen: This is a 66-year-old female who is awake, alert and oriented 3, well- developed, well-nourished. Temp is 98.3 F, pulse is 73, respirations are 16, b lood pressure is 125/76, oxygen saturation is 95% on room air HEENT: Head is atraumatic, normocephalic. Pupils equal, round. Sclerae is anicteric. NECK: Supple. No JVD. No lymphadenopathy. No thyromegaly. LUNGS: Breath sounds diminished with no wheezing or rhonchi noted. No intercostal retractions. HEART: S1, S2 are muffled ABDOMEN: Soft. Bowel sounds are present. No masses. No tenderness. EXTREMITIES: No pedal edema. No calf tenderness. NEUROLOGICAL: Patient is awake, alert and oriented 3, no focal deficits . diffusely weak Assessment: Fall and syncope for evaluation. Ruled out acute transient ischemic attack Chest pain, most likely musculoskeletal status post fall Acute COVID-19 infection with acute right perihilar interstitial pneumonia, possibly secondary to COVID-19 Elevated d-dimer with no evidence of pulmonary embolism Possible left leg deep vein thrombosis as noted on Doppler, non-obstructive Thrombocytopenia Lymphopenia secondary to COVID-19 Elevated random glucose with elevated AST, ALT, possibly secondary to COVID-19 Gastroesophageal reflux disease degenerative joint disease Hypothyroidism Seasonal ALLERGIES history of degenerative joint disease History of adenoidectomy history of appendectomy History of attention deficit disorder, attention deficit hyperactivity disorder, anxiety depression Plan: Recommend to continue with current medications, consultations, and symptomatic treatment. Multiple medical consultations including cardiology, neurology, and infectious disease following. Patient denies any shortness of breath and continuing with incentive spirometer and encouraged the patient to use at least 10 times every hour while awake. Chest xray shows chronic interstitial lung disease or interstitial pneumonitis most pronounced in the right perihilar region. Encouraged the patient to increase activity as tolerated and was evaluated by physical therapy and patient contiues with dizziness when getting up and position changes. Patient with nausea and will add zofran. Patient was given Midodrine for hypotension and blood pressure has improved and will discontinue and monitor the blood pressures. Orthostatic vitals negative. Recommend to increase activity as tolerated and monitor overnight for any worsening symptoms. Patient has been reevaluated by neurology and cleared. Due to multiple complex medical issues prognosis is guarded. Possible discharge in 24 hours. Objective - Vital Signs Vital signs: Vital Signs Temp 98.7 F 08/24/21 11:36 Pulse 83 08/24/21 11:36 Resp 16 08/24/21 11:36 BP 151/87 08/24/21 11:36 Pulse Ox 94 L 08/24/21 11:36 Intake & Output 08/23/21 08/24/21 08/24/21 18:59 06:59 18:59 Intake Total 358 118 Balance 358 118 Intake: Oral 358 118 Other: # Voids 2 3 - Labs CBC & Chem 7: 08/23/21 08:12 08/23/21 08:12
[2021-08-25] MEDS: LEVOTHYROXINE 125 MCG TAB PO SCH (05:49)
[2021-08-25 07:47] VITALS: BP 148/83; PULSE 83; RESP 17; TEMP 98.6
[2021-08-25] MEDS: CHOLECALCIFEROL 25 MCG (1000 IU) TABLET PO SCH (08:45)
[2021-08-25] MEDS: APIXABAN 5 MG TAB PO SCH (08:47)
[2021-08-25] MEDS: MECLIZINE 12.5 MG TAB PO SCH (08:47)
[2021-08-25] MEDS: PANTOPRAZOLE 40 MG TABLET PO SCH (08:47)
[2021-08-25] MEDS: ASCORBIC ACID 500 MG TAB PO SCH (08:47)
[2021-08-25] MEDS: ZINC SULFATE 220 MG CAP PO SCH (08:48)
--- NOTE | 2021-08-25 15:59 | PN ---
PROGRESS NOTE DATE OF SERVICE: 08/25/2021 REASON FOR FOLLOWUP: COVID-19 pneumonia. INTERVAL HISTORY: The patient is afebrile. The patient is feeling better. The patient's chest pain has decreased in intensity. The patient denies having any shortness of breath. cough. No sputum. No nausea, no vomiting. No abdominal pain or diarrhea. Overall feeling better and wants to go home. PHYSICAL EXAMINATION: Blood pressure 147/85, pulse of 75, temperature 98.6. She is 96% on room air. General description is an elderly female up in the bed in no distress. Respiratory system: Unlabored breathing, decreased intensity of breath sounds. No wheeze. Heart S1, S2. Regular rate and rhythm. Abdomen soft, no tenderness. LABS: No new labs have been obtained today. DIAGNOSTIC IMPRESSION AND PLAN: Patient with acute COVID-19 infection, more likely mild infection. Has received monoclonal antibodies. Patient currently with no symptoms of any pneumonia or hypoxemia. Treatment is mostly supportive. Continue Eliquis, zinc and ascorbic acid and close outpatient followup. MMODL / IJN: [id number] /
--- NOTE | 2021-08-25 16:04 | P.DS ---
Providers Date of admission: 08/22/21 12:44 Expected date of discharge: 08/25/21 Attending physician: Ayaz Linn MD Consults: 08/21/21 14:56 Consult Physician Urgent Consulting Provider: Edin Brice Consult Reason/Comments: syncope Do you want consulting provider notified?: Yes 08/21/21 17:52 Consult Physician Routine Consulting Provider: Mirna Mejia Consult Reason/Comments: syncope-tia vs covid? Do you want consulting provider notified?: Yes 08/21/21 18:01 Consult Physician Routine Consulting Provider: Praveen Beasley Consult Reason/Comments: covid Do you want consulting provider notified?: Yes Primary care physician: Mari Zamorano Hospital Course: Final diagnosis Fall and syncope for evaluation. Ruled out acute transient ischemic attack Chest pain, most likely musculoskeletal status post fall Acute COVID-19 infection with acute right perihilar interstitial pneumonia, possibly secondary to COVID-19 Elevated d-dimer with no evidence of pulmonary embolism Possible left leg deep vein thrombosis as noted on Doppler, non-obstructive Thrombocytopenia Lymphopenia secondary to COVID-19 Elevated random glucose with elevated AST, ALT, possibly secondary to COVID-19 Gastroesophageal reflux disease degenerative joint disease Hypothyroidism Seasonal ALLERGIES history of degenerative joint disease History of adenoidectomy history of appendectomy History of attention deficit disorder, attention deficit hyperactivity disorder, anxiety depression Discharge disposition Patient is being discharged in a stable condition with guarded prognosis to home. Patient will follow-up with Dr. Zamorano in the outpatient setting upon discharge. Patient is to continue with vitamin and zinc supplements and patient will be continued on Eliquis 10 mg twice daily for the next 4 days and then titrate down to 5 mg twice daily thereafter. Recommend repeat CBC and BMP in the outpatient setting in 2-3 days. Total time taken is greater than 35 minutes. Hospital course This is a 66-year-old female who was recently admitted generalized weakness not feeling well increased sputum and cough and recent fall with a syncopal event and being closely monitored. Patient was found to be Covid positive in no respiratory distress. Patient did receive the monoclonal antibody in the ER. Patient continued to be on room air and denies any shortness of breath. Patient did have some chest wall pain on the right midsternal area secondary to the fall most likely musculoskeletal. Patient was evaluated by cardiology and neurology for syncopal workup and initially was started on midodrine for hypotension and continued dizziness. Patient's blood pressure improved and was hydrated and midodrine discontinued. Patient did have CTA of the chest which was negative for pulmonary embolism and chest x-ray showing some airspace opacification. Carotid Doppler was within normal limits and patient underwent venous Doppler showing a nonocclusive left lower extremity DVT and started on Eliquis 10 milligrams twice daily for 7 days and then will titrate down to 5 mg twice daily thereafter and recommend close outpatient follow-up with primary care provider along with cardiology. Patient initially was orthostatic although those improved and patient's dizziness has resolved and will continue with meclizine as needed and a prescription was provided. Prescription also provided for follow-up labs in the next 2-3 days. Today patient is feeling much better and would like to go home. Currently no reports of chest pain, shortness of breath, or palpitations. Patient is afebrile. No reports of nausea or vomiting and patient is tolerating diet. Patient will be discharged home today. On exam vital signs are stable. Cardio S1, S2 are muffled. Respiratory system shows diminished breath sounds at the bases with no wheezing or rhonchi noted. Abdomen is soft and obese, and nontender. Nervous system shows diffuse weakness. Please refer to medication reconciliation sheet for a list of medications. Patient Condition at Discharge: Stable Plan - Discharge Summary Discharge Rx Participant: No New Discharge Prescriptions: New Meclizine [Antivert] 12.5 mg PO TID PRN #60 tab PRN Reason: Vertigo Zinc Sulfate [Orazinc] 220 mg PO DAILY 14 Days #14 cap Ascorbic Acid [Vitamin C] 500 mg PO BID 30 Days #60 tab Apixaban [Eliquis Starter Pack (for VTE)] 5 - 10 mg PO DIRECTED 30 Days #1 each Acetaminophen Tab [Tylenol] 650 mg PO Q6HR PRN #30 tab PRN Reason: Mild Pain Or Fever > 100.5 Cholecalciferol [Vitamin D3 (25 Mcg = 1000 Iu)] 50 mcg PO DAILY #60 tablet Ondansetron Odt [Zofran Odt] 4 mg PO Q8HR PRN #20 tab PRN Reason: Nausea Continue Levothyroxine Sodium [Synthroid] 125 mcg PO QAM Naproxen Sodium [Aleve] 220 mg PO BID PRN PRN Reason: Pain Dextroamphetamine/Amphetamine [Dextroamphetamine/Amphetamine ER 15 mg Cap] 15 mg PO DAILY Dm/Acetaminophen/Doxylamine [Vicks Nyquil Cold-Flu Liquid] 30 ml PO HS Omeprazole 40 mg PO DAILY Cpm/PE/Dm/Acetaminophen/Guaifn [Tylenol Cold-Flu Day-Nt Caplet] 2 tab PO Q4H PRN PRN Reason: Cold Symptoms Discharge Medication List Levothyroxine Sodium [Synthroid] 125 mcg PO QAM 10/18/16 [History] Naproxen Sodium [Aleve] 220 mg PO BID PRN 05/01/18 [History] Cpm/PE/Dm/Acetaminophen/Guaifn [Tylenol Cold-Flu Day-Nt Caplet] 2 tab PO Q4H PRN 08/21/21 [History] Dextroamphetamine/Amphetamine [Dextroamphetamine/Amphetamine ER 15 mg Cap] 15 mg PO DAILY 08/21/21 [History] Dm/Acetaminophen/Doxylamine [Vicks Nyquil Cold-Flu Liquid] 30 ml PO HS 08/21/21 [History] Omeprazole 40 mg PO DAILY 08/21/21 [History] Apixaban [Eliquis Starter Pack (for VTE)] 5 - 10 mg PO DIRECTED 30 Days #1 each 08/22/21 [Rx] Acetaminophen Tab [Tylenol] 650 mg PO Q6HR PRN #30 tab 08/25/21 [Rx] Ascorbic Acid [Vitamin C] 500 mg PO BID 30 Days #60 tab 08/25/21 [Rx] Cholecalciferol [Vitamin D3 (25 Mcg = 1000 Iu)] 50 mcg PO DAILY #60 tablet 08/25/21 [Rx] Meclizine [Antivert] 12.5 mg PO TID PRN #60 tab 08/25/21 [Rx] Ondansetron Odt [Zofran Odt] 4 mg PO Q8HR PRN #20 tab 08/25/21 [Rx] Zinc Sulfate [Orazinc] 220 mg PO DAILY 14 Days #14 cap 08/25/21 [Rx] Follow up Appointment(s)/Referral(s): Mari Zamorano DO [Primary Care Provider] - 1-2 days (let the Dr's office know you were just discharged from the hospital) [facility], [NON-STAFF] - 1-2 Days Ambulatory/Diagnostic Orders: Complete Blood Count w/diff [LAB.AMB] Time Frame: 3 Days, Location: None Selected Activity/Diet/Wound Care/Special Instructions: Activity Limited until follow-up Follow-up primary care provider on discharge Continue current diet Encourage fluids and rest Continue with incentive spirometer at least 10 times every hour while awake Follow-up with primary care provider on discharge. ( call sooner with return or worsen of the symptoms that brought you here or any concerns) Recommend repeat labs in 2-3 days continue with Eliquis 10 mg twice daily for the next 4 days and then transition to 5 mg twice daily thereafter Discharge/Stand Alone Forms: [employer] Discharge Disposition: HOME WITH HOME HEALTH SERVICES
== END 2021-08-25 14:22 | disposition home health service (06) | DRG 177 ==
LOC: EC 12:28 → 6NMEDSUR 14:57 → OBSVTOIN 08-22 12:44
PROVIDERS: ADMIT Internal Medicine; ATTEND Internal Medicine
DX: U07.1 COVID-19 (principal); J12.82 Pneumonia due to coronavirus disease 2019; I82.402 Acute embolism and thrombosis of unspecified deep veins of left lower extremity; D69.6 Thrombocytopenia, unspecified; D72.810 Lymphocytopenia; E03.9 Hypothyroidism, unspecified; E11.9 Type 2 diabetes mellitus without complications; K21.9 Gastro-esophageal reflux disease without esophagitis; I95.1 Orthostatic hypotension; J30.2 Other seasonal allergic rhinitis; M19.90 Unspecified osteoarthritis, unspecified site; F32.A Depression, unspecified; M81.0 Age-related osteoporosis without current pathological fracture; R09.02 Hypoxemia; F90.9 Attention-deficit hyperactivity disorder, unspecified type; Z96.611 Presence of right artificial shoulder joint; W10.9XXA Fall (on) (from) unspecified stairs and steps, initial encounter; Z98.890 Other specified postprocedural states; Y92.009 Unspecified place in unspecified non-institutional (private) residence as the place of occurrence of the external cause; Z79.890 Hormone replacement therapy; Z79.899 Other long term (current) drug therapy; Z88.5 Allergy status to narcotic agent; Z90.49 Acquired absence of other specified parts of digestive tract; Z80.0 Family history of malignant neoplasm of digestive organs; Z82.3 Family history of stroke; Z82.49 Family history of ischemic heart disease and other diseases of the circulatory system; Z83.3 Family history of diabetes mellitus
CPT/HCPCS: 36415; 70450; 71045; 71275; 80048; 80053; 80061; 81001; 84484; 85025; 85379; 85610; 85730; 87635; 93005; 93308; 93880; 93970; 96360; 96361; 99285

== ENCOUNTER → 2022-03-21 | Outpatient (CLI) | payer MEDICARE, OTHER ==
--- NOTE | 2022-03-21 09:57 | US ---
EXAMINATION TYPE: US venous doppler duplex LE DATE OF EXAM: 03/21/2022 9:45 AM COMPARISON: Ultrasound 08/21/2021 CLINICAL HISTORY: I82.422 AC EMBLSM AND THROMBOS UNSP DEEP VEIN S OF LT LE. History of left leg DVT SIDE PERFORMED: Bilateral TECHNIQUE: The lower extremity deep venous system is examined utilizing real time linear array sonog orin with graded compression, doppler sonography and color-flow sonography. VESSELS IMAGED: Common Femoral Vein Deep Femoral Vein Greater Saphenous Vein * Femoral Vein Popliteal Vein Small Saphenous Vein * Proximal Calf Veins (* superficial vessels) Right Leg: Appears negative for DVT Left Leg: Appears negative for DVT Previous partial thrombus within the left lower extremity is not identified on the current exam. IMPRESSION: 1. Bilateral lower extremity ultrasound negative for deep venous thrombosis.
== END | disposition home or self-care (01) ==
LOC: RADUSWWP 09:15
PROVIDERS: ATTEND Family Medicine
DX: I82.4Z2 Acute embolism and thrombosis of unspecified deep veins of left distal lower extremity (principal)
CPT/HCPCS: 93970

== ENCOUNTER 2023-01-24 04:31 | Emergency (ER) | payer MEDICARE, OTHER ==
[2023-01-24 04:38] VITALS: BP 158/89; PULSE 78; RESP 18; TEMP 97.7
[2023-01-24] MEDS ORDERED: AMOXIC-POT CLAV 875-125MG 1 EACH TAB PO STA (05:36)
--- NOTE | 2023-01-24 05:38 | ED ---
General Adult HPI - General Chief complaint: Dental/Oral Stated complaint: Tooth Abscess Time Seen by Provider: 01/24/23 04:51 Source: patient Mode of arrival: ambulatory Limitations: no limitations - History of Present Illness Initial comments: This is a 68-year-old female with a past medical history including ADHD and hypothyroidism presented to the emergency department for left-sided tooth swelling and possible abscess. The patient stated that over the last 1 week she had pain in the left lower jaw but stated that she arrived back in town today from flying and noted that she woke up tonight with swelling in the lower aspect of the left jaw. The patient denied any nausea and vomiting as well as any fevers and chills. The patient came to the emergency department just to have assisted with the swelling. The patient did take Aleve with minimal improvement. The patient denied any other acute pain or complaints at this time. - Related Data Home Medications Medication Instructions Recorded Confirmed Levothyroxine Sodium [Synthroid] 125 mcg PO QAM 10/18/16 08/21/21 Naproxen Sodium [Aleve] 220 mg PO BID PRN 05/01/18 08/21/21 Cpm/PE/Dm/Acetaminophen/Guaifn 2 tab PO Q4H PRN 08/21/21 08/21/21 [Tylenol Cold-Flu Day-Nt Caplet] Dextroamphetamine/Amphetamine 15 mg PO DAILY 08/21/21 08/21/21 [Dextroamphetamine/Amphetamine ER 15 mg Cap] Dm/Acetaminophen/Doxylamine [Vicks 30 ml PO HS 08/21/21 08/21/21 Nyquil Cold-Flu Liquid] Omeprazole 40 mg PO DAILY 08/21/21 08/21/21 Previous Rx's Medication Instructions Recorded Apixaban [Eliquis Starter Pack 5 - 10 mg PO DIRECTED 30 Days 08/22/21 (for VTE)] #1 each Acetaminophen Tab [Tylenol] 650 mg PO Q6HR PRN #30 tab 08/25/21 Ascorbic Acid [Vitamin C] 500 mg PO BID 30 Days #60 tab 08/25/21 Cholecalciferol [Vitamin D3 (25 50 mcg PO DAILY #60 tablet 08/25/21 Mcg = 1000 Iu)] Meclizine [Antivert] 12.5 mg PO TID PRN #60 tab 08/25/21 Ondansetron Odt [Zofran Odt] 4 mg PO Q8HR PRN #20 tab 08/25/21 Zinc Sulfate [Orazinc] 220 mg PO DAILY 14 Days #14 cap 08/25/21 Amoxic-Pot Clav 875-125Mg 1 tab PO Q12HR 1 Days #14 tab 01/24/23 [Augmentin 875-125] Allergies Allergy/AdvReac Type Severity Reaction Status Date / Time codeine Allergy Itching Verified 01/24/23 04:38 Review of Systems ROS Statement: Those systems with pertinent positive or pertinent negative responses have been documented in the HPI. ROS Other: All systems not noted in ROS Statement are negative. Past Medical History Past Medical History: GERD/Reflux, Osteoarthritis (OA), Thyroid Disorder Additional Past Medical History / Comment(s): hypothyroid. seasonal allergies, fx toe rt foot. hx crushing injury lt tibia(sx-plate screws). CIS of right breast 2002. Osteoporosis. 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 Positive high- risk HPV on Pap smears. History of Any Multi-Drug Resistant Organisms: None Reported Past Surgical History: Adenoidectomy, Appendectomy, Breast Surgery, Section, Orthopedic Surgery, Tonsillectomy Additional Past Surgical History / Comment(s): lt tibia plate/screws, rt rotator cuff sx , rt shoulder replacment, knee sx, 3 c-sections, ezekiel lumpectomies, egd w/ dilation, colonoscopy 2014(2nd). Past Anesthesia/Blood Transfusion Reactions: No Reported Reaction Past Psychological History: ADD/ADHD, Anxiety, Depression Smoking Status: Never smoker Past Alcohol Use History: Occasional Past Drug Use History: None Reported - Past Family History Mother Family Medical History: CVA/TIA Additional Family Medical History / Comment(s): aaa, sepsis. Grandmother had diabetes. Father Family Medical History: Hypertension Additional Family Medical History / Comment(s): djd Son(s) Family Medical History: Cancer Additional Family Medical History / Comment(s): Colon cancer. General Exam Limitations: no limitations General appearance: alert, in no apparent distress Head exam: Present: atraumatic, normocephalic, normal inspection Eye exam: Present: normal appearance, PERRL Pupils: Present: normal accommodation ENT exam: Present: normal oropharynx, mucous membranes moist, other (Swelling noted to the lower left mandible without any obvious or palpable fluctuant area) Neck exam: Present: normal inspection, full ROM Respiratory exam: Present: normal lung sounds bilaterally Cardiovascular Exam: Present: regular rate, normal rhythm, normal heart sounds GI/Abdominal exam: Present: soft, normal bowel sounds Extremities exam: Present: normal inspection, full ROM Back exam: Present: normal inspection, full ROM Neurological exam: Present: alert, oriented X3, CN II-XII intact Psychiatric exam: Present: normal affect, normal mood Skin exam: Present: warm, dry Course Vital Signs 01/24/23 04:33 Temperature 97.7 F Pulse Rate 78 Respiratory 18 Rate Blood Pressure 158/89 O2 Sat by Pulse 96 Oximetry Medical Decision Making - Medical Decision Making Was pt. sent in by a medical professional or institution (, ANGEL, BLOOD BANK ORDER CONTROL CLERK, urgent care, hospital, or retirement...) When possible be specific @ -No Did you speak to anyone other than the patient for history (EMS, parent, family, police, friend...)? What history was obtained from this source @ -No Did you review nursing and triage notes (agree or disagree)? Why? @ -I reviewed and agree with nursing and triage notes Were old charts reviewed (outside hosp., previous admission, EMS record, old EKG, old radiological studies, urgent care reports/EKG's, retirement records)? Report findings @ -No old charts were reviewed Differential Diagnosis (chest pain, altered mental status, abdominal pain women, abdominal pain men, vaginal bleeding, weakness, fever, dyspnea, syncope, headache, dizziness, GI bleed, back pain, seizure, CVA, palpatations, mental health)? @ -Dental pain, dental abscess, cellulitis EKG interpreted by me (3pts min.). @ -None X-rays interpreted by me (1pt min.). @ -None done CT interpreted by me (1pt min.). @ -None done U/S interpreted by me (1pt. min.). @ -None done What testing was considered but not performed or refused? (CT, X-rays, U/S, labs)? Why? @ -None What meds were considered but not given or refused? Why? @ -None Did you discuss the management of the patient with other professionals (professionals i.e. ANGEL Arredondo, BLOOD BANK ORDER CONTROL CLERK, lab, RT, psych nurse, psych social worker, advertising traffic manager, teacher, executive vice president and chief operating officer, foster care case manager)? Give summary @ -No Was smoking cessation discussed for >3mins.? @ -No Was critical care preformed (if so, how long)? @ -No Were there social determinants of health that impacted care today? How? (Homelessness, low income, unemployed, alcoholism, drug addiction, transportation, low edu. Level, literacy, decrease access to med. care, long-term, rehab)? @ -No Was there de-escalation of care discussed even if they declined (Discuss DNR or withdrawal of care, Hospice)? DNR status @ -No What co-morbidities impacted this encounter? (DM, HTN, Smoking, COPD, CAD, Cancer, CVA, ARF, Chemo, Hep., AIDS, mental health diagnosis, sleep apnea, morbid obesity)? @ -Hypothyroidism Was patient admitted / discharged? Hospital course, mention meds given and route, prescriptions, significant lab abnormalities, going to OR and other pertinent info. @ -The patient was seen and evaluated emergency department. Physical exam, the patient was resting in bed without any acute distress. Vital signs admission were stable. Due to the nature the patient's complaints, no workup or laboratory was obtained. The patient was given a dose of Augmentin as well as a prescription for Augmentin to be taken at home. The patient was advised to follow-up with a dentist or oral surgeon for further workup and evaluation and to report back to the emergency department if she had worsening swelling. The patient was agreeable to this and all her questions were answered appropriate. The patient was discharged home in stable condition. Undiagnosed new problem with uncertain prognosis? @ -No Drug Therapy requiring intensive monitoring for toxicity (Heparin, Nitro, Insulin, Cardizem)? @ -No Were any procedures done? @ -No Diagnosis/symptom? @ -Dental pain Acute, or Chronic, or Acute on Chronic? @ -Acute Uncomplicated (without systemic symptoms) or Complicated (systemic symptoms)? @ -Uncomplicated Side effects of treatment? @ -No Exacerbation, Progression, or Severe Exacerbation? @ -No Poses a threat to life or bodily function? How? (Chest pain, [place], [place], pneumonia, PE, COPD, DKA, ARF, appy, cholecystitis, CVA, Diverticulitis, Homicidal, Suicidal, threat to staff... and all critical care pts) @ -No Disposition Clinical Impression: Pain, dental Disposition: HOME SELF-CARE Condition: Stable Instructions (If sedation given, give patient instructions): Toothache (ED) Prescriptions: Amoxic-Pot Clav 875-125Mg [Augmentin 875-125] 1 tab PO Q12HR 1 Days #14 tab Is patient prescribed a controlled substance at d/c from ED?: No Referrals: Mari Loyola DO [Primary Care Provider] - 1-2 days Time of Disposition: 05:30
== END 2023-01-24 06:05 | disposition home or self-care (01) ==
LOC: EC 04:31
DX: K08.89 Other specified disorders of teeth and supporting structures (principal); E03.9 Hypothyroidism, unspecified; K21.9 Gastro-esophageal reflux disease without esophagitis; M19.90 Unspecified osteoarthritis, unspecified site; Z79.890 Hormone replacement therapy; Z79.899 Other long term (current) drug therapy; Z88.5 Allergy status to narcotic agent
CPT/HCPCS: 99282

== ENCOUNTER → 2024-08-18 | Outpatient (CLI) | payer MEDICARE, OTHER ==
[2024-08-18 10:38] VITALS: BP 145/82; PULSE 92; RESP 16; TEMP 98.3
--- NOTE | 2024-08-18 11:36 | MM ---
Reason for Exam: Screening (asymptomatic). Last mammogram was performed 3 year(s) and 1 month(s) ago. Patient History: Menarche at age 10. First Full-Term at age 17. Postmenopausal. Patient has history of breast feeding. Breast cancer, age 48. 12/03/2006, Excisional Biopsy on the Left side. 04/2003, Lumpectomy on the Right side. 05/31/2006, Benign Core Biopsy on the left side. 04/08/2003, Malignant Stereotactic Core Biopsy on the right side. Prior Study Comparison: 10/29/2018 Bilateral Screening Mammogram, [facility]. 03/02/2020 Bilateral Screening Mammogram, [facility]. 07/25/2021 Bilateral Screening Mammogram, [facility]. Tissue Density: There are scattered areas of fibroglandular density. Findings: Analyzed By CAD. Right breast: There is no suspicious group of microcalcifications or new suspicious mass. Left breast: There is no suspicious group of microcalcifications or new suspicious mass. Overall Assessment: Negative, BI-RAD 1 Management: Screening Mammogram of both breasts in [address] [facility] will attempt to contact patient to return for supplemental views and ultrasound if indicated. Patient should continue monthly self-breast exams. A clinical breast exam by your physician is recommended on an annual basis. This exam should not preclude additional follow-up of suspicious palpable abnormalities. Note on Madelyn scores and lifetime risk: 1. A Madelyn score greater than 3% is considered moderate risk. If this is the case, consider specialist referral to assess eligibility for a risk reducing agent. 2. If overall lifetime risk for the development of breast cancer is 20% or higher, the patient may qualify for future screening with alternating mammogram and breast MRI. [facility], , 08/18/2024 11:25 AM. Electronically signed and approved by: John Pino DO
--- NOTE | 2024-08-18 11:47 | BD ---
EXAMINATION TYPE: Axial Bone Density DATE OF EXAM: 08/18/2024 CLINICAL HISTORY: 69 years old Female. ICD-10 CODE: Z78.0 ASY MEN , Additional History: Height: 61.5 in Weight: 187 lbs FRAX RISK QUESTIONS: History of Fracture in Adulthood: lt tibia fx age 39; rt shoulder age 59 MEDICATIONS: Thyroid Medications: yes Which medication: Levothyroxine How Lon years EXAM MEASUREMENTS: Bone mineral densitometry was performed using the Gipis System. Bone mineral density as measured about the Lumbar spine is: ----- L1-L4(G/cm2): 0.945 T Score Values are as follows: ----- L1: -1.7 ----- L2: -2.7 ----- L3: -1.3 ----- L4: -2.1 ----- L1-L4: -2.0 Z Score Values are as follows: ----- L1: -0.7 ----- L2: -1.7 ----- L3: -0.3 ----- L4: -1.1 ----- L1-L4: -0.9 Bone mineral density has: Increased 7.3% since study of: 07/25/2021 Bone mineral density about the R hip (g/cm2): 0.764 Bone mineral density about the L hip (g/cm2): 0.706 T Score values are as follows: -----R Neck: -2.3 -----L Neck: -2.5 -----R Total: -1.9 -----L Total: -2.4 Z Score values are as follows: -----R Neck: -0.9 -----L Neck: -1.2 -----R Total: -0.9 -----L Total: -1.3 Bone mineral density has: Decreased -3.9% since study of: 07/25/2021 FRAX%s: The graph provided illustrates a 22.0% chance for a major osteoporotic fx and a 5.6% chance f or the hips probability for fx in 10 years time. IMPRESSION: Osteopenia (T Score between -2.5 and -1). There is slightly increased risk of fracture and the patient may be considered for treatment. Re-Screen 2-5 years. NOTE: T-SCORE=SD OF THE YOUNG ADULT MEAN. [facility], , 08/18/2024 11:45 AM
--- NOTE | 2024-08-18 11:51 | P.HPOB ---
History of Present Illness H&P Date: 08/18/24 Chief Complaint: The patient is here for her routine gynecologic exam and ma mmogram. This is a 69-year-old with an LMP of 2006. The patient is without gynecologic complaints and denies any postmenopausal bleeding. She has a history of abnormal Pap smears. She has undergone colposcopies for low-grade changes and positive HPV testing on 10/31/2017 and 10/13/2021. Both showed HPV or low-grade changes. She has not had a Pap smear done since her last colposcopy on 10/13/2021. Review of Systems She has gained about 4 pounds over the past 3 years. Review of systems is unremarkable Past Medical History Past Medical History: GERD/Reflux, Osteoarthritis (OA), Thyroid Disorder Additional Past Medical History / Comment(s): hypothyroid. seasonal allergies, fx toe rt foot. hx crushing injury lt tibia(sx-plate screws). CIS of right breast 2002. Osteoporosis. 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 Positive high- risk HPV on Pap smears. History of Any Multi-Drug Resistant Organisms: None Reported Past Surgical History: Adenoidectomy, Appendectomy, Breast Surgery, Section, Orthopedic Surgery, Tonsillectomy Additional Past Surgical History / Comment(s): lt tibia plate/screws, rt rotator cuff sx , rt shoulder replacment, knee sx, 3 c-sections, ezekiel lumpectomies, egd w/ dilation, colonoscopy 2014(2nd). Past Anesthesia/Blood Transfusion Reactions: No Reported Reaction Past Psychological History: ADD/ADHD, Anxiety, Depression Smoking Status: Never smoker Past Alcohol Use History: Rare (3 or 4 drinks per year.) Past Drug Use History: None Reported Additional History: She is single and has not been sexually active since about 2020. She is retired. - Past Family History Mother Family Medical History: CVA/TIA Additional Family Medical History / Comment(s): aaa, sepsis. Grandmother had diabetes. Father Family Medical History: Hypertension Additional Family Medical History / Comment(s): djd Son(s) Family Medical History: Cancer Additional Family Medical History / Comment(s): 2 sons had colon cancer. 1 son had testicular cancer. Medications and Allergies Home Medications Medication Instructions Recorded Confirmed Type Levothyroxine Sodium [Synthroid] 125 mcg PO QAM 10/18/16 08/18/24 History Naproxen Sodium [Aleve] 220 mg PO BID PRN 05/01/18 08/18/24 History Omeprazole 40 mg PO DAILY 08/21/21 08/18/24 History Ascorbic Acid [Vitamin C] 500 mg PO BID 30 Days #60 tab 08/25/21 08/18/24 Rx Cholecalciferol [Vitamin D3 (25 50 mcg PO DAILY #60 tablet 08/25/21 08/18/24 Rx Mcg = 1000 Iu)] Allergies Allergy/AdvReac Type Severity Reaction Status Date / Time codeine Allergy Itching Verified 08/18/24 10:31 Exam Vital Signs Temp Pulse Resp BP Pulse Ox 08/18/24 10:37 98.3 F 92 16 145/82 96 Intake and Output 08/17/24 08/18/24 08/18/24 22:59 06:59 14:59 Other: Weight 84.368 kg Height 5 feet 2 inches, weight 186 pounds, BMI 34.0. This is a well-developed well-nourished white female who is alert and oriented times 3 in no acute distress. HEENT: Within normal limits. NECK: Supple without mass or thyromegaly. CHEST AND LUNGS: Clear to auscultation. HEART: Regular rate and rhythm. BREASTS: Are without mass or discharge. AXILLARY EXAM: Negative for adenopathy. BACK: Negative for CVA tenderness. ABDOMEN: Soft, nontender, without palpable masses. PELVIC EXAM: Normal external genitalia with mild atrophy. Cervix and vagina appear normal with mild atrophy. There is no unusual discharge. There is no evidence of prolapse. The uterus is midposition, nongravid size and nontender. There are no palpable adnexal masses or tenderness. RECTAL EXAM: Rectovaginal exam is negative for mass or tenderness and is negative for occult blood. EXTREMITIES: Nontender. IMPRESSION: 1. 69-year-old menopausal female with normal gynecologic exam. 2. History of low-grade abnormal Pap smears with positive high-risk HPV testing. She is status post colposcopies on 10/31/2017 and 10/13/2021. These revealed HPV or low-grade changes. PLAN: 1. Pap smear cotest was performed. 2. Self breast awareness was discussed with the patient. We have also discussed symptoms associated with inflammatory breast cancer. 3. Screening mammogram was done today. 4. Osteoporosis management was discussed. I have stressed the importance of adequate calcium, vitamin D and regular exercise. Recommended amounts of calcium and vitamin D were also discussed. She has declined treatment with medications for osteoporosis in the past. Bone density test was done today. We will review this with the patient and again talk about medications after we review the results. 5. I recommended a colonoscopy. She states she is due for this and plans to do this through her PCP in the near future. She understands that she should not be doing the screening for colorectal cancer with Cologuard testing because of her family history of colon cancer. 6. She was advised to return in one year for her annual well woman exam.
== END | disposition home or self-care (01) ==
LOC: RADBDWWP 09:14
PROVIDERS: ATTEND Obstetrics & Gynecology
DX: Z12.31 Encounter for screening mammogram for malignant neoplasm of breast (principal); R92.323 Mammographic fibroglandular density, bilateral breasts; M85.89 Other specified disorders of bone density and structure, multiple sites; E03.9 Hypothyroidism, unspecified; K21.9 Gastro-esophageal reflux disease without esophagitis; M81.0 Age-related osteoporosis without current pathological fracture; Z78.0 Asymptomatic menopausal state; Z85.3 Personal history of malignant neoplasm of breast
CPT/HCPCS: 77063; 77067; 77080